=== PATIENT | male | born 1975 | race Caucasian/White ===

== ENCOUNTER 2024-07-25 15:02 | Outpatient (AMB) | payer MEDICARE, MEDICAID, SELFPAY ==
--- OUTSIDE RECORDS SUMMARY | 2024-07-25 15:04 | XMS_ITS ---
Author Organization Unknown ALLERGIES AND ADVERSE REACTIONS No information ASSESSMENT No information CHIEF COMPLAINT No information MEDICATIONS No information OBJECTIVE DATA No information PHYSICAL EXAMINATION No information TREATMENT PLAN Planned Care Start Date Provider Encounter for Check-up [id number] PROBLEMS No information RESULTS No information REVIEW OF SYSTEMS No information SUBJECTIVE DATA No information VITAL SIGNS No information
--- OUTSIDE RECORDS SUMMARY | 2024-07-25 15:04 | XMS_ITS | Data Portability ---
Author Organization [facility], Main Office Address [address] [facility] [address] [place] [address] Care Team Providers Care Planning Manager Name Role Phone CLARY MORALES Primary Care Provider [phone] [facility] Clinical Nursing Professor ZHANE HODGE Manual Arts Therapy Teacher Assessment Encounter Date Assessment Date Assessment LastModified by Organization Details LastModified Time 06/26/2023 06/26/2023 This service was provided using telemedicine. Patient consented to telephone visit Patient was located in the [facility]. Provider was located in the office. No other persons participated in the telemedicine visit except for the patient unless otherwise indicated here. {{}} Total time of visit was 22 minutes. pmadden Not available 06/26/2023 13:26:36 07/24/2023 07/24/2023 This service was provided using telemedicine. Patient consented to telephone visit Patient was located in the [facility]. Provider was located in the office. No other persons participated in the telemedicine visit except for the patient unless otherwise indicated here. {{}} Total time of visit was 22 minutes. pmadden Not available 07/24/2023 11:45:59 04/08/2024 04/08/2024 This service was provided using telemedicine. Patient consented to telephone visit Patient was located in the [facility]. Provider was located in the office. No other persons participated in the telemedicine visit except for the patient unless otherwise indicated here. {{}} Total time of visit was 23 minutes. pmadden Not available 04/08/2024 15:52:16 Plan of Treatment Reminders Order Date Submit Date Provider Last Modified By Organization Details Last Modified Time Details Appointments None record ed. Lab HbA1c (hemog lobin A1c), blood 2023 024 [email or web address] [facility], [address], [place], [address], 4 09:18:50 microa lbumin , urine 2023 024 [email or web address] [facility], [address], [address], [place], [address], 4 10:57:07 BMP, serum or plasma 2023 024 [email or web address] [facility], [address], [address], [place], [address], 4 11:47:21 lipid panel, serum 2023 024 SRUTHI [facility], [address] [place], [address], 4 06:08:23 BMP, serum or plasma 2023 024 SRUTHI [facility], [address] [place], [address], 4 06:08:22 HbA1c (hemog lobin A1c), blood 2023 024 SRUTHI [facility], [address] , [facility] [address], [place], [address], 4 18:05:55 CMP, serum or plasma 2023 024 SRUTHI [facility], [address], [address], [place], [address], 4 18:05:53 microa lbumin /creat inine, mass ratio, urine 2023 024 SRUTHI [facility], [address], [address], [place], [address], 4 18:05:54 Hepati tis C IgG Ab, qual, serum 2023 024 [facility], [address] , [facility] [address], [place], [address], 4 18:05:55 HBsAg (hepat itis B surfac e Ag), EIA, serum 2023 024 [facility], [address] [facility], [address] [address], [place], [address], 4 18:05:57 HIV 1 + 2, meanin gful use set 2023 024 [facility], [address] [facility], [address] [address], [place], [address], 4 18:05:56 trepon isaias pallid um IgG + IgM Ab, QL, IA, serum 2023 024 [facility], [address] [facility], [address] [address], [place], [address], 4 18:05:56 CT + NG RNA, PCR, unspec ified specim en 2023 024 [facility], [address] [facility], [address] [address], [place], [address], 4 18:05:54 hepati tis B core IgM Ab, qual, serum or plasma 2023 024 [facility], [address] [facility], [address] [address], [place], [address], 4 18:05:57 HbA1c (hemog lobin A1c), blood 2023 024 [facility], [address] [facility], [facility] [address], [place], [address], 4 03:04:26 BMP, serum or plasma 2023 024 [facility], [address] [facility], [address] [address], [place], [address], 4 03:04:26 vitami n D, 25-hyd lizz, total, serum 2023 024 [email or web address] [facility], [address], [place], [address], 4 09:23:13 celiac diseas e serolo gy panel, serum 2023 024 SRUTHI [facility], [address] [facility], [facility] [address], [place], [address], 4 03:04:26 Referral diabet ic ophtha lmolog y referr al 2023 024 [email or web address] [facility], [address], [place], [address], 4 09:53:23 nutrit ionist /dieti joby referr al 2023 024 [email or web address] Not available 4 11:05:50 nutrit ionist /dieti joby referr al 2023 024 [email or web address] Not available 4 09:14:57 psychi atrist referr al [address], [address], [place], [address], 4 16:13:59 Procedures None record ed. Surgeries None record ed. Imaging None record ed. Medication Orders buspir one 10 mg tablet 2022 023 [id number], [address] [place], [address], 4 14:19:14 buprop ion HCl SR 150 mg tablet ,12 hr sustai lesia-re lease 2023 024 [place] [id number], [address] [place], [address], 4 15:00:52 buspir one 10 mg tablet 2023 024 [id number], [address] [facility], [place], [address], 4 15:00:52 Patient Targets Encounter Date Encounter Id Patient Goals Patient Target Last Modified By Organization Details Last Modified Time 09/26/2023 [id number] Ongoing of Microalbumin/Cre atinine Ratio yearly Not available Not available Not available Ongoing of Blood Pressure 130 / 80 Not available Not available Not available Ongoing of Hemoglobin A1C 2 times per yr Not available Not available Not available Ongoing of Hemoglobin A1C <7 Not available Not available Not available Ongoing of LDL Direct <100 Not available Not available Not available Ongoing of Cholesterol, LDL <100 Not available Not available Not available Pt advised and agrees to do moderate exercise (such as walking) for approximately 150 minutes per week; to decrease carbohydrate intake (25 % of total carbohydrates or less); and to monitor blood glucose as directed Will bring meter and/or readings to appointments. Patient preferences and goals incorporated in plan and updated/modified as needed to reflect progress toward goal. pmadden Not available 09/26/2023 13:34:22 03/03/2024 [id number] Ongoing of Microalbumin/Cre atinine Ratio yearly Not available Not available Not available Ongoing of Blood Pressure 130 / 80 Not available Not available Not available Ongoing of Hemoglobin A1C 2 times per yr Not available Not available Not available Ongoing of Hemoglobin A1C <7 Not available Not available Not available Ongoing of LDL Direct <100 Not available Not available Not available Ongoing of Cholesterol, LDL <100 Not available Not available Not available Pt advised and agrees to do moderate exercise (such as walking) for approximately 150 minutes per week; to decrease carbohydrate intake (25 % of total carbohydrates or less); and to monitor blood glucose as directed Will bring meter and/or readings to appointments. Patient preferences and goals incorporated in plan and updated/modified as needed to reflect progress toward goal. pmadden Not available 03/03/2024 14:55:22 Patient Instructions Encounter Date Encounter Id Patient Instructions Last Modified By Sukhdev on Details Last Modified Time 06/26/2023 [id number] temporomandibula r disorder: care instructions pmadden Not available 06/26/2023 13:25:41 learning about stress pmadden Not available 06/26/2023 11:43:28 Mental Health Information pmadden Not available 06/26/2023 11:43:28 Medications (OTC , herbal therapies, supplements) reviewed and reconciled with patient and or caregiver, including potential side effects, drug interactions, instructions, and the consequences of not taking medication. Reviewed potential barriers to medication adherence, such as side effects from medication or cost of medication. pmadden Not available 06/26/2023 13:25:58 07/24/2023 [id number] Medications (OTC , herbal therapies, supplements) reviewed and reconciled with patient and or caregiver, including potential side effects, drug interactions, instructions, and the consequences of not taking medication. Reviewed potential barriers to medication adherence, such as side effects from medication or cost of medication. pmadden Not available 07/24/2023 13:04:14 09/26/2023 [id number] starting a weigh t loss plan: care instructions pmadden Not available 09/26/2023 13:36:11 Nutrition Referr al and Weight Management Follow-up Information pmadden Not available 09/26/2023 13:36:11 encouraged pt to check outstanding labs as directed pmadden Not available 09/26/2023 13:15:57 Medications (OTC , herbal therapies, supplements) reviewed and reconciled with patient and or caregiver, including potential side effects, drug interactions, instructions, and the consequences of not taking medication. Reviewed potential barriers to medication adherence, such as side effects from medication or cost of medication. [email or web address] Not available 09/26/2023 13:01:44 03/03/2024 [id number] starting a weigh t loss plan: care instructions pmadden Not available 03/03/2024 15:00:46 Nutrition Referr al and Weight Management Follow-up Information pmadden Not available 03/03/2024 15:00:45 learning about stress pmadden Not available 03/03/2024 15:00:45 Mental Health Information pmadden Not available 03/03/2024 15:00:45 Medications (OTC , herbal therapies, supplements) reviewed and reconciled with patient and or caregiver, including potential side effects, drug interactions, instructions, and the consequences of not taking medication. Reviewed potential barriers to medication adherence, such as side effects from medication or cost of medication. pmadden Not available 03/03/2024 14:55:40 04/08/2024 [id number] Medications (OTC , herbal therapies, supplements) reviewed and reconciled with patient and or caregiver, including potential side effects, drug interactions, instructions, and the consequences of not taking medication. Reviewed potential barriers to medication adherence, such as side effects from medication or cost of medication. pmadden Not available 04/08/2024 15:44:37 Reason for Referral Shoe Shiner/dietitian Refer ral for Body mass index 30+ - obesity Referring Physician: Clary Morales, Internal Medicine, Encounter Date: 09/26/2023 Diabetic Ophthalmology Refer ral for Renal disorder due to type 2 diabetes mellitus Referring Physician: Clary Morales, Internal Medicine, Encounter Date: 09/26/2023 Shoe Shiner/dietitian Refer ral for Body mass index 40+ - severely obese Referring Physician: Clary Morales, Internal Medicine, Encounter Date: 03/03/2024 Psychiatrist Referral for Ma avelino depressive disorder Referring Physician: Clary Morales, Internal Medicine, Encounter Date: 04/08/2024 Results Created Date Observation Date Name Description Value Unit Range Abnormal Flag Note LastModifiedBy Organization Detail LastModifiedTime 09/26/1909/27/2023 BASIC METAB OLIC PANEL (8) glucose 101 mg/dL 70-99 above high normal Not Available [facility] ([facility]) [address] [place], [address], 09/28/2023 06:08:22 09/26/1909/27/2023 BASIC METAB OLIC PANEL (8) BUN 12 mg/dL 6-24 Not Available [facility] ([facility]) [address] [place], [address], 09/28/2023 06:08:22 09/26/1909/27/2023 BASIC METAB OLIC PANEL (8) creatinine 0.86 mg/dL 0.76-1 .27 Not Available [facility] ([facility]) [address] [place], [address], 09/28/2023 06:08:22 09/26/19 24 09/27/2023 BASIC METAB OLIC PANEL (8) eGFR 108 mL/mi n/1.7 3 >59 Not Available [facility] ([facility]) [address], [place], [address], 09/28/2023 06:08:22 09/26/19 24 09/27/2023 BASIC METAB OLIC PANEL (8) BUN/creatini ne ratio 14 9-20 Not Available [facility] ([facility]) [address], [place], [address], 09/28/2023 06:08:22 09/26/19 24 09/27/2023 BASIC METAB OLIC PANEL (8) sodium 135 mmol/ L 134-14 4 Not Available [facility] ([facility]) [address], [place], [address], 09/28/2023 06:08:22 09/26/19 24 09/27/2023 BASIC METAB OLIC PANEL (8) potassium 4.1 mmol/ L 3.5-5. 2 Not Available [facility] ([facility]) [address], [place], [address], 09/28/2023 06:08:22 09/26/19 24 09/27/2023 BASIC METAB OLIC PANEL (8) chloride 95 mmol/ L 96-106 below low normal Not Available [facility] ([facility]) [address] [facility], [place], [address], 09/28/2023 06:08:22 09/26/19 24 09/27/2023 BASIC METAB OLIC PANEL (8) carbon dioxide, total 23 mmol/ L 20-29 Not Available [facility] ([facility]) [address] [facility], [place], [address], 09/28/2023 06:08:22 09/26/19 24 09/27/2023 BASIC METAB OLIC PANEL (8) calcium 10.0 mg/dL 8.7-10 .2 Not Available [facility] ([facility]) [address] [facility], [place], [address], 09/28/2023 06:08:22 09/26/19 24 09/27/2023 LIPID PANEL cholesterol, total 138 mg/dL 100-19 9 Not Available [facility] ([facility]) [address] [facility], [place], [address], 09/28/2023 06:08:23 09/26/19 24 09/27/2023 LIPID PANEL triglyceride s 208 mg/dL 0-149 above high normal Not Available [facility] ([facility]) [address] [facility], [place], [address], 09/28/2023 06:08:23 09/26/19 24 09/27/2023 LIPID PANEL HDL cholesterol 46 mg/dL >39 Not Available [facility] ([facility]) [address] [facility], [place], [address], 09/28/2023 06:08:23 09/26/19 24 09/27/2023 LIPID PANEL VLDL cholesterol gabino 34 mg/dL 5-40 Not Available [facility] ([facility]) [address] [place], [address], 09/28/2023 06:08:23 09/26/19 24 09/27/2023 LIPID PANEL LDL chol calc ([facility]) 58 mg/dL 0-99 Not Available [facility]) [address] [facility], [place], [address], 09/28/2023 06:08:23 09/26/19 24 09/27/2023 LIPID PANEL comment: ONCOLOGIST Not Available [facility] ([facility]) [address] [place], [address], 09/28/2023 06:08:23 03/03/20 24 03/04/2024 COMP. METAB OLIC PANEL (14) glucose 98 mg/dL 70-99 normal Not Available [facility] ([facility]) [address] [facility] [place], [address], 03/04/2024 18:05:53 03/03/20 24 03/04/2024 COMP. METAB OLIC PANEL (14) BUN 14 mg/dL 6-24 normal Not Available [facility] ([facility]) [address] [facility] [place], [address], 03/04/2024 18:05:53 03/03/20 24 03/04/2024 COMP. METAB OLIC PANEL (14) creatinine 0.64 mg/dL 0.76-1 .27 below low normal Not Available [facility] ([facility]) [address] [facility] [place], [address], 03/04/2024 18:05:53 03/03/20 24 03/04/2024 COMP. METAB OLIC PANEL (14) eGFR 118 mL/mi n/1.7 3 >59 normal Not Available [facility] ([facility]) [address] [facility] [place], [address], 03/04/2024 18:05:53 03/03/20 24 03/04/2024 COMP. METAB OLIC PANEL (14) BUN/creatini ne ratio 22 9-20 above high normal Not Available [facility] ([facility]) [address] [facility] [place], [address], 03/04/2024 18:05:53 03/03/20 24 03/04/2024 COMP. METAB OLIC PANEL (14) sodium 140 mmol/ L 134-14 4 normal Not Available [facility] ([facility]) [address] [facility] [place], [address], 03/04/2024 18:05:53 03/03/20 24 03/04/2024 COMP. METAB OLIC PANEL (14) potassium 4.5 mmol/ L 3.5-5. 2 normal Not Available [facility] ([facility]) [address] [place], [address], 03/04/2024 18:05:53 03/03/20 24 03/04/2024 COMP. METAB OLIC PANEL (14) chloride 101 mmol/ L 96-106 normal Not Available [facility] ([facility]) [address] [place], [address], 03/04/2024 18:05:53 03/03/20 24 03/04/2024 COMP. METAB OLIC PANEL (14) carbon dioxide, total 24 mmol/ L 20-29 normal Not Available [facility] ([facility]) [address] [place], [address], 03/04/2024 18:05:53 03/03/20 24 03/04/2024 COMP. METAB OLIC PANEL (14) calcium 10.3 mg/dL 8.7-10 .2 above high normal Not Available [facility] ([facility]) [address] [place], [address], 03/04/2024 18:05:53 03/03/20 24 03/04/2024 COMP. METAB OLIC PANEL (14) protein, total 7.4 g/dL 6.0-8. 5 normal Not Available [facility] ([facility]) [address] [place], [address], 03/04/2024 18:05:53 03/03/20 24 03/04/2024 COMP. METAB OLIC PANEL (14) albumin 5.0 g/dL 4.1-5. 1 normal Not Available [facility] ([facility]) [address] [place], [address], 03/04/2024 18:05:53 03/03/20 24 03/04/2024 COMP. METAB OLIC PANEL (14) globulin, total 2.4 g/dL 1.5-4. 5 Not Available [facility] ([facility]) [address] [facility] [place], [address], 03/04/2024 18:05:53 03/03/20 24 03/04/2024 COMP. METAB OLIC PANEL (14) bilirubin, total 0.4 mg/dL 0.0-1. 2 normal Not Available [facility] ([facility]) [address] [facility] [place], [address], 03/04/2024 18:05:53 03/03/20 24 03/04/2024 COMP. METAB OLIC PANEL (14) alkaline phosphatase 74 IU/L 44-121 normal Not Available [facility]) [address] [facility] [place], [address], 03/04/2024 18:05:53 03/03/20 24 03/04/2024 COMP. METAB OLIC PANEL (14) AST (SGOT) 22 IU/L 0-40 normal Not Available [facility] ([facility]) [address] [facility] [place], [address], 03/04/2024 18:05:53 03/03/20 24 03/04/2024 COMP. METAB OLIC PANEL (14) ALT (SGPT) 32 IU/L 0-44 normal Not Available [facility] ([facility]) [address] [place], [address], 03/04/2024 18:05:53 03/03/20 24 03/04/2024 ALBUM IN/CR EAT RATIO , RANDO M UR creatinine, urine 88.5 mg/dL not estab. normal Not Available [facility] ([facility]) [address] [place], [address], 03/04/2024 18:05:54 03/03/20 24 03/04/2024 ALBUM IN/CR EAT RATIO , RANDO M UR albumin, urine 4.8 ug/mL not estab. Not Available [facility] ([facility]) [address] [place], [address], 03/04/2024 18:05:54 03/03/20 24 03/04/2024 ALBUM IN/CR EAT RATIO , TERRY Arreola UR alb/creat ratio 5 mg/g_ creat 0-29 Dawna l: 0 - 29 Moder ately incre ased: 30 - 300 Sever eddie incre ased: >300 Not Available [facility] ([facility]) [address] [facility], [place], [address], 03/04/2024 18:05:54 03/03/20 24 03/04/2024 CHLAM YDIA/ GC AMPLI FICAT ION chlamydia trachomatis, TAVO NEGATI VE negati ve Not Available [facility] ([facility]) [address] [facility], [place], [address], 03/04/2024 18:05:54 03/03/20 24 03/04/2024 CHLAM YDIA/ GC AMPLI FICAT ION neisseria gonorrhoeae, TAVO NEGATI VE negati ve Not Available [facility] ([facility]) [address] [facility], [place], [address], 03/04/2024 18:05:54 03/03/20 24 03/04/2024 HCV ANTIB YING RFX TO QUANT PCR HCV Ab NON REACTI VE non reacti ve Not Available [facility] ([facility]) [address] [place], [address], 03/04/2024 18:05:55 03/03/20 24 03/04/2024 HCV ANTIB YING RFX TO QUANT PCR interpretati on: COMMEN T Not infec sierra with HCV unles s early or acute infec tion is suspe cted (whic h may be delay ed in an immun ocomp romis ed indiv idual ), or other evide nce exist s to indic ate HCV infec tion. Not Available [facility] ([facility]) [address] [facility], [place], [address], 03/04/2024 18:05:55 03/03/20 24 03/04/2024 HEMOG LOBIN A1C hemoglobin A1C 6.2 % 4.8-5. 6 above high normal Predi abete s: 5.7 - 6.4 Diabe lizzy: >6.4 Glyce prudencio contr ol for adult s with diabe lizzy: <7.0 Not Available [facility] ([facility]) [address] [place], [address], 03/04/2024 18:05:55 03/03/20 24 03/04/2024 T PALLI DUM SCREE REINA CASCA DE T pallidum antibodies NON REACTI VE non reacti ve Not Available [facility] ([facility]) [address] [place], [address], 03/04/2024 18:05:56 03/03/20 24 03/04/2024 HIV AB/P2 4 AG WITH REFLE X HIV Ab/P24 Ag screen NON REACTI VE non reacti ve HIV-1 /HIV- 2 antib odies and HIV-1 p24 antig en were NOT detec sierra. There is no labor atory evide nce of HIV infec tion. HIV Negat snehal Not Available [facility] ([facility]) [address] [facility], [place], [address], 03/04/2024 18:05:56 03/03/20 24 03/04/2024 HBSAG SCREE N HBsAg screen NEGATI VE negati ve Not Available [facility] ([facility]) [address] [place], [address], 03/04/2024 18:05:57 03/03/2003/04/2024 HEP B CORE AB, IGM hep B core Ab, IgM NEGATI VE negati ve Not Available [facility] ([facility]) [address] [place], [address], 03/04/2024 18:05:57 Result Notes None recorded. Problems Name Problem SNOMED Code Status Onset Date Resolution Date Notes Provider Name and Address Organization Details Recorded Time Depressi ve disorder 89406874 Completed 03/05/2022 Clary Morales PA-C [address], [place], [address] , [facility] 2 21:05:23 Anxiety disorder 922531081 Active 2011 Jael wei, [facility] 7 14:34:39 Cellulit is and abscess of buttock 502423605 Completed 201102/03/2014 RECORDED 01/26/20 12 9:03AM BY MAGNUS SIDDIQUI MA, ANNOTATI ON/ADDEN DUM Not Available [facility] 4 15:13:47 Chest pain [id number] Completed 201102/03/2014 RECORDED 01/26/20 12 9:03AM BY MAGNUS SIDDIQUI MA, ANNOTATI ON/ADDEN DUM Not Available [facility] 4 15:13:47 Recurren t major depressi ve episodes , in full remissio n Completed 201103/05/2022 Clary Morales PA-C [address], [place], [address] , [facility] 2 21:05:57 Exposure to organism Completed 201102/03/2014 RECORDED 01/26/20 12 9:03AM BY MAGNUS SIDDIQUI MA, ANNOTATI ON/ADDEN DUM Not Available [facility] 4 15:13:47 Malaise and fatigue [id number] Completed 201102/03/2014 IMPRESSI ON: LONG HX OF MIXED ANXIETY AND DEPRESSI ON, ON WELLBUTR IN ALONE WHICH HE HAS BEEN NON COMPLIAN T WITH. TRIED ON ZOLOFT IN THE PAST WHICH HE BELIEVES WAS INEFFECT SNEHAL. MORE RECENTLY TRIED ON CELEXA, HAD AGGITATI ON AND SUICIDAL THOUGHTS . D/C AFTER 12 DAYS. FOR NOW WILL RESTART WELLBUTR IN AND USE BENZO PRN SPARINGL Y. MOOD STABLE, DECLINES FURTHER PSYCH EVAL OR OR THERAPY. ; RECORDED 04/02/20 12 7:43AM BY SAMARA SCHULTZK I, ANNOTATI ON/ADDEN DUM Not Available [facility] 4 15:13:47 Influenz a vaccine needed [id number] 06 Completed 201102/03/2014 RECORDED 03/11/20 12 8:38AM BY SAMARA ACUÑA I, OFFICE VISIT Not Available [facility] 4 15:13:47 Noninfec tious gastroen teritis [id number] Completed 201102/03/2014 RECORDED 01/26/20 12 9:03AM BY MAGNUS SIDDIQUI MA, ANNOTATI ON/ADDEN DUM Not Available [facility] [facility] 4 15:13:47 Internal hordeolu m [id number] Completed 201102/03/2014 RECORDED 01/26/20 12 9:03AM BY MAGNUS SIDDIQUI MA, ANNOTATI ON/ADDEN DUM Not Available [facility] 4 15:13:47 Pure hypercho lesterol emia [id number] Completed 201102/03/2014 RECORDED 01/26/20 12 9:03AM BY MAGNUS SIDDIQUI MA, ANNOTATI ON/ADDEN DUM Not Available [facility] 4 15:13:47 Insomnia 494966971 Active 2011 Jael wei MA [facility] 7 14:34:35 Administ ration of bacteria l and viral vaccine Completed 200802/03/2014 RECORDED 12/31/19 09 2:17PM BY TONYA ADAMES, OFFICE VISIT Not Available [facility] 4 15:13:47 High risk sexual behavior 663559300 Completed 201102/03/2014 RECORDED 01/26/20 12 9:03AM BY MAGNUS SIDDIQUI MA, ANNOTATI ON/ADDEN DUM Not Available [facility] 4 15:13:47 Adult health examinat ion Completed 201102/03/2014 RECORDED 01/26/20 12 9:03AM BY MAGNUS SIDDIQUI MA, ANNOTATI ON/ADDEN DUM Not Available [facility] 4 15:13:47 Drug abuse 23484073 Active 2011 Jael wei CM [facility] 7 14:34:41 Tobacco dependen ce syndrome 11315697 Active 2011 Jael wei CM [facility] 7 14:34:51 Cellulit is and abscess of buttock 604924931 Completed 201102/23/2014 RECORDED 01/26/20 12 9:03AM BY MAGNUS SIDDIQUI MA, ANNOTATI ON/ADDEN DUM Not Available [facility] 4 06:00:27 Chest pain 82365622 Completed 201102/23/2014 RECORDED 01/26/20 12 9:03AM BY MAGNUS SIDDIQUI MA, ANNOTATI ON/ADDEN DUM Not Available [facility] 4 06:00:27 Exposure to organism Completed 201102/23/2014 RECORDED 01/26/20 12 9:03AM BY MAGNUS SIDDIQUI MA, GONZALOATI ON/ADDEN DUM Not Available [facility] 4 06:00:27 Malaise and fatigue 097632109 Completed 201102/23/2014 IMPRESSI ON: LONG HX OF MIXED ANXIETY AND DEPRESSI ON, ON WELLBUTR IN ALONE WHICH HE HAS BEEN NON COMPLIAN T WITH. TRIED ON ZOLOFT IN THE PAST WHICH HE BELIEVES WAS INEFFECT SNEHAL. MORE RECENTLY TRIED ON CELEXA, HAD AGGITATI ON AND SUICIDAL THOUGHTS . D/C AFTER 12 DAYS. FOR NOW WILL RESTART WELLBUTR IN AND USE BENZO PRN SPARINGL Y. MOOD STABLE, DECLINES FURTHER PSYCH EVAL OR OR THERAPY. ; RECORDED 04/02/20 12 7:43AM BY SAMARA ACUÑA I, ANNOTATI ON/ADDEN DUM Not Available [facility] 4 06:00:27 Influenz a vaccine needed [id number] 06 Completed 201102/23/2014 RECORDED 03/11/20 12 8:38AM BY SAMARA ACUÑA I, OFFICE VISIT Not Available [facility] 4 06:00:27 Noninfec tious gastroen teritis 29725569 Completed 201102/23/2014 RECORDED 01/26/20 12 9:03AM BY MAGNUS SIDDIQUI MA, ANNOTATI ON/ADDEN DUM Not Available [facility] 4 06:00:27 Internal aneesh arreola [id number] Completed 201102/23/2014 RECORDED 01/26/20 12 9:03AM BY MAGNUS SIDDIQUI MA, ANNOTATI ON/ADDEN DUM Not Available [facility] 4 06:00:27 Pure hypercho lesterol emia 063700476 Completed 201102/23/2014 RECORDED 01/26/20 12 9:03AM BY MAGNUS SIDDIQUI MA, ANNOTATI ON/ADDEN DUM Not Available [facility] 4 06:00:27 Administ ration of bacteria l and viral vaccine Completed 200802/23/2014 RECORDED 12/31/19 09 2:17PM BY TONYA ADAMES, OFFICE VISIT Not Available [facility] 4 06:00:27 High risk sexual behavior 270614721 Completed 201102/23/2014 RECORDED 01/26/20 12 9:03AM BY MAGNUS SIDDIQUI MA, ANNOTATI ON/ADDEN DUM Not Available [facility] 4 06:00:27 Adult health examinat ion Completed 201102/23/2014 RECORDED 01/26/20 12 9:03AM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 minimize gi upset - will get urgent ov c Didi re: insulin / diabetic teaching (45 min) later this week Mixed hyperlipidemia 267 279432 E78.2 encouraged use of statin Elevated blood-pressure reading without diagnosis of hypertension 521015928 R03.0 pt had nl bp last week at pe - lot of stress/anx iety about multiple issues, octavio labs results - will cont. to monitor. Blood pressure in the pre-hypert ensive range. Discussed management of cardiovasc ular risks and strategies to control BP. [id number] Lino beard Main Office [address] [facility] [address] [place] [address] 03/13/2017 13:56:48 03/13/2017 15:15:43 Essential hypertension 96551712 I10 had nl Cr a few months ago, will recheck next o.v. next month Anxiety disorder 0864134 06 F41.9 see below Needs infl uenza immunization 054901465 Z23 Mixed anxi ety and depressive disorder 763906442 F41.8 will begin ssri and arrange for pt to see Marina Uncontroll ed type 2 diabetes mellitus 805334056 E11.65 cont metformin & will get urgent ov c Didi re: possible insulin or jardiance / diabetic teaching (45 min) later this week [id number] Elio Ruiz MD Main Office [address] [facility] [address] [place] [address] 04/06/2017 12:47:52 04/06/2017 14:09:41 Uncontrolled type 2 diabetes mellitus 117379250 E11.65 Total time spent teaching and coordinati ng diabetic care 45 minutes. Basic physiology of Type II Diabetes Mellitus was reviewed. Glucose records were reviewed. Pt. was instructed on use of new glucose meter and advised to monitor glucose 3 times per day ; before each main meal. Goal for fasting glucose is 80-130 and 1-2 hrs after the meal under 180. Pt. was instructed on 18 00 gabino ADA diet and given 7 day sample menus to use at home. Pt. was advised to start exercise activity by walking 30 min at least 3 times weekly and increase weekly or by weekly to 4-6 day per week. If unable to walk , pt. should use other exercise modalities /equipment that is stationary at home or in the gym for that amount of time weekly or water exercises. D/c Metformin 500. Start Metformin ER 750 mg 2 po qd with supper. F/u 6 weeks. Body mass index 30+ - obesity 288077692 Z68.37 [id number] Barbie calvo Main Office [address] [facility] [address] [place] [address] 04/12/2017 13:26:34 04/12/2017 14:45:12 Essential hypertension 27814739 I10 HTN decreased from previous visit but remains elevated, continue Lisinopril 5mg daily and add HCTZ 12.5mg daily. Assess kidney function and trend liver function studies - see below Body mass index 30+ - obesity 648587701 E66.9 Z68.35 Pt has lost 30lb over prev 4 months, encouraged to incorporat e proper diet and strongly encouraged exercise Mixed anxi ety and depressive disorder 914042742 F41.8 Fluoxetine dosage increased from 20mg to 40mg as there was no improvemen t of depressive symptoms or and reports no side effects. cont f/u c BHN Liver func tion tests outside reference range 853575734 R94.5 pt states is drinking much less etoh - recheck lft's - see above [id number] Lino beard Main Office [address] [facility] [address] [facility] [place] [address] 05/14/2017 14:28:39 05/14/2017 15:38:03 Uncontrolled type 2 diabetes mellitus 930116105 E11.65 has f/u c Didi in 3 wks Essential hypertension 60372214 I10 will double up Lisinopril 5mg daily and HCTZ 12.5mg daily to 10mg and 25mg respective ly. Assess kidney function Mixed anxi ety and depressive disorder 481798097 F41.8 Fluoxetine dosage increased from 40mg to 80mg as there was no improvemen t of depressive symptoms and reports no side effects (pt had tolerated 80mg past few wks prior but decompensa sierra when went back to 40mg) - pt still has elevated rafa/phq scores - cont f/u c BHN, gave number of BHN crisis Body mass index 30+ - obesity 331391776 E66.9 Z68.35 Pt has lost add'l 12 lbs - diet and exercise Liver func tion tests outside reference range 692333521 R94.5 pt states is drinking much less etoh - lft's normalized last month! Gastroesop hageal reflux disease 214862091 K21.9 [id number] Elio Ruiz MD Main Office [address] [facility] [address] [facility] [place] [address] 09/07/2017 13:27:50 09/07/2017 14:31:13 Generalized anxiety disorder 18052146 F41.1 Major depr essive disorder 924503112 F32.0 Will start sertraline and see him back in 2 weeks. [id number] Esequiel Rodríguez MD Main Office [address] [facility] [address] [facility] [place] [address] 09/24/2017 08:38:57 09/24/2017 10:05:27 Mixed anxiety and depressive disorder 576357731 F41.8 pt states is feeling better / more focused but pt still has elevated rafa/phq scores - cont f/u c BHN, gave number of BHN crisis -- cont oow thru 3.26 - stressed importance of going outside for long walks while he is oow to clear his mind, help him lower his bp and to lose wt advised pt to stop fluox 80mg qd and take fluox 40mg qd x 3-4 days to taper dose, meanwhile cont sertraline 100mg qd, cont prn candi advised pt to call me on - consider increase sertraline to 150mg qd f/u c [facility] in near future - consider referral to psychiatri st or at least director of psychology for med titration/ review - sent athenatext message to [facility] Essential hypertension 76787634 I10 cont lis 10mg qd and hctz 25mg qd, and add low dose ccb Uncontroll ed type 2 diabetes mellitus 966639424 E11.65 has f/u c Didi in 3-4 wks [id number] Jose Alfredo Quinn MD Main Office [address] [facility] [address] [place] [address] 10/02/2017 09:06:33 10/02/2017 10:19:42 Mixed anxiety and depressive disorder 182303739 F41.8 pt has passing thoughts of suicidalit y and excessivel y high rafa/phq scores, having difficulti es on ssri alone Ximena from [facility] spoke c pt here in exam room - pt has contracted for safety that he will f/u c her colleague Betty @ 11 am later today and that she will assist in getting him in to PHP since he does not qualify for an inpt psychiatri c admission (no plan or intent to harm self) - pt to see psychiatri st ~ qd in PHP and can stabilize on newer meds gave oow note for another month and added addendums to his STD paperwork - will have med records fax over 25 minute office visit with greater than 50% of the visit face-to-fa ce with the patient and/or family providing counseling and/or coordinati on of care. [id number] Esequiel Rodríguez MD Main Office [address] [facility] [address] [place] [address] 11/26/2017 09:04:08 11/26/2017 10:09:23 Recurrent major depressive episodes, in full remission 515688061 F33.42 encouraged pt to call N to get another appointmen t Anxiety disorder 0951072 06 F41.9 see below Essential hypertension 10645278 I10 fairly stable, but in acute lbp now - so bp most likely is stable Administra tion of pneumococcal vaccine 73559997 Z23 pt declines at this time Uncontroll ed type 2 diabetes mellitus 202917367 E11.65 encouraged him to get his outstandin g labs done - depending on results see if needs to f/u c Didi Low back pain 583556793 M54.5 [id number] Francesca Maradiaga Main Office [address] [facility] [address] [place] [address] 10/24/2018 13:56:39 10/24/2018 15:10:10 Adult health examination 930625566 Z00.00 Uncontroll ed type 2 diabetes mellitus 173872151 E11.65 better control of sugars lately - A1c down to 5.9 despite ~ 40 lbs of wt gain - cont metformin as dir Administra tion of viral vaccine 21411016 Z23 Gastroesop hageal reflux disease 229493563 K21.9 Snoring 20998528 R06.83 father has patricia. will send to sleep specialist to r/o patricia Hematochezia 450527365 K 62.5 and occ hematemesi s - pt did not get egd/colon c [facility] as directed - will send to [facility] Essential hypertension 71409288 I10 bp elevated - will increase lis to 20mg qd used to take ccb last yr - will resume this hs Depressive disorder 8 9007 F32.9 rafa/phq scores high - pt on max dose of ssri - cont med as dir, will get bhn eval - needs to see med prescriber Mixed hyperlipidemia 267 491874 E78.2 Alcohol abuse 38609055 F 10.10 seen by diann jay back in 05.02 - no records to review - apparently pt has continued to drink etoh and refuses to go to AA Tobacco de pendence syndrome 87876503 F17.290 Body mass index 40+ - severely obese 008460531 Z68.41 Morbid obesity 053801755 E66.01 [id number] Clary Morales PA-C Main Office [address] [facility] [address] [facility] [place] [address] 12/05/2018 14:03:33 12/05/2018 15:39:50 Recurrent major depressive episodes, in full remission 280579639 F33.42 encouraged pt to call [facility] to get another appointmen t. Reports no current depression Anxiety disorder 1944998 06 F41.9 see above Morbid obesity 834271496 E66.01 discussed dietary modificati ons and exercise 3 x week for 30 mins. Uncontroll ed type 2 diabetes mellitus 361861677 E11.65 better control of sugars lately - A1c down to 5.9 despite ~ 40 lbs of wt gain - cont metformin as dir Essential hypertension 08469741 I10 bp elevated - will increase lis to 40mg qd no tolerate ccb - added to allergy list Snoring 31756161 R06.83 father has patricia. will send to sleep specialist to r/o patricia Pure hypercholesterolemia 758358905 E78.00 Inadequate immune status 854820150 Z23 Z28.3 pt requests for his employer [id number] Clary Morales PA-C [facility] [address] [facility] 207 [facility] [place] [address] 12/10/2019 06:09:31 12/10/2019 13:07:40 Spasm of muscle of lower back 5257280381 2695370 M62.830 rec moist heat, HEP, tylenol 500mg 1-2 tabs up to 3x/day prn, m. relaxer prn (octavio hs), lumbar support pillow advised pt to stop nsaids d/t h/o DM pt requested oown for today & tomorrow will order labs separately to have him do ~ 1-2 wks ac his upcoming PE [id number] Clary Morales PA-C Main Office [address] [facility] 207 [facility] [place] [address] 01/21/2020 08:32:43 01/21/2020 10:05:58 Adult health examination 453390581 Z00.00 Essential hypertension 40286615 I10 bp elevated - but has been off his meds x 2 wks, resume meds as dir - bp check in 2 wks Gastroesop hageal reflux disease 228292351 K21.9 Renal diso rder due to type 2 diabetes mellitus 398056276 E11.22 N18.1 Continue quarterly follow-up of serum creatinine , blood pressure, glycemic control. Referral to renal as indicated. has tried johnna from his brother - much more convenient - will attempt to see if covered by his ins. Depressive disorder 1171 9007 F32.0 rafa/phq better - but he felt more energetic on wellbutrin - will change back, and get him back to [facility] Anxiety disorder 06 F41.9 see above Mixed hyperlipidemia 267 287200 E78.2 Morbid obesity 873110878 E66.01 discussed dietary modificati ons and exercise 3 x week for 30 mins. Body mass index 40+ - severely obese 483994262 E66.01 Z68.41 Fatigue 69166010 R53.83 Chronic ki dney disease stage 1 697006391 N18.1 Counseling 406926280 Z71 .9 Referral for counseling with [facility] / ELAINE Edwards. Please provide patient with contact info to schedule their appointmen t. González# email: [email or web address] [id number] Clary Morales PA-C Main Office [address] [address] 02/11/2020 15:31:09 02/12/2020 09:31:02 Essential hypertension 30139149 I10 bp much better p resumed meds - cont as dir Recurrent major depressive episodes, in full remission 631744811 F33.42 stable on med, cont as dir, encouraged pt to call N if feels down again Fatigue 54418164 R53.83 rev recent labs c pt - no evidence of anemia & nl tsh - likely d/t patricia - see below Snoring 88398046 R06.83 father has patricia. will send to sleep specialist to r/o patricia Mixed hyperlipidemia 267 569908 E78.2 rec low carb diet to help lower your trigs -- also rec statin, recheck lipids in ~ 6 months Goiter 7524341 E04.9 pt states neck size has grown over past few months - will check thyroid u/s Anxiety disorder F41.9 sig better - cont med as dir Tuberculos is screening 618775132 Z11.1 pt requested ppd for work - return in 2 days to get read [id number] Elio Ruiz MD Main Office [address] [facility] [address] [place] [address] 02/13/2020 15:51:30 02/13/2020 15:55:54 [id number] Clary Morales PA-C [facility] [address] [facility] 207 [place] [address] 04/22/2020 08:41:27 04/22/2020 15:30:44 Snoring 28718145 R06.83 father has patricia - pt was sent to sleep medical educator in 03.04 - apparently had sleep study done, but nothing sent over to review in the chart - urged him to call them to find out results and see if he needs a repeat sleep study and/or cpap. he needs to have this addressed ac 05.03.20 as per his employer. we also discussed possibilit y of having fmla - encouraged him to call his HR in [place], [place] to fwd paperwork to us, and we'd be happy to fill out for him Renal diso rder due to type 2 diabetes mellitus 738602460 E11.22 N18.1 Continue quarterly follow-up of serum creatinine , blood pressure, glycemic control. Referral to renal as indicated. Chronic ki dney disease stage 1 592256926 N18.1 [id number] Clary Morales PA-C [facility] [address] [facility] 207 [place] [address] 04/29/2020 08:04:32 04/29/2020 13:23:11 Renal disorder due to type 2 diabetes mellitus 888552992 E11.22 N18.1 Continue quarterly follow-up of serum creatinine , blood pressure, glycemic control. Referral to renal as indicated. Chronic ki dney disease stage 1 941510664 N18.1 Mixed hyperlipidemia 267 435856 E78.2 rec low carb diet to help lower your trigs -- also rec statin, recheck lipids in ~ 6 months Snoring 21217432 R06.83 father has patricia - pt was sent to sleep medical educator in 03.04 - apparently had sleep study done, but nothing sent over to review in the chart - urged him to call them to find out results and see if he needs a repeat sleep study and/or cpap. he needs to have this addressed ac 10.19.20 as per his employer. we also discussed possibilit y of having fmla - encouraged him to call his HR in [place], [place] to fwd paperwork to us, and we'd be happy to fill out for him update 10.15 - ins. approval pending for in-office sleep study, and we did not get fmla/std paperwork yet - urged him to call HR again and have them cc: to him for verificati on, meanwhile - will give oown x 1 month to have this (and below) addressed Hematochezia 601706125 K 62.5 and occ hematemesi s - pt did not get egd/colon c [facility] d/t financial issues at the time - will re-try Gastroesop hageal reflux disease 251015002 K21.9 see above re: possible egd/colon [id number] Clary Morales PA-C [facility] [address] [facility] [address] [place] [address] 06/01/2020 07:20:14 06/01/2020 13:25:05 Renal disorder due to type 2 diabetes mellitus 985357709 E11.22 N18.1 encouraged pt to get outstandin g labs done, and get his DM eye exam too Snoring 09168589 R06.83 father has patricia - pt was sent to sleep medical educator in . - apparently had sleep study done, but nothing sent over to review in the chart - urged him to call them to find out results and see if he needs a repeat sleep study and/or cpap. he needs to have this addressed ac 10.19.20 as per his employer. we also discussed possibilit y of having fmla - encouraged him to call his HR in [place], [place] to fwd paperwork to us, and we'd be happy to fill out for him update 10.15 - ins. approval pending for in-office sleep study, and we did not get fmla/std paperwork yet - urged him to call HR again and have them cc: to him for verificati on, meanwhile - will give oown x 1 month to have this (and below) addressed update 11.17 - seen by sleep specialist 11.5 - no note to review - pending sleep study tomorrow night. fmla paperwork was sent to his employer a few wks ago. pt states he has been in touch c [facility] nt office as well (but ? if he rec'd pink slip from his employer) Hematochezia 699247770 K 62.5 and occ hematemesi s - pt did not get egd/colon c [facility] d/t financial issues at the time - will re-try update .17 - pt states he contacted gi - postponed his 11.4 eval - he will get in touch with them in the near future p his snoring/sl eeping issues addressed Mixed hyperlipidemia 267 831811 E78.2 rec low carb diet to help lower your trigs -- just began statin, recheck lipids in ~ 4 months [id number] Clary SCHULER-C [facility] [address] [facility] [address] [place] [address] 10/19/2020 08:30:44 10/19/2020 16:20:04 Major depressive disorder 866883646 F32.3 just recently sent updated rx for wellbutrin - hasn't started yet - urged him to do so (qd initially then increase to bid as gordon) pt states he made an apptmt c [facility] for next wk Anxiety disorder 06 F41.9 see above - ? agoraphobi a too - hasn't left his home in a while to get rx's, urged him to have friend take him sounds like he has been experienci ng panic attacks lately - explained pros/cons of prn benzo - pt wishes to have small rx for prn use, low risk for addiction Apnea 5976904 R06.81 rev recent note - combinatio n of obstructiv e and central - cont cpap, f/u c sleep med Onychomyco sis of toenails 318576947 B35.1 pt requests pod eval [id number] Francesca Maradiaga Main Office [address] [facility] [address] [place] [address] 01/26/2021 08:48:25 01/26/2021 09:48:27 Adult health examination 584954345 Z00.00 Anxiety disorder F41.9 severe on rafa - ? agoraphobi a too - see below sounds like he has been experienci ng panic attacks lately - explained pros/cons of prn benzo - pt wishes to have small rx for prn use, low risk for addiction - but lately admits to using the lorazepam to help him to sleep - requests refills - see below Depressive disorder 3548 9007 F32.2 rafa/phq severe- but he is feeling more energetic on wellbutrin - urged him to call [facility] to make apptmt = hasn't done so yet, they're just down the street from him - he has a referral already Essential hypertension 32611314 I10 bp stable - cont as dir - will change to combo pill - less $ Mixed hyperlipidemia 267 848692 E78.2 rec low carb diet to help lower your trigs -- recheck lipids Renal diso rder due to type 2 diabetes mellitus 561351709 E11.22 N18.1 encouraged pt to get get his DM eye exam and to see geophysical laboratory chief (has referral for this) cont meds as dir check labs Tobacco de pendence syndrome [id number] F17.290 Administra tion of pneumococcal vaccine 11340720 Z23 pt declines at this time Apnea 7749338 R06.81 rev recent note - combinatio n of obstructiv e and central - cont cpap, f/u c sleep med Chronic ki dney disease stage 1 291400524 N18.1 Insomnia 224007037 G47.0 0 trial c trazodone to help c sleep and mood - hopefully will not need benzo to help sleep in the future Body mass index 40+ - severely obese 631517373 E66.01 Z68.41 [id number] Clary Morales PA-C Tele[facility]alt [facility] [address] [facility] [address] [facility] [place] [address] 02/22/2021 08:22:52 02/22/2021 12:55:09 Anxiety disorder F41.9 severe on rafa - ? agoraphobi a too - see below sounds like he has been experienci ng panic attacks lately - explained pros/cons of prn benzo - pt wishes to have small rx for prn use, low risk for addiction - but lately admits to using the lorazepam to help him to sleep8.10 update -- pending upcoming court date for 04.07 for his prior job - cindy marx takes 1/4 - 1/2 tab most days - encourage to take less frequently - octavio when has panic attack Depressive disorder 1234 9003 F32.2 rafa/phq severe- but he is feeling more energetic on wellbutrin - urged him to call [facility] to make apptmt = hasn't done so yet, they're just down the street from him - he has a referral already 8.10 -- has reached out to [facility], but still hasn't connected c them for a date yet - if still unsuccessf ul, then call [facility] below Insomnia [id number] G47.0 0 trial c trazodone to help c sleep and mood - hopefully will not need benzo to help sleep in the future rec increase traz to 75mg qhs Hematochezia 898756906 K 62.5 pending see gi on 03.08 Mixed hyperlipidemia 267 483224 E78.2 rec low carb diet to help lower your trigs, cont statin as dir Exposure t o sexually transmissible disorder 039904782 Z20.2 pt requested sti testing Counseling [id number] Z71 .9 Referral for counseling with [facility] / ELAINE Edwards. Please provide patient with contact info to schedule their appointmen tShantal Claudio# email: [email or web address] Chronic ki dney disease stage 1 118241791 N18.1 Renal diso rder due to type 2 diabetes mellitus 873980599 E11.22 N18.1 better control of sugars lately - A1c stable at 6.2 despite ~ 40 lbs of wt gain - cont metformin as dir will get podiatry eval and eye md stokes [id number] Francesca Maradiaga Tele[facility] [address] [facility] [address] [facility] [place] [address] 08/16/2021 11:00:31 08/18/2021 11:28:57 Male pattern alopecia 13456989 L64.9 x ~ 6 months, getting progressiv eddie worse - has tried home remedies, aloe - no sig help - rec trial of rogaine while awaiting derm eval Renal diso rder due to type 2 diabetes mellitus 403198322 E11.22 N18.1 better control of sugars lately - A1c stable at 6.2 despite ~ 40 lbs of wt gain - cont metformin as dir will get podiatry divya and eye md stokes 2.22 - no labs/ov in several months - will check labs, and discuss further at next ov Gastroesop hageal reflux disease 321689302 K21.9 cont ppi as dir by gi - apparently had egd/colon - no records to review - will attempt to get Hematochezia 347801914 K 62.5 see above - likely has occ hem bleed - no help c otc agents - will send in steroid cream - if no better then consider colorectal eval Apnea 0622277 R06.81 rev recent note - combinatio n of obstructiv e and central - feeling much better as per pt - cont cpap, f/u c sleep med Exposure t o sexually transmissible disorder 917628722 Z20.2 pt requested sti testing Chronic ki dney disease stage 1 482844707 N18.1 Hypertensi ve renal disease 01782987 I12.9 bp stable as per pt- cont as dir [id number] Clary Morales PA-C Main Office [address] [facility] 207 [place] [address] 03/01/2022 12:51:59 03/01/2022 14:09:28 Adult health examination 237930296 Z00.00 Body mass index 30+ - obesity 822525069 E66.01 Z68.39 Pt has lost add'l wt - diet > exercise, cont hawthorn extract Anxiety disorder 5593035 06 F41.9 severe on rafa - ? agoraphobi a too - see below sounds like he has been experienci ng panic attacks lately - explained pros/cons of prn benzo - pt wishes to have small rx for prn use, low risk for addiction - but lately admits to using the lorazepam to help him to sleep8.22 - ? has agoraphobi a - encouraged pt to call [facility] Apnea 9051881 R06.81 combinatio n of obstructiv e and central - feeling much better as per pt - cont cpap, f/u c sleep med Chronic ki dney disease stage 1 320868390 N18.1 Renal diso rder due to type 2 diabetes mellitus 245163913 E11.22 N18.1 better control of sugars lately - A1c stable at 6.2 despite ~ 40 lbs of wt gain - cont metformin as dir will get podiatry eval and eye md stokes 2.22 - no labs/ov in several months - will check labs, and discuss further at next ov 8.22 - A1c down to 6.0, pending eye md in 2 months Mixed hyperlipidemia 267 588795 E78.2 rec low carb diet to help lower your trigs, cont statin as dir Major depr essive disorder 754738239 F32.0 just recently sent updated rx for wellbutrin - hasn't started yet - urged him to do so (qd initially then increase to bid as gordon) encouraged pt to call [facility] for next wk Gastroesop hageal reflux disease 203990495 K21.9 cont ppi as dir by gi Hypertensi ve renal disease 73854825 I12.9 bp elevated - rec double up combo pill Onychomyco sis of toenails 712525052 B35.1 pt requests pod eval External hemorrhoids 239 32895 K64.4 ext hem bleed most days - no sig help c hem cream - will try supp & get colorectal sx eval 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 has agoraphobi a - encouraged pt to call [facility] [id number] Clary Morales PA-C Main Office [address] [facility] [address] 07/03/2022 12:56:44 07/03/2022 13:47:22 Renal disorder due to type 2 diabetes mellitus 713577999 E11.22 N18.1 better control of sugars lately - A1c stable at 6.2 despite ~ 40 lbs of wt gain - cont metformin as dir will get podiatry eval and eye md stokes 2.22 - no labs/ov in several months - will check labs, and discuss further at next ov 8.22 - A1c down to 6.0, pending eye in 2 months 12.22 - a1c down to 5.8 - rec decrease metformin to qd, cont otc agents to help c wt loss/sugar as directed Anxiety disorder 3832296 06 F41.9 severe on rafa - ? agoraphobi a too - see below sounds like he has been experienci ng panic attacks lately - explained pros/cons of prn benzo - pt wishes to have small rx for prn use, low risk for addiction - but lately admits to using the lorazepam to help him to sleep8.22 - ? has agoraphobi a - encouraged pt to call [facility] 12.22 - stable, pt requests refill of prn benzo, to begin therapy next month Palpitations 88723287 R0 0.2 ? d/t SE of truvy for wt loss - check labs, if worse in future then consider BB Chronic ki dney disease stage 1 860639929 N18.1 Hypertensi ve renal disease 56510836 I12.9 bp stable, cont meds as dir [id number] Clary Morales PA-C Main Office [address] [facility] [address] [place] [address] 12/28/2022 14:17:14 12/28/2022 15:43:19 Anxiety disorder F41.9 severe on rafa - ? agoraphobi a too - see below sounds like he has been experienci ng panic attacks lately - explained pros/cons of prn benzo - pt wishes to have small rx for prn use, low risk for addiction - but lately admits to using the lorazepam to help him to sleep8.22 - ? has agoraphobi a - encouraged pt to call [facility] 12. - stable, pt requests refill of prn benzo, to begin therapy next month 6.23- Pt did not go to therapy due to insurance. RAFA score 21. see below, will add buspar & encouraged pt to see therapist Major depr essive disorder 158998607 F32.0 just recently sent updated rx for wellbutrin - hasn't started yet - urged him to do so (qd initially then increase to bid as gordon) 6.23- Taking Wellbutrin with no improvemen t. PHQ 9 score 22. will add buspar Renal diso rder due to type 2 diabetes mellitus 865916886 E11.22 N18.1 better control of sugars lately - A1c stable at 6.2 despite ~ 40 lbs of wt gain - cont metformin as dir will get podiatry divya and eye md stokes 2.22 - no labs/ov in several months - will check labs, and discuss further at next ov 8.22 - A1c down to 6.0, pending eye md in 2 months 12.22 - a1c down to 5.8 - rec decrease metformin to qd, cont otc agents to help c wt loss/sugar as directed 6.23 - will recehck labs (pending). continue meds as directed. pt concerned about recent wt gain - see below - will attempt to rx c ozempic - will see if covered by his ins, may need PA Hemorrhoids 65682472 K64 .9 see below Hematochezia 023617476 K 62.5 see above - likely has occ hem bleed - no help c otc agents - will send in steroid cream - if no better then consider colorectal eval 6.23 - seen by colorectal sx - no surgery offered ==== last colon 10.21 Body mass index 40+ - severely obese 304343590 E66.01 Z68.41 see dm above Chronic ki dney disease stage 1 736529707 N18.1 [id number] Clary Morales PA-C Tele[facility] [address] [facility] [address] [place] [address] 02/13/2023 08:31:01 02/13/2023 10:24:44 Major depressive disorder 358775958 F32.2 just recently sent updated rx for wellbutrin - hasn't started yet - urged him to do so (qd initially then increase to bid as gordon) 6.23- Taking Wellbutrin with no improvemen t. PHQ 9 score 22. will add buspar 8.1.23 - see above Panic diso rder with agoraphobia 78304882 F40.01 see above - - ? has agoraphobi a - encouraged pt to call [facility] 8.1.23 - see above Renal diso rder due to type 2 diabetes mellitus 002838938 E11.22 N18.1 better control of sugars lately - A1c stable at 6.2 despite ~ 40 lbs of wt gain - cont metformin as dir will get podiatry divya and eye md stokes 2.22 - no labs/ov in several months - will check labs, and discuss further at next ov 8.22 - A1c down to 6.0, pending eye md in 2 months 12.22 - a1c down to 5.8 - rec decrease metformin to qd, cont otc agents to help c wt loss/sugar as directed 6.23 - will recehck labs (pending). continue meds as directed. pt concerned about recent wt gain - see below - will attempt to rx c ozempic - will see if covered by his ins, may need PA 8..23 - no like SE tayler so stated he will stop Anxiety disorder F41.9 severe on rafa - ? agoraphobi a too - see below sounds like he has been experienci ng panic attacks lately - explained pros/cons of prn benzo - pt wishes to have small rx for prn use, low risk for addiction - but lately admits to using the lorazepam to help him to sleep8.22 - ? has agoraphobi a - encouraged pt to call [facility] 12. - stable, pt requests refill of prn benzo, to begin therapy next month 6.23- Pt did not go to therapy due to insurance. RAFA score 21. see below, will add buspar & encouraged pt to see therapist 8.1.23 - has been able to go outside more often lately, so appears buspar has helped a little - rec slowly uptitrate dose. 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 agoraphobi a too - see below sounds like he has been experienci ng panic attacks lately - explained pros/cons of prn benzo - pt wishes to have small rx for prn use, low risk for addiction - but lately admits to using the lorazepam to help him to sleep8.22 - ? has agoraphobi a - encouraged pt to call [facility] 12.22 - stable, pt requests refill of prn benzo, to begin therapy next month 6.23- Pt did not go to therapy due to insurance. RAFA score 21. see below, will add buspar & encouraged pt to see therapist 8.1.23 - has been able to go outside more often lately, so appears buspar has helped a little - rec slowly uptitrate dose. 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 (the primary source of his stress lately), and advised pt to see therapist 11.23 - increased stress from lip lesions lately, worried about itable to go out in the community more freq latelymice problem at his aptmt resolvedwi ll be looking into getting [place] [employer] & nitric oxide - helping to decrease smoking/dr ceceing, more energy = so he defers increasing his bupropion and buspar at this timept requests refill of prn benzoencou raged pt to call [address] [place] [address].o rg Influenza vaccination declined 095052718 Z28.21 Herpes labialis 5052120 B00.1 Better now c herpecin L (symptomat ic relief) - but not fully resolved - trial c abreva topically, will give valtrex for future PRN 11.23 - better p used valtrexapp arently ID eval was turned awayencour aged pt to go for outstandin g labsconsid er ID eval if + Major depr essive disorder 123850126 F32.2 just recently sent updated rx for wellbutrin - hasn't started yet - urged him to do so (qd initially then increase to bid as gordon)6.23- Taking Wellbutrin with no improvemen t. PHQ 9 score 22. will add buspar 11.23 - see above Renal diso rder due to type 2 diabetes mellitus 837293377 E11.22 better control of sugars lately - A1c stable at 6.2 despite ~ 40 lbs of wt gain - cont metformin as dir will get podiatry eval and eye md evmarina 2.22 - no labs/ov in several months - will check labs, and discuss further at next ov 8.22 - A1c down to 6.0, pending eye md in 2 months 12.22 - a1c down to 5.8 - rec decrease metformin to qd, cont otc agents to help c wt loss/sugar as directed 6.23 - will recehck labs (pending). continue meds as directed. pt concerned about recent wt gain - see below - will attempt to rx c ozempic - will see if covered by his ins, may need PA 8..23 - no like SE trulicearle so stated he will stop Chronic ki dney disease stage 1 371727918 N18.1 Hypertensi ve renal disease 53742843 I12.9 bp stable, cont meds as dir Mixed hyperlipidemia 267 636734 E78.2 rec low carb diet to help lower your trigs, cont statin as dir Body mass index 30+ - obesity 834317118 E66.01 Z68.39 Pt has lost add'l wt - diet > exercise, cont hawthorn extract 11. - rec increase sleep, exercise, better diet (low carb) [id number] Clary Morales PAAnalisa Telehealt h [address] [facility] [address] [place] [address] 06/26/2023 10:12:56 06/26/2023 13:30:39 Anxiety disorder 660449124 F41.9 severe on rafa - ? agoraphobi a too - see below sounds like he has been experienci ng panic attacks lately - explained pros/cons of prn benzo - pt wishes to have small rx for prn use, low risk for addiction - but lately admits to using the lorazepam to help him to sleep8.22 - ? has agoraphobi a - encouraged pt to call [facility] 12.22 - stable, pt requests refill of prn benzo, to begin therapy next month 6.23- Pt did not go to therapy due to insurance. RAFA score 21. see below, will add buspar & encouraged pt to see therapist 8.1.23 - has been able to go outside more often lately, so appears buspar has helped a little - rec slowly uptitrate dose. 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 of aptar building for mice (the primary source of his stress lately), and advised pt to see therapist 11.23 - increased stress from lip lesions lately, worried about itable to go out in the community more freq latelymice problem at his aptmt resolvedwi ll be looking into getting into a new job [place] [employer] & nitric oxide - helping to decrease smoking/dr ha, more energy = so he defers increasing his bupropion and lj at this timept requests refill of prn benzoencou raged pt to call [address] [place] [address].o rg 12.23 - see above - pt states has had difficulty getting a therapist from [address] [place] [address].o rg ---- gave add'l resources on portal to help him find a therapist (as well as read these phone #s to him from our mental health handout)me anwhile, rec increase buspar 10mg to tidpt frederick ridley 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 PHQ 9 score 22. will add buspar 11.23 - see above Temporoman dibular joint disorder 10948191 M26.609 advised pt to f/u c his dentist - may need mouthguard or referral to oral surgeonzander hewitt trial of prn ice/heat [id number] Clary Morales PA-C Telehealt h [address] [facility] [address] [facility] [place] [address] 07/24/2023 10:31:25 07/24/2023 13:17:49 Anxiety disorder 233822749 F41.9 severe on rafa - ? agoraphobi a too - see below sounds like he has been experienci ng panic attacks lately - explained pros/cons of prn benzo - pt wishes to have small rx for prn use, low risk for addiction - but lately admits to using the lorazepam to help him to sleep8.22 - ? has agoraphobi a - encouraged pt to call [facility] 12.22 - stable, pt requests refill of prn benzo, to begin therapy next month 6.23- Pt did not go to therapy due to insurance. RAFA score 21. see below, will add buspar & encouraged pt to see therapist 8.1.23 - has been able to go outside more often lately, so appears buspar has helped a little - rec slowly uptitrate dose. 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 of [employer] [facility] [employer] (the primary source of his stress lately), and advised pt to see therapist 11.23 - increased stress from lip lesions lately, worried about itable to go out in the community more freq latelymice problem at his aptmt resolvedwi ll be looking into getting into a new job in [place] [employer] & nitric oxide - helping to decrease smoking/dr inking, more energy = so he defers increasing his bupropion and buspar at this timept requests refill of prn benzoencou raged pt to call [address] [place] [address].o rg 12.23 - see above - pt states has had difficulty getting a therapist from [address] [place] [address].o rg ---- gave add'l resources on portal to help him find a therapist (as well as read these phone #s to him from our mental health handout)me anwhile, rec increase buspar 10mg to tidpt frederick ridley 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 - awaiting call backon a waiting list for new housing - problems c jennifer creased buspar seems to have helped him to remain calm in a stressful situation c his landlord - cont meds as dir Major depr essive disorder 837973824 F32.2 just recently sent updated rx for wellbutrin - hasn't started yet - urged him to do so (qd initially then increase to bid as gordon)6.23- Taking Wellbutrin with no improvemen t. PHQ 9 score 22. will add buspar 1.24 - see above Viral uppe r respiratory tract infection 535116944 J06.9 x 4-5 days, better past 1-2 days as per pt - cont prn supportive care Renal diso rder due to type 2 diabetes mellitus 651088502 E11.22 better control of sugars lately - A1c stable at 6.2 despite ~ 40 lbs of wt gain - cont metformin as dir will get podiatry divya and eye md stokes 2.22 - no labs/ov in several months - will check labs, and discuss further at next ov 8.22 - A1c down to 6.0, pending eye md in 2 months 12.22 - a1c down to 5.8 - rec decrease metformin to qd, cont otc agents to help c wt loss/sugar as directed 6.23 - will recehck labs (pending). continue meds as directed. pt concerned about recent wt gain - see below - will attempt to rx c ozempic - will see if covered by his ins, may need PA 8.1.23 - no like SE trulicity so stated he will stop 1.24 - check labs ac next ov [id number] Francesca Maradiaga Main Office [address] [facility] [address] [place] [address] 09/26/2023 12:51:31 09/26/2023 13:39:19 Renal disorder due to type 2 diabetes mellitus 303196610 E11.22 better control of sugars lately - A1c stable at 6.2 despite ~ 40 lbs of wt gain - cont metformin as dir will get podiatry evmarina and eye md stokes 2.22 - no labs/ov in several months - will check labs, and discuss further at next ov 8.22 - A1c down to 6.0, pending eye md in 2 months 12.22 - a1c down to 5.8 - rec decrease metformin to qd, cont otc agents to help c wt loss/sugar as directed 6.23 - will recehck labs (pending). continue meds as directed. pt concerned about recent wt gain - see below - will attempt to rx c ozempic - will see if covered by his ins, may need PA 8..23 - no like SE toñoearle so stated he will stop 1.24 - check labs ac next ov 3.24 - check labs, f/u c eye mdconsider baby asa 81mg EC Body mass index 30+ - obesity 416233142 E66.01 Z68.37 Pt has lost add'l wt - diet > exercise, cont hawthorn extract 11.23 - rec increase sleep, exercise, better diet (low carb) 3.24 - has lost > 15 lbs recently - cont diet/suppl ements, encouraged increased exercise Fatigue 50303755 R53.83 Z00.00 Hyperlipidemia 12398247 E78.5 Z00.00 FASTING if trigs remain elevated then consider krill oil in addition to statin Chronic ki dney disease stage 1 725077531 N18.1 [id number] Clary Morales PA-C Main Office [address] [facility] [address] [place] [address] 03/03/2024 14:03:45 03/03/2024 15:06:43 Anxiety disorder 517247564 F41.9 severe on rafa - ? agoraphobi a too - see below sounds like he has been experienci ng panic attacks lately - explained pros/cons of prn benzo - pt wishes to have small rx for prn use, low risk for addiction - but lately admits to using the lorazepam to help him to sleep8.22 - ? has agoraphobi a - encouraged pt to call [facility] 12.22 - stable, pt requests refill of prn benzo, to begin therapy next month 6.23- Pt did not go to therapy due to insurance. RAFA score 21. see below, will add buspar & encouraged pt to see therapist 8.1.23 - has been able to go outside more often lately, so appears buspar has helped a little - rec slowly uptitrate dose. 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 (the primary source of his stress lately), and advised pt to see therapist 11.23 - increased stress from lip lesions lately, worried about itable to go out in the community more freq latelymice problem at his aptmt resolvedwi ll be looking into getting into a new job [place] [employer] & nitric oxide - helping to decrease smoking/dr ha, more energy = so he defers increasing his bupropion and buspar at this timept requests refill of prn benzoencou raged pt to call [address] [place] [address].o rg 12.23 - see above - pt states has had difficulty getting a therapist from [address] [place] [address].o rg ---- gave add'l resources on portal to help him find a therapist (as well as read these phone #s to him from our mental health handout)me anwhile, rec increase buspar 10mg to tidpt frederick ridley 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 - congratula sierra him on setting this up and encouraged him to go do the best he can on it - wished him well 1.24 - he didn't take medical administrative technician test last month, has pending apptmt c ma rehab worker tomorrow to help c job training/c melecio called a few therapy places, including [facility] - awaiting call backon a waiting list for new housing - problems c neighborin creased buspar seems to have helped him to remain calm in a stressful situation c his landlord - cont meds as dir 8.24 - pt states ran out of buspar so will refill for himless stress lately - looking into working c his sister - cooking/ch efno see therapist Major depr essive disorder [id number] F32.2 just recently sent updated rx for wellbutrin - hasn't started yet - urged him to do so (qd initially then increase to bid as gordon)6.23- Taking Wellbutrin with no improvemen t. PHQ 9 score 22. will add buspar 1.24 - see above 8.24 - will refill Chronic ki dney disease stage 1 [id number] N18.1 Hypertensi ve renal disease [id number] I12.9 bp stable, cont meds as dir Renal diso rder due to type 2 diabetes mellitus [id number] E11.22 better control of sugars lately - A1c stable at 6.2 despite ~ 40 lbs of wt gain - cont metformin as dir will get podiatry evmarina and eye md stokes 2.22 - no labs/ov in several months - will check labs, and discuss further at next ov 8.22 - A1c down to 6.0, pending eye md in 2 months 12.22 - a1c down to 5.8 - rec decrease metformin to qd, cont otc agents to help c wt loss/sugar as directed 6.23 - will recehck labs (pending). continue meds as directed. pt concerned about recent wt gain - see below - will attempt to rx c ozempic - will see if covered by his ins, may need PA 8.1.23 - no like SE toñoity so stated he will stop 1.24 - check labs ac next ov 3.24 - check labs, f/u c eye mdconsider baby asa 81mg EC 8.24 - check labs Body mass index 40+ - severely obese [id number] E66.01 Z68.41 see dm abovegaine d wt recently, but motivated to ex more since is feeling better as of late Venereal d isease screening [id number] Z11.3 pt requested testing [id number] Clary Morales PA-C [facility] [address] [facility] [address] [place] [address] 04/08/2024 14:23:04 04/08/2024 16:13:59 Anxiety disorder [id number] F41.9 severe on rafa - ? agoraphobi a too - see below sounds like he has been experienci ng panic attacks lately - explained pros/cons of prn benzo - pt wishes to have small rx for prn use, low risk for addiction - but lately admits to using the lorazepam to help him to sleep8.22 - ? has agoraphobi a - encouraged pt to call [facility] 12.22 - stable, pt requests refill of prn benzo, to begin therapy next month 6.23- Pt did not go to therapy due to insurance. RAFA score 21. see below, will add buspar & encouraged pt to see therapist 8.1.23 - has been able to go outside more often lately, so appears buspar has helped a little - rec slowly uptitrate dose. 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 (the primary source of his stress lately), and advised pt to see therapist 11.23 - increased stress from lip lesions lately, worried about itable to go out in the community more freq latelymice problem at his aptmt resolvedwi ll be looking into getting into a new job in near [employer]star sierra seam[employer] capsules & nitric oxide - helping to decrease smoking/dr ha, more energy = so he defers increasing his bupropion and buspar at this timept requests refill of prn benzoencou raged pt to call [address] [place] [address].o rg 12.23 - see above - pt states has had difficulty getting a therapist from [address] [place] [address].o rg ---- gave add'l resources on portal to help him find a therapist (as well as read these phone #s to him from our mental health handout)me anwhile, rec increase buspar 10mg to tidpt frederick ridley 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 - awaiting call backon a waiting list for new housing - problems c neighborin creased buspar seems to have helped him to remain calm in a stressful situation c his landlord - cont meds as dir 8.24 - pt states ran out of buspar so will refill for himless stress lately - looking into working c his sister - cooking/ch efno see therapist 9.24 - pt states he is looking for a therapist ([facility], gave him a few options for a therapist) , see below Major depr essive disorder [id number] F32.2 just recently sent updated rx for wellbutrin - hasn't started yet - urged him to do so (qd initially then increase to bid as gordon)6.23- Taking Wellbutrin with no improvemen t. PHQ 9 score 22. will add buspar 1.24 - see above 8.24 - will refill 9.24 - rafa/phq persists severe - will get psych consult Renal diso rder due to type 2 diabetes mellitus [id number] E11.22 better control of sugars lately - A1c stable at 6.2 despite ~ 40 lbs of wt gain - cont metformin as dir will get podiatry divya and eye md stokes 2.22 - no labs/ov in several months - will check labs, and discuss further at next ov 8.22 - A1c down to 6.0, pending eye md in 2 months 12.22 - a1c down to 5.8 - rec decrease metformin to qd, cont otc agents to help c wt loss/sugar as directed 6.23 - will recehck labs (pending). continue meds as directed. pt concerned about recent wt gain - see below - will attempt to rx c ozempic - will see if covered by his ins, may need PA 8.1.23 - no like SE trulicity so stated he will stop 1.24 - check labs ac next ov 3.24 - check labs, f/u c eye mdconsider baby asa 81mg EC 8.24 - check labs 9.24 - a1c ~ stable at 6.2 - cont meds as dir Abnormal feces [id number] R19.5 Vitamin D deficiency [id number] E55.9 Health Concerns Section Related Observation LastModified by Organization Detai ls LastModified Time None Recorded Concern Status LastModified by Organization Details LastModified Time None Recorded Advance Directives Directive N: Payers Encounter Date Sequence Insurance Name Policy Number Policy Jeffries Covered Member ID Jeffries Member ID Guarantor Name 06/26/2023 2 [place] [facility] Ho Telles [id number] Ho Telles 06/26/2023 1 [facility] (MEDICARE REPLACEMENT/A DVANTAGE - HMO) [facility] Ho Telles [id number] Ho Telles 07/24/2023 2 [place] [facility] Ho Telles [id number] Ho Telles 07/24/2023 1 [facility] (MEDICARE REPLACEMENT/A DVANTAGE - HMO) [facility] Ho Telles [id number] Ho Telles 09/26/2023 2 [place] [facility] Ho Telels [id number] Ho Telles 09/26/2023 1 [facility] (MEDICARE REPLACEMENT/A DVANTAGE - HMO) [facility] Ho Telles [id number] Ho Telles 03/03/2024 2 [place] [facility] Ho Telles [id number] Ho Telles 03/03/2024 1 [facility] (MEDICARE REPLACEMENT/A DVANTAGE - HMO) [facility] Ho Arreola Telles [id number] Ho Arreola Elfego 04/08/2024 2 [place] [facility] Ho Jeanno [id number] Ho Arreola Elfgeo 04/08/2024 1 [facility] (MEDICARE REPLACEMENT/A DVANTAGE - HMO) [facility] Ho Jeanno [id number] Ho Arreola Telles Notes Date Note Type Note Provider Name and Address Organization Details Recorded Time 3 text/html Anxiety/DepressionReport ed bypatient.Quality:mood worse;increased anxiety Severity:denies suicidal ideations Context:major life stressors Associated Symptoms:denies homicidal ideations TH visit for 1 month f/u p awvreviewed labs c pt - normalunfortunately he has not connected c a therapist - states he tried a few times from [employer] website, then gave up on thishis anxiety persists, but admits he is trying to get out of his apartment on occasionis considering taking an entry test for medical administrative technician tomorrowrarely uses 1/2 benzo prnno SI Clary Morales PA-C [address] [address], [place], [address], [facility] 06/26/2023 13:27:11 4 text/html TH for 1 month f/u anx/dep increased buspar c some help - appeared to be more calm when landlord was giving him a hard time c/o 4-5 days of feeling ill - cough, fatigue - nephew had flu, was exposed to him - nephew was hospitalized/better now taking coricidin hbp, feeling better past 2 days - no f/c, didn't use tyl or ibu Clary Morales PA-C [address] [address], [place], [address], [facility] 07/24/2023 13:14:37 4 text/html Diabetes F/UReported bypatient.Context:checki ng feet regularly;not seeing eye doctor yearly;not taking aspirin daily Associated Symptoms:no dizziness; no increased thirst; no increased urination; no blurred vision; no numbness of feet;weight loss ( lbs) Francesca wei, [facility] 10/02/2023 14:03:13 4 text/html Anxiety/DepressionReport ed bypatient.Quality:sympto ms improved Severity:denies suicidal ideations Context:major life stressors Associated Symptoms:denies homicidal ideations here for f/u visitfeeling better in general but still scored mod severe on rafa/phqno see therapisthas been looking for a job Clary Morales PA-C [address] [facility] [address], [place], [address], [facility] 03/06/2024 13:07:04 4 text/html Anxiety/DepressionReport ed bypatient.Quality:sympto ms improved Severity:denies suicidal ideations Context:major life stressors Associated Symptoms:denies homicidal ideations here for f/u visitfeeling better in general but still scored mod severe on rafa/phqno see therapisthas been looking for a job 9.24 - [facility] to [facility] home for an eval - offered a few choices for therapists to see, pending choose one Clary Morales PA-C [address], [place], [address], [facility] 04/08/2024 15:54:28"
[2024-07-25 15:12] VITALS: BP 136/84; PULSE 88; O2SAT 95; BMI 42.2
--- NOTE | 2024-07-25 15:12 | MHC.OFFVIS ---
Vital Signs 07/25/24 15:12 Height 5 ft 8 in Weight 277 lb 6 oz BMI 42.2 BP 136/84 Blood Pressure Location Lt brachial Position Sitting Pulse 88 Pulse Source Pulse Oximeter Pulse Oximetry (%) 95 Oxygen Delivery Method Room Air Intake Visit Reasons: ENP-LIZETH Intake Note: [facility] Allergies amlodipine Allergy (Mild, Verified 07/25/24 15:07) Chest Pain citalopram Allergy (Mild, Verified 07/25/24 15:07) unk dulaglutide [From Trulicity] Allergy (Mild, Verified 07/25/24 15:07) Constipation Medication List - Last Reconciled 07/25/24 by Maria Acevedo PA-C atorvastatin 40 mg PO BEDTIME bupropion HCl SR 150 mg PO BID buspirone 10 mg PO BID lisinopril-hydrochlorothiazide 20-12.5 mg 2 tabs PO DAILY loratadine (Allergy Relief (loratadine)) 10 mg PO DAILY lorazepam 1 mg PO DAILY PRN metformin ER 750 mg PO DAILY omeprazole 20 mg PO DAILY valacyclovir 2,000 mg (2 x 1 gram) PO Q12H HPI Comments Details: 49 year old here for a sleep evaluation per PCP, Dr. Warren You [facility] 2019 diagnosed with LIZETH. Apr 26 2024- Jul 25, 2024 Compliance data on phone juan ramon: my air >4 hours daily total 7 hours 9min Leaks 9.02/hr pressures are not set, machine is not working well Total days used 85/90 = 97.0% AHI 1.4 Is having trouble with the pressures on his machine and would like new equipment, and to be evaluated for apnea as it has been over 4 years since his last study. He has trouble falling asleep and staying asleep, gets up several times a night gasping, choking for air. He denies restless legs, numbness, numbness or tingling in his feet. He does have cramps when sleeping, and waking up hills. He denies morning headaches, balance or vertigo. He is trying to lose weight, changing his eating habits, as he is pre-diabetic. He is depressed, has alot of anxiety does not leave his home. He lost his job recently and his mother , and that lead to his life events tragically escalating. Mood is bad. He lost his job recently and history of child malik trauma. Memory is okay. [facility] Medical History Apnea Chronic kidney disease, stage 1 Hematochezia GERD (gastroesophageal reflux disease) Temporomandibular joint (TMJ) pain Hemorrhoid Hypertensive renal disease Insomnia Drug abuse Tobacco dependence Panic disorder with agoraphobia Anxiety disorder Major depressive disorder Morbid obesity Mixed hyperlipidemia Renal disorder Onychomycosis of toenail Surgical History H/O esophagogastroduodenoscopy H/O colonoscopy Review of Systems Const All systems reviewed & are unremarkable except as noted in HPI and below Physical Exam Vital Signs: Last Vital Signs Pulse 88 07/25/24 15:12 BP 136/84 07/25/24 15:12 Pulse Ox 95 07/25/24 15:12 Oxygen Delivery Method Room Air 07/25/24 15:12 BMI result Body Mass Index 42.2 Const General: cooperative, comfortable and no acute distress Nutritional Appearance: obese (BMI 42) and overweight Orientation/consciousness: patient oriented x3 Eyes Pupils: Equal, round and reactive pupils present Neck Neck: Yes full ROM and Yes supple Resp Effort & Inspection: normal respiratory effort and able to speak in complete sentences Neuro General: patient oriented x3 Cranial nerves: Yes CN's II-XII intact bilaterally, Yes Facial sensation intact/muscles of mastication intact, Yes Equal, round and reactive pupils present, Yes Normal accommodation reflex present, Yes Bilaterally intact EOM present, Yes Nystagmus not present, Yes Normal facial strength present, Yes Midline tongue present, Yes Ability to bilaterally rotate head present and Yes Ability to bilaterally elevate shoulders present Cognition (Neuro): normal cognition Gait exam (Neuro): Normal gait present Motor exam (neuro): 5/5 motor strength present throughout and Normal motor muscle tone present throughout Deep tendon reflexes (DTR's): Right triceps reflex intensity grade: 2+, Left triceps reflex intensity grade: 2+, Rt Biceps (C5, C6): 2+, Left biceps reflex intensity grade: 2+, Right brachioradialis reflex intensity grade: 2+, Left brachioradialis reflex intensity grade: 2+, Right patellar reflex intensity grade: 2+, Left patellar reflex intensity grade: 2+, Right ankle reflex intensity grade: 2+ and Left ankle reflex intensity grade: 2+ Coordination: [id number] test normal Psych Appearance: well kempt Affect: Labile affect present and Anxious affect present Attitude: cooperative Insight: Fair insight present (Psych) Judgement: Fair judgement present (Psych) Results Reviewed Results Reviewed: LIZETH compliance on my air JUAN RAMON : Apr 26 2024- Jul 25, 2024 Compliance data on phone juan ramon: my air >4 hours daily total 7 hours 9min Leaks 9.02/hr pressures are not set, machine is not working well Total days used 85/90 = 97.0% AHI 1.4 Assessment & Plan Assessment & Plan (1) Fatigue due to sleep pattern disturbance: Code(s): R53.83 - Other fatigue; G47.9 - Sleep disorder, unspecified Category: Medical (2) Anxiety and depression: Code(s): F41.9 - Anxiety disorder, unspecified; F32.A - Depression, unspecified Category: Medical Plan Home Sleep Study, evaluation of apnea, gasping, choking. Labs: Fatigue Muscle cramps. Referral for Behavioral Health: Depression and Anxiety d/t Trauma Orders: Orders RT home sleep study Today G47.9 - Sleep disorder, unspecified, R53.83 - Other fatigue Vitamin B12 and Folate Today F32.A - Depression, unspecified, F41.9 - Anxiety disorder, unspecified, G47.9 - Sleep disorder, unspecified, R53.83 - Other fatigue TSH reflex Free T4 Today F09 - Unspecified mental disorder due to known physiological condition Complete Blood Count no Diff Today R25.2 - Cramp and spasm, T80.89XA - Other complications following infusion, transfusion and therapeutic injection, initial encounter Comprehensive Met. Panel Today F32.A - Depression, unspecified, F41.9 - Anxiety disorder, unspecified, G47.9 - Sleep disorder, unspecified, R53.83 - Other fatigue Methylmalonic Acid Today G47.9 - Sleep disorder, unspecified, R53.83 - Other fatigue Homocysteine Today G47.9 - Sleep disorder, unspecified, R53.83 - Other fatigue Vitamin D 25-OH Total Today G47.9 - Sleep disorder, unspecified, R53.83 - Other fatigue Referrals Behavioral Health Referral F32.A - Depression, unspecified, F41.9 - Anxiety disorder, unspecified, G47.9 - Sleep disorder, unspecified, R53.83 - Other fatigue Medications: New bupropion HCl SR 150 mg PO BID 60 tabs 0RF loratadine (Allergy Relief (loratadine)) 10 mg PO DAILY 30 tabs 0RF omeprazole 20 mg PO DAILY 30 caps 0RF buspirone 10 mg PO BID 60 tabs 0RF lisinopril-hydrochlorothiazide 20-12.5 mg 2 tabs PO DAILY 60 tabs 0RF lorazepam 1 mg PO DAILY PRN 30 tabs 0RF anxiety metformin ER 750 mg PO DAILY 30 tabs 0RF valacyclovir 2,000 mg (2 x 1 gram) PO Q12H 30 tabs 0RF Coding Level of Care Code New Pt Level 4 (47022) Diagnoses Fatigue due to sleep pattern disturbance R53.83; G47.9 Anxiety and depression F41.9; F32.A Sleep Questionnaire Difficulty falling asleep: Yes Difficulty staying asleep?: Yes Number of arousals: 2x Snoring: Yes Witnessed apneas: Yes Gasping arousals: Yes Nocturia: No GERD: Yes Vivid dreams: Yes Acting out dreams: Yes Abnormal behavior in sleep: No Abnormal movements in sleep: Yes Morning headaches: No Excessive daytime sleepiness: Yes Daytime naps: Yes Restless legs: Yes Hallucinations: No Sleep paralysis: Yes Drop attacks: No Sleep Study: Yes (2019) CPAP: Yes
== END 2024-07-25 16:08 | disposition home or self-care (01) ==
PROVIDERS: Visit Provider Physician Assistant Medical
DX: R53.83 Other fatigue (principal); G47.9 Sleep disorder, unspecified; F41.9 Anxiety disorder, unspecified; F32.A Depression, unspecified
CPT/HCPCS: 99204

== ENCOUNTER → 2024-07-25 15:02 | Outpatient (BNVA) | payer MEDICARE, MEDICAID, SELFPAY | PROVIDERS: Visit Provider Physician Assistant Medical | DX: R53.83 Other fatigue (principal); G47.9 Sleep disorder, unspecified; F41.9 Anxiety disorder, unspecified; F32.A Depression, unspecified | CPT/HCPCS: 99202 ==

== ENCOUNTER → 2024-09-09 14:15 | Outpatient (REF) | payer MEDICARE, MEDICAID, SELFPAY ==
--- OUTSIDE RECORDS SUMMARY | 2024-09-09 17:55 | XMS_ITS ---
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 Name Role Phone PRAVEENA GALLAGHER Unavailable [phone] Reason for Referral Not Available Allergies, adverse reactions, alerts No known allergies Problem List Problem Status Onset Date Resolved Date Morbid obesity Active 2024-06-15 N/A Screening for colorectal cancer Active 1 N/A Type 2 diabetes mellitus wit h diabetic nephropathy, without long-term current use of insulin Active 2024-06-15 N/A HTN (hypertension) Active 2024-06-15 N/A Depression Active 2024-06-15 N/A Social History Sex Male Functional Status No Information Mental Status No Information Assessments Not Available Plan of Care Not Available
--- OUTSIDE RECORDS SUMMARY | 2024-09-09 17:55 | XMS_ITS | Data Portability ---
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 Patient consented to telephone visit Patient was located in the [facility]. Provider was located in the office. No other persons participated in the telemedicine visit except for the patient unless otherwise indicated here. {{}} Total time of visit was 22 minutes. pmadden Not available 06/26/2023 13:26:36 07/24/2023 07/24/2023 This service was provided using telemedicine. Patient consented to telephone visit Patient was located in the [facility]. Provider was located in the office. No other persons participated in the telemedicine visit except for the patient unless otherwise indicated here. {{}} Total time of visit was 22 minutes. pmadden Not available 07/24/2023 11:45:59 04/08/2024 04/08/2024 This service was provided using telemedicine. Patient consented to telephone visit Patient was located in the [facility]. Provider was located in the office. [...] Lab HbA1c (hemog lobin A1c), blood 2023 Spock[facility] (Centralized Electronic Ordering - All Locations), Patient Can Go To The Location Of Their Choice, 09:33:46 BMP, serum or plasma 2023 [employer] [facility] (Centralized [facility] Ordering - All Locations), Patient Can Go To The Location Of Their Choice, 5 09:33:47 vitami n D, 25-hyd lizz, total, serum 2023 [email or web address], [address], [place], [address], 09:23:13 celiac diseas e serolo gy panel, serum 2023 [facility] [employer] [facility] ([facility] Ordering - All Locations), Patient Can Go To The Location Of Their Choice, 09:33:47 HbA1c (hemog lobin A1c), blood 2023 [email or web address] [facility] (Centralized Electronic Ordering - All Locations), Patient Can Go To The Location Of Their Choice, 18:05:55 CMP, serum or plasma 2023 SRUTHI [facility] (Centralized Electronic Ordering - All Locations), Patient Can Go To The Location Of Their Choice, 18:05:53 microa lbumin /creat inine, mass ratio, urine 2023 [email or web address] [facility] (Centralized Electronic Ordering - All Locations), Patient Can Go To The Location Of Their Choice, 18:05:54 Hepati tis C IgG Ab, qual, serum [facility]), Patient Can Go To The Location Of Their Choice, 18:05:55 HBsAg (hepat itis B surfac e Ag), EIA, serum 2023 [email or web address] [facility] (Centralized Electronic Ordering - All Locations), Patient Can Go To The Location Of Their Choice, [id number] 4 18:05:57 HIV 1 + 2, meanin gful use set 2023 024 SRUTHI [facility] (Centralized Electronic Ordering - All Locations), Patient Can Go To The Location Of Their Choice, [address] 18:05:56 trepon isaias pallid um IgG + IgM Ab, QL, IA, serum 2023 024 SRTUHI [facility] (Centralized Electronic Ordering - All Locations), Patient Can Go To The Location Of Their Choice, [address] 18:05:56 CT + NG RNA, PCR, unspec ified specim en 2023 024 SRUTHI [facility] (Centralized Electronic Ordering - All Locations), Patient Can Go To The Location Of Their Choice, 18:05:54 hepati tis B core IgM Ab, qual, serum or plasma 2023 024 SRUTHI [facility] (Centralized Electronic Ordering - All Locations), Patient Can Go To The Location Of Their Choice, [address] 18:05:57 lipid panel, serum 2023 024 SRUTHI [facility], [address] [place], [address], 06:08:23 BMP, serum or plasma 2023 024 SRUTHI [facility], [address] [place], [address], 4 06:08:22 HbA1c (hemog lobin A1c), blood 2023 024 [email or web address] [facility], [address], [facility], [place], [address], 09:18:50 microa lbumin , urine 2023 024 [email or web address] [facility], [address], [place], [address], 4 10:57:07 BMP, serum or plasma 2023 024 [email or web address] [facility], [address], [address], [place], [address], 4 11:47:21 Referral psychi atrist referr al 2023 024 [email or web address] [facility], [address], [place], [address], 4 16:13:59 nutrit ionist /dieti joby referr al 2023 024 [email or web address] Not available 4 09:14:57 diabet ic ophtha lmolog y referr al 2023 024 [email or web address] [facility], [address], [place], [address], 4 09:53:23 nutrit ionist /dieti joby referr al 2023 024 Not available 4 11:05:50 Procedures None record ed. Surgeries None record ed. Imaging None record ed. Medication Orders buprop ion HCl SR 150 mg tablet ,12 hr sustai lesia-re lease 2023 024 [facility][id number], [address] [place], [address], 4 15:00:52 buspir one 10 mg tablet 2023 024 [id number], [address] [place], [address], 4 15:00:52 buspir one 10 mg tablet 2022 023 ramírez [facility]armacy #[id number], [address] [place], [address], 14:19:14 Patient Targets Encounter Date Encounter Id Patient Goals Patient Target Last Modified By Organization Details Last Modified Time 09/26/2023 [id number] Ongoing of Microalbumin/Cre atinine Ratio yearly Not [...] goal. pmadden Not available 09/26/2023 13:34:22 03/03/2024 [id number] Ongoing of Microalbumin/Cre atinine Ratio yearly Not [...] Sukhdev on Details Last Modified Time 06/26/2023 [id number] temporomandibula r disorder: care instructions pmadden Not [...] medication. pmadden Not available 06/26/2023 13:25:58 07/24/2023 [id number] Medications (OTC , herbal therapies, supplements) reviewed and reconciled with patient and or caregiver, including potential side effects, drug interactions, instructions, and the consequences of not taking medication. Reviewed potential barriers to medication adherence, such as side effects from medication or cost of medication. pmadden Not available 07/24/2023 13:04:14 09/26/2023 [id number] starting a weigh t loss plan: care [...] effects from medication or cost of medication. ramírez Not available 09/26/2023 13:01:44 03/03/2024 [id number] starting a weigh t loss plan: care [...] medication. pmadden Not available 03/03/2024 14:55:40 04/08/2024 [id number] Medications (OTC , herbal therapies, supplements) reviewed and reconciled with patient and or caregiver, including potential side effects, drug interactions, instructions, and the consequences of not taking medication. Reviewed potential barriers to medication adherence, such as side effects from medication or cost of medication. pmadden Not available 04/08/2024 15:44:37 Reason for Referral [facility]/dietitian Refer ral for Body mass index 30+ - obesity Referring Physician: Clary Morales, Internal Medicine, Encounter Date: 09/26/2023 Diabetic Ophthalmology Refer ral for Renal disorder due to type 2 diabetes mellitus Referring Physician: Clary Morales, Internal Medicine, Encounter Date: 09/26/2023 Director [facility]/dietitian Refer ral for Body mass index 40+ [...] [facility]) [address] [place], [address], 09/28/2023 06:08:22 09/26/19 24 09/27/2023 BASIC METAB OLIC PANEL (8) BUN 12 mg/dL 6-24 Not Available [facility] ([facility]) [address] [place], [address], 09/28/2023 06:08:22 09/26/1909/27/2023 BASIC METAB OLIC PANEL (8) creatinine 0.86 mg/dL 0.76-1 .27 Not Available [facility] ([facility]) [address] [place], [address], 09/28/2023 06:08:22 09/26/19 24 09/27/2023 BASIC METAB OLIC PANEL (8) eGFR 108 mL/mi n/1.7 3 >59 Not Available [facility] ([facility]) [address] [facility] [place], [address], 09/28/2023 06:08:22 09/26/19 24 09/27/2023 BASIC METAB OLIC PANEL (8) BUN/creatini ne ratio 14 9-20 Not Available [facility] ([facility]) [address] [facility] [place], [address], 09/28/2023 06:08:22 09/26/19 24 09/27/2023 BASIC METAB OLIC PANEL (8) sodium 135 mmol/ L 134-14 4 Not Available [facility] ([facility]) [address] [facility] [place], [address], 09/28/2023 06:08:22 09/26/19 24 09/27/2023 BASIC METAB OLIC PANEL (8) potassium 4.1 mmol/ L 3.5-5. 2 Not Available [facility] ([facility]) [address] [place], [address], 09/28/2023 06:08:22 09/26/19 24 09/27/2023 BASIC METAB OLIC PANEL (8) chloride 95 mmol/ L 96-106 below low normal Not Available [facility] ([facility]) [address] [facility] [place], [address], 09/28/2023 06:08:22 09/26/19 24 09/27/2023 BASIC METAB OLIC PANEL (8) carbon dioxide, total 23 mmol/ L 20-29 Not Available [facility] ([facility]) [address] [facility] [place], [address], 09/28/2023 06:08:22 09/26/19 24 09/27/2023 BASIC METAB OLIC PANEL (8) calcium 10.0 mg/dL 8.7-10 .2 Not Available [facility] ([facility]) [address] [facility] [place], [address], 09/28/2023 06:08:22 09/26/19 24 09/27/2023 LIPID PANEL cholesterol, total 138 mg/dL 100-19 9 Not Available [facility] ([facility]) [address] [facility] [place], [address], 09/28/2023 06:08:23 09/26/19 24 09/27/2023 LIPID PANEL triglyceride s 208 mg/dL 0-149 above high normal Not Available [facility] ([facility]) [address] [facility] [place], [address], 09/28/2023 06:08:23 09/26/19 24 09/27/2023 LIPID PANEL HDL cholesterol 46 mg/dL >39 Not Available [facility]) [address] [facility] [place], [address], 09/28/2023 06:08:23 09/26/19 24 09/27/2023 LIPID PANEL VLDL cholesterol gabino 34 mg/dL 5-40 Not Available [facility]) [address] [facility] [place], [address], 09/28/2023 06:08:23 09/26/19 24 09/27/2023 LIPID PANEL LDL chol calc ([facility]) 58 mg/dL 0-99 Not Available [facility]) [address] [place], [address], 09/28/2023 06:08:23 09/26/19 24 09/27/2023 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 METAB OLIC PANEL (14) glucose 98 mg/dL 70-99 normal Not Available [facility] ([facility]) [address] [place], [address], 03/04/2024 18:05:53 03/03/20 24 03/04/2024 COMP. METAB OLIC PANEL (14) BUN 14 mg/dL 6-24 normal Not Available [facility] ([facility]) [address] [facility] [place], [address], 03/04/2024 18:05:53 03/03/20 24 03/04/2024 COMP. METAB OLIC PANEL (14) creatinine 0.64 mg/dL 0.76-1 .27 below low normal Not Available [facility] ([facility]) [address] [facility] [place], [address], 03/04/2024 18:05:53 03/03/20 24 03/04/2024 COMP. METAB OLIC PANEL (14) eGFR 118 mL/mi n/1.7 3 >59 normal Not Available [facility] ([facility]) [address] [place], [address], 03/04/2024 18:05:53 03/03/20 24 03/04/2024 COMP. METAB OLIC PANEL (14) BUN/creatini ne ratio 22 9-20 above high normal Not Available [facility] ([facility]) [address] [place], [address], 03/04/2024 18:05:53 03/03/20 24 03/04/2024 COMP. METAB OLIC PANEL (14) sodium 140 mmol/ L 134-14 4 normal Not Available [facility] ([facility]) [address] [place], [address], 03/04/2024 18:05:53 03/03/20 24 03/04/2024 COMP. METAB OLIC PANEL (14) potassium 4.5 mmol/ L 3.5-5. 2 normal Not Available [facility] ([facility]) [address] [place], [address], 03/04/2024 18:05:53 03/03/20 24 03/04/2024 COMP. METAB OLIC PANEL (14) chloride 101 mmol/ L 96-106 normal Not Available [facility] ([facility]) [address] [facility] [place], [address], 03/04/2024 18:05:53 03/03/20 24 03/04/2024 COMP. METAB OLIC PANEL (14) carbon dioxide, total 24 mmol/ L 20-29 normal Not Available [facility] ([facility]) [address] [facility] [place], [address], 03/04/2024 18:05:53 03/03/20 24 03/04/2024 COMP. METAB OLIC PANEL (14) calcium 10.3 mg/dL 8.7-10 .2 above high normal Not Available [facility] ([facility]) [address] [facility] [place], [address], 03/04/2024 18:05:53 03/03/20 24 03/04/2024 COMP. METAB OLIC PANEL (14) protein, total 7.4 g/dL 6.0-8. 5 normal Not Available [facility] ([facility]) [address] [place], [address], 03/04/2024 18:05:53 03/03/20 24 03/04/2024 COMP. METAB OLIC PANEL (14) albumin 5.0 g/dL 4.1-5. 1 normal Not Available [facility] ([facility]) [address] [place], [address], 03/04/2024 18:05:53 03/03/20 24 03/04/2024 COMP. METAB OLIC PANEL (14) globulin, total 2.4 g/dL 1.5-4. 5 Not Available [facility] ([facility]) [address] [facility] [place], [address], 03/04/2024 18:05:53 03/03/20 24 03/04/2024 COMP. METAB OLIC PANEL (14) bilirubin, total 0.4 mg/dL 0.0-1. 2 normal Not Available [facility] ([facility]) [address] [place], [address], 03/04/2024 18:05:53 03/03/20 24 03/04/2024 COMP. METAB OLIC PANEL (14) alkaline phosphatase 74 IU/L 44-121 normal Not Available [facility]) [address] [place], [address], 03/04/2024 18:05:53 03/03/20 24 03/04/2024 COMP. METAB OLIC PANEL (14) AST (SGOT) 22 IU/L 0-40 normal Not Available [facility] ([facility]) [address] [facility] [place], [address], 03/04/2024 18:05:53 03/03/20 24 03/04/2024 COMP. METAB OLIC PANEL (14) ALT (SGPT) 32 IU/L 0-44 normal Not Available [facility] ([facility]) [address] [place], [address], 03/04/2024 18:05:53 03/03/20 24 03/04/2024 ALBUM IN/CR EAT RATIO , RANDO M UR creatinine, urine 88.5 mg/dL not estab. normal Not Available [facility] ([facility]) [address] [place], [address], 03/04/2024 18:05:54 03/03/20 24 03/04/2024 ALBUM IN/CR EAT RATIO , RANDO M UR albumin, urine 4.8 ug/mL not estab. Not Available [facility] ([facility]) [address] [place], [address], 03/04/2024 18:05:54 03/03/20 24 03/04/2024 ALBUM IN/CR EAT RATIO , RANDO M UR alb/creat ratio 5 mg/g_ creat 0-29 Dawna l: 0 - 29 Moder ately incre ased: 30 - 300 Sever eddie incre ased: >300 Not Available [facility] ([facility]) [address] [facility], [place], [address], 03/04/2024 18:05:54 03/03/20 24 03/04/2024 CHLAM YDIA/ GC AMPLI FICAT ION chlamydia trachomatis, TAVO NEGATI VE negati ve Not Available [facility] ([facility]) [address] [place], [address], 03/04/2024 18:05:54 03/03/20 24 03/04/2024 CHLAM YDIA/ GC AMPLI FICAT ION neisseria gonorrhoeae, TAVO NEGATI VE negati ve Not Available [facility] ([facility]) [address] [place], [address], 03/04/2024 18:05:54 03/03/20 24 03/04/2024 HCV ANTIB YING RFX TO QUANT PCR HCV Ab NON REACTI VE non reacti ve Not Available [facility] ([facility]) [address] [place], [address], 03/04/2024 18:05:55 03/03/20 24 03/04/2024 HCV ANTIB [...] [facility] [address] [place], [address], 03/04/2024 18:05:55 03/03/20 24 03/04/2024 HEMOG LOBIN A1C hemoglobin A1C 6.2 % 4.8-5. 6 above high normal Predi abete s: 5.7 - 6.4 Diabe lizzy: >6.4 Glyce prudencio contr ol for adult s with diabe lizzy: <7.0 Not Available [facility] ([facility]) [address] [place], [address], 03/04/2024 18:05:55 03/03/20 24 03/04/2024 T PALLI DUM SCREE REINA CASCA DE T pallidum antibodies NON REACTI VE non reacti ve Not Available [facility] ([facility]) [address] [facility], [place], [address], 03/04/2024 18:05:56 03/03/2003/04/2024 HIV AB/P2 4 AG WITH REFLE X HIV Ab/P24 Ag screen NON REACTI VE non reacti ve HIV-1 /HIV- 2 antib odies and HIV-1 p24 antig en were NOT detec sierra. There is no labor atory evide nce of HIV infec tion. HIV Negat snehal Not Available [facility] ([facility]) [address] [facility], [place], [address], 03/04/2024 18:05:56 03/03/2003/04/2024 HBSAG SCREE N HBsAg screen NEGATI VE negati ve Not Available [facility] ([facility]) [address] [place], [address], 03/04/2024 18:05:57 03/03/2003/04/2024 HEP B CORE AB, IGM hep B core Ab, IgM NEGATI VE negati ve Not Available [facility] ([facility]) [address] [place], [address], 03/04/2024 18:05:57 Result Notes None recorded. Problems Name Problem SNOMED Code Status Onset Date Resolution Date Notes Provider Name and Address Organization Details Recorded Time Depressi ve disorder 94422200 Completed 03/05/2022 Clary Morales PA-C [address] [facility] [address], [place], [address] , [facility] 21:05:23 Anxiety disorder 171875748 Active 2011 Jael wei, [facility] 7 14:34:39 Cellulit is and abscess of buttock 532872180 Completed 201102/03/2014 RECORDED 01/26/20 12 9:03AM BY MAGNUS SIDDIQUI MA, ANNOTATI ON/ADDEN DUM Not Available [facility] 4 15:13:47 Chest pain 38765652 Completed 201102/03/2014 RECORDED 01/26/20 12 9:03AM BY MAGNUS SIDDIQUI MA, ANNOTATI ON/ADDEN DUM Not Available [facility] 4 15:13:47 Recurren t major depressi ve episodes , in full remissio n Completed 201103/05/2022 Clary Morales PA-C [address] [facility], [place], [address] , [facility] 2 21:05:57 Exposure to organism Completed 201102/03/2014 RECORDED 01/26/20 12 9:03AM BY MAGNUS SIDDIQUI MA, ANNOTATI ON/ADDEN DUM Not Available [facility] 4 15:13:47 Malaise and fatigue 503082441 Completed 201102/03/2014 IMPRESSI ON: LONG HX OF [...] ACUÑA I, ANNOTATI ON/ADDEN DUM Not Available [facility] 4 15:13:47 Influenz a vaccine needed [id number] 06 Completed 201102/03/2014 RECORDED 03/11/20 12 8:38AM BY SAMARA ACUÑA I, OFFICE VISIT Not Available [facility] 4 15:13:47 Noninfec tious gastroen teritis 63246861 Completed 201102/03/2014 RECORDED 01/26/20 12 9:03AM BY MAGNUS SIDDIQUI MA, ANNOTATI ON/ADDEN DUM Not Available [facility] 4 15:13:47 Internal hordeolu m 845678788 Completed 201102/03/2014 RECORDED 01/26/20 12 9:03AM BY MAGNUS SIDDIQUI MA, ANNOTATI ON/ADDEN DUM Not Available [facility] 4 15:13:47 Pure hypercho lesterol emia 995131097 Completed 201102/03/2014 RECORDED 01/26/20 12 9:03AM BY MAGNUS SIDDIQUI MA, ANNOTATI ON/ADDEN DUM Not Available [facility] 4 15:13:47 Insomnia 488416256 Active 2011 Jael wei [facility] 7 14:34:35 Administ ration of bacteria l and viral vaccine Completed 200802/03/2014 RECORDED 12/31/19 09 2:17PM BY TONYA ADAMES, OFFICE VISIT Not Available [facility] 4 15:13:47 High risk sexual behavior 386207395 Completed 201102/03/2014 RECORDED 01/26/20 12 9:03AM BY MAGNUS SIDDIQUI MA, ANNOTATI ON/ADDEN DUM Not Available [facility] 4 15:13:47 Adult health examinat ion Completed 201102/03/2014 RECORDED 01/26/20 12 9:03AM BY MAGNUS SIDDIQUI MA, ANNOTATI ON/ADDEN DUM Not Available [facility] 4 15:13:47 Drug abuse 52190816 Active 2011 Jael wei [facility] 7 14:34:41 Tobacco dependen ce syndrome 03569587 Active [address] [facility] 7 14:34:51 Cellulit is and abscess of buttock 757307286 Completed 201102/23/2014 RECORDED 01/26/20 12 9:03AM BY MAGNUS SIDDIQUI MA, ANNOTATI ON/ADDEN DUM Not Available [facility] 4 06:00:27 Chest pain 31141227 Completed 201102/23/2014 RECORDED 01/26/20 12 9:03AM BY MAGNUS SIDDIQUI MA, ANNOTATI ON/ADDEN DUM Not Available [facility] 4 06:00:27 Exposure to organism Completed 201102/23/2014 RECORDED 01/26/20 12 9:03AM BY MAGNUS SIDDIQUI MA, GONZALOATI ON/ADDEN DUM Not Available [facility] 4 06:00:27 Malaise and fatigue 288270856 Completed 201102/23/2014 IMPRESSI ON: LONG HX OF [...] THERAPY. ; RECORDED 04/02/20 12 7:43AM BY STEPHY THOMASON ON/ADDEN DUM Not Available [facility] 4 06:00:27 Influenz a vaccine needed 70348950154 06 Completed 201102/23/2014 RECORDED 03/11/20 12 8:38AM BY SAMARA ACUÑA I, OFFICE VISIT Not Available [facility] 4 06:00:27 Noninfec tious gastroen teritis 88184326 Completed 201102/23/2014 RECORDED 01/26/20 12 9:03AM BY MAGNUS SIDDIQUI MA, ANNOTATI ON/ADDEN DUM Not Available [facility] 4 06:00:27 Internal hordeolu m 095936315 Completed 201102/23/2014 RECORDED 01/26/20 12 9:03AM BY MAGNUS SIDDIQUI MA, ANNOTATI ON/ADDEN DUM Not Available [facility] 4 06:00:27 Pure hypercho lesterol emia 058718154 Completed 201102/23/2014 RECORDED 01/26/20 12 9:03AM BY MAGNUS SIDDIQUI MA, ANNOTATI ON/ADDEN DUM Not Available [facility] 4 06:00:27 Administ ration of bacteria l and viral vaccine Completed 200802/23/2014 RECORDED 12/31/19 09 2:17PM BY TONYA ADAMES, OFFICE VISIT Not Available [facility] 4 06:00:27 High risk sexual behavior 124454680 Completed 201102/23/2014 RECORDED 01/26/20 12 9:03AM BY MAGNUS SIDDIQUI MA, ANNOTATI ON/ADDEN DUM Not Available [facility] 4 06:00:27 Adult health examinat ion Completed 201102/23/2014 RECORDED 01/26/20 12 9:03AM BY MAGNUS SIDDIQUI MA, ANNOTATI ON/ADDEN DUM Not Available [facility] 4 06:00:27 Uncontro lled type 2 diabetes mellitus 577605239 Completed 201602/22/2021 Clary Morales PA-C [address] [facility], [place], [address] , [facility] 1 09:53:48 Morbid obesity 079670919 Active 2018 Francesca wei, [facility] 9 12:00:00 Mixed hyperlip idemia 980928779 Active 2019 Clary Morales PA-C [address] [facility], [place], [address] , [facility] 0 09:34:08 Chronic kidney disease stage 1 474600519 Active 2019 Clary Morales PA-C [address] [facility], [place], [address] , [facility] 0 09:31:45 Snoring 30715665 Completed 201901/26/2021 Clary Morales PA-C [address] [facility], [place], [address] , [facility] 1 09:10:30 Apnea 2294778 Active 2020 Clary Morales PA-C [address] [facility], [place], [address] , [facility] 1 09:50:11 Hyperten sive renal disease 69668095 [facility] 13:20:47 Chronic kidney disease due to type 2 diabetes mellitus 06394934291 8 Completed 202003/01/2022 Clary Morales PA-C [address] [facility], [place], [address] , [facility] 2 13:17:09 Renal disorder due to type 2 diabetes mellitus 782723387 Active 2020 Clary Morales PA-C [address] [facility], [place], [address] , [facility] 1 09:56:16 Hematoch ezia 760703020 Active 2020 Clary Morales PA-C [address] [address], [place], [address] , [facility] 1 09:58:18 Gastroes ophageal reflux disease 548586390 Active 2021 Clary Morales PA-C [address] [address], [place], [address] , [facility] 2 15:09:48 Onychomy cosis of toenails 913982257 Active 2021 Clary Morales PA-C [address] [address], [place], [address] , [facility] 2 13:41:30 Major depressi ve disorder 964381362 Active 2021 Clary Morales PA-C [address] [facility][1] [address], [place], [address] , [facility] 21:02:30 Panic disorder with agorapho margot 64971347 Active 2021 Clary Morales PA-C [address] [facility][1] [address], [place], [address] , [facility] 21:03:24 Hemorrho ids 69277156 Active 2022 Clary Morales PA-C [address] [facility][[address]] [address], [place], [address] , [facility] 15:33:28 Itching of lesion of skin 267649890 Active 2022 Clary Morales PA-C [address] [address], [place], [address] , [facility] 10:35:49 Temporom andibula r joint disorder 17033402 Active 2022 Clary Morales PA-C [address] [address], [place], [address] , [facility] 13:25:07 Obstruct snehal sleep apnea syndrome 70772482 Active 2023 Clary Morales PA-C [address] [address], [place], [address] , [facility] 12:45:14 Problem Notes None recorded. Procedures Surgical History Date Name Laterality Status Provider Name and Address Organization Details Recorded Time 09/25 Diabetic Foot Exam (Monofilament) completed Clary Morales PA-C [address] [address], [place], [address] , [facility] 13:31:37 10/12 /2021 esophagogastroduodenoscopy completed Bryce Todd [facility] 2 14:06:17 04/26 Colonoscopy completed Clary Morales PA-C [address], [place], [address] , [facility] 13:21:09 01/26 Diabetic Foot Exam (Monofilament) completed Malorie Mojica MA [facility] 1 08:57:24 05/27 Diabetic Foot Exam (Monofilament) cancelled Guillermina Howard MA [facility] 0 09:46:25 12/05 Diabetic Foot Exam (Monofilament) completed Deepthi Minaya [facility] 9 15:04:01 Imaging Results None recorded. Procedure Notes None recorded. Medical Equipment None Reported. Allergies Allergen ID Allergen Name Allergen Category Reaction Reaction Severity Criticality Documentation Date Start Date Code Code System Note Provider Name and Address Organization Details Recorded Time 14449 Celexa medicatio n Not available Not available Not available 01/27/20142011 67322 8 RxNorm Jael wei [facility] 7 14:42:34 65156 amlodipin e medicatio n chest pain other Not available Not available Not available 12/05/2018 92410 RxNorm diffi culty sleep ing CM Bansal [facility] 2 13:05:55 35064 citalopra m medicatio n Not available Not available Not available 04/22/2020 2556 RxNorm Johnny Evelio-CM Engle [facility] 0 09:40:54 76991 Trulicity medicatio n other moderate low 02/13/2023 80497 96 RxNorm bloat ing/c onsti patio n Clary Morales PA-C [address], [place], [address], [facility] 10:03:50 Medications Name Sig Start Date [...] SR 150 mg tablet,12 hr sustained -release TAKE 1 TABLET BY MOUTH TWICE A DAY 2024 active Not Available Not Available Not Avai [...] 12 11:36AM BY ELIO HUNTER MD, ANNOTATI ON/MARQUES DUM; Not Available Not Available Not Available [...] 12 11:34AM BY ELIO HUNTER MD, ANNOTATI ON/MARQUES MEDEL; Not Available Not Available Not Available lorazepam 0.5 mg tablet 2 TIMES PER DAY PRN 02/08 completed RECORDED 02/12/20 12 4:20PM BY AUBRIE PEPPER, MEDICATI ON AUTO-JENNIFER CTIVATIO N; Not Available [...] TAKE 1 TABLET BY MOUTH EVERY DAY 2024 active Not Available Not Available Not Avai lable Prilosec OTC 20 mg tablet,de layed release [...] Not Avai lable FreeStyle Johnna 14 Day [place] Take by miscell.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 .9 Referral for counseling with [facility] / ELAINE Edwards. Please provide patient with contact info to schedule their appointmen clare Claudio# email: [email or web address] Chronic ki dney disease stage 1 223906648 N18.1 Renal diso rder due to type 2 diabetes mellitus 009121115 E11.22 N18.1 better control of sugars lately - A1c stable at 6.2 despite ~ 40 lbs of wt gain - cont metformin as dir will get podiatry evmarina and [facility] [id number] Francesca Maradiaga Telehealt h [address] 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 x ~ 6 months, getting progressiv eddie worse - has tried home remedies, aloe - no sig help - rec trial of rogaine while awaiting derm divya Renal diso rder due to type 2 diabetes mellitus 800806770 E11.22 N18.1 better control of sugars lately - A1c stable at 6.2 despite ~ 40 lbs of wt gain - cont metformin as dir will get podiatry divya and eye md [facility] 2.22 - no labs/ov in several months - will check labs, and discuss further at next ov Gastroesop hageal reflux disease 661463433 K21.9 cont ppi as dir by gi - apparently had egd/colon - no records to review - will attempt to get Hematochezia 757071560 K 62.5 see above - likely has occ hem bleed - no help c otc agents - will send in steroid cream - if no better then consider colorectal eval Apnea 4552356 R06.81 rev recent note - combinatio n of obstructiv e and central - feeling much better as per pt - cont cpap, f/u c sleep med Exposure t o sexually transmissible disorder 386570428 Z20.2 pt requested sti testing Chronic ki dney disease stage 1 169749133 N18.1 Hypertensi ve renal disease 29230318 I12.9 bp stable as per pt- cont as dir [id number] Clary Morales PA-C Main Office [address] [facility] [address] [place] [address] 03/01/2022 12:51:59 03/01/2022 14:09:28 Adult health examination 763366283 Z00.00 Body mass index 30+ - obesity 846552786 E66.01 Z68.39 Pt has lost add'l wt - diet > exercise, cont hawthorn extract Anxiety disorder 9174263 06 F41.9 severe on rafa - ? [...] agoraphobi a - encouraged pt to call [facility] Apnea 5006347 R06.81 combinatio n of obstructiv e and central - feeling much better as per pt - cont cpap, f/u c sleep med Chronic ki dney disease stage 1 785655731 N18.1 Renal diso rder due to type 2 diabetes mellitus 548126815 E11.22 N18.1 better control of sugars lately - A1c stable at 6.2 despite ~ 40 lbs of wt gain - cont metformin as dir will get podiatry eval and eye md [facility] 2.22 - no labs/ov in several months - will check labs, and discuss further at next ov 8.22 - A1c down to 6.0, pending eye in 2 months Mixed hyperlipidemia 267 603897 E78.2 rec low carb diet to help lower your trigs, cont statin as dir Major depr essive disorder 759428081 F32.0 just recently sent updated rx for wellbutrin - hasn't started yet - urged him to do so (qd initially then increase to bid as gordon) encouraged pt to call [facility] for next wk Gastroesop hageal reflux disease 575516633 K21.9 cont ppi as dir by gi Hypertensi ve renal disease 11093170 I12.9 bp elevated - rec double up combo pill Onychomyco sis of toenails 510014622 B35.1 pt requests pod eval External hemorrhoids 239 06172 K64.4 ext hem bleed most days - no sig help c hem cream - will try supp & get colorectal sx eval 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 has agoraphobi a - encouraged pt to call [facility] [id number] Clary Morales PA-C Main Office [address] [facility] 207 [place] [address] 07/03/2022 12:56:44 07/03/2022 13:47:22 Renal disorder due to type 2 diabetes mellitus 027923882 E11.22 N18.1 better control of sugars lately [...] c wt loss/sugar as directed Anxiety disorder 0304989 06 F41.9 severe on rafa - ? [...] agoraphobi a - encouraged pt to call [facility] 12.22 - stable, pt requests refill of prn benzo, to begin therapy next month Palpitations 49407360 R0 0.2 ? d/t SE of truvy for wt loss - check labs, if worse in future then consider BB Chronic ki dney disease stage 1 745865046 N18.1 Hypertensi ve renal disease 79358418 I12.9 bp stable, cont meds as dir [id number] Clary Morales PA-C Main Office [address] [facility] [address] [place] [address] 12/28/2022 14:17:14 12/28/2022 15:43:19 Anxiety disorder 289694618 F41.9 severe on rafa - ? agoraphobi [...] agoraphobi a - encouraged pt to call [facility] 12.22 - stable, pt requests refill of prn benzo, to begin therapy next month 6.23- Pt did not go to therapy due to insurance. RAFA score 21. see below, will add buspar & encouraged pt to see therapist Major depr essive disorder 385626764 F32.0 just recently sent updated rx for wellbutrin - hasn't started yet - urged him to do so (qd initially then increase to bid as gordon) 6.23- Taking Wellbutrin with no improvemen t. PHQ 9 score 22. will add buspar Renal diso rder due to type 2 diabetes mellitus 431100203 E11.22 N18.1 better control of sugars lately [...] by his ins, may need PA Hemorrhoids 15153472 K64 .9 see below Hematochezia 297060655 K 62.5 see above - likely has occ hem bleed - no help c otc agents - will send in steroid cream - if no better then consider colorectal eval 6.23 - seen by colorectal sx - no surgery offered ==== last colon 10.21 Body mass index 40+ - severely obese 981914978 E66.01 Z68.41 see dm above Chronic ki dney disease stage 1 620915503 N18.1 [id number] Clary SCHULER-C Telehealt h [address] [facility][1] 207 [place] [address] 02/13/2023 08:31:01 02/13/2023 10:24:44 Major depressive disorder 284039415 F32.2 just recently sent updated rx for wellbutrin - hasn't started yet - urged him to do so (qd initially then increase to bid as gordon) 6.23- Taking Wellbutrin with no improvemen t. PHQ 9 score 22. will add buspar 8.1.23 - see above Panic diso rder with agoraphobia 45838627 F40.01 see above - - ? has agoraphobi a - encouraged pt to call [facility] 8.1.23 - see above Renal diso rder due to type 2 diabetes mellitus 283595987 E11.22 N18.1 better control of sugars lately [...] need PA 8.1.23 - no like SE lester so stated he will stop Anxiety disorder [...] agoraphobi a - encouraged pt to call [facility] 12.22 - stable, pt requests refill of [...] uptitrate dose. also, encouraged pt to call [facility] to check on rest of aptmt building for mice (the primary source of his stress lately), and advised pt to see therapist Mixed hyperlipidemia 267 711950 E78.2 rec low carb diet to help lower your trigs, cont statin as dir Exposure t o sexually transmissible disorder 127506544 Z20.2 pt requested sti testing [id number] Clary Morales PA-C Main Office [address] [facility] [address] [facility] [place] [address] 04/30/2023 10:38:47 04/30/2023 13:52:37 Herpes labialis 3557305 B00.1 Better now c herpecin L (symptomat ic relief) - but not fully resolved - trial c abreva topically, will give valtrex for future PRN [id number] Francesca Maradiaga Main Office [address] [facility] 207 [facility] [place] [address] 05/23/2023 13:59:28 05/23/2023 15:09:08 Adult health examination 100881415 Z00.00 Anxiety disorder F41.9 severe on rafa [...] agoraphobi a - encouraged pt to call [facility] 12.22 - stable, pt requests refill of [...] uptitrate dose. also, encouraged pt to call [facility] to check on rest of aptmt building [...] of prn benzoencou raged pt to call [address] [place] [address].o rg Influenza vaccination declined 340196343 Z28.21 Herpes labialis 6287543 B00.1 Better now c herpecin L (symptomat ic relief) - but not fully resolved - trial c abreva topically, will give valtrex for future PRN 11.23 - better p used valtrexapp arently ID eval was turned awayencour aged pt to go for outstandin g labsconsid er ID eval if + Major depr essive disorder 121748706 F32.2 just recently sent updated rx for wellbutrin - hasn't started yet - urged him to do so (qd initially then increase to bid as gordon)6.23- Taking Wellbutrin with no improvemen t. PHQ 9 score 22. will add buspar 11.23 - see above Renal diso rder due to type 2 diabetes mellitus 419397963 E11.22 better control of sugars lately - [...] covered by his ins, may need PA 8.. - no like SE trulicity so stated he will stop Chronic ki dney disease stage 1 229605069 N18.1 Hypertensi ve renal disease 94531690 I12.9 bp stable, cont meds as dir Mixed hyperlipidemia 267 379619 E78.2 rec low carb diet to help lower your trigs, cont statin as dir Body mass index 30+ - obesity 391688176 E66.01 Z68.39 Pt has lost add'l wt - diet > exercise, cont hawthorn extract 11.23 - rec increase sleep, exercise, better diet (low carb) [id number] Clary Morales PA-C Telehealt h [address] [facility][1] 207 [place] [address] 06/26/2023 10:12:56 06/26/2023 13:30:39 Anxiety disorder 221635694 F41.9 severe on rafa - ? agoraphobi [...] agoraphobi a - encouraged pt to call [facility] 12.22 - stable, pt requests refill of prn benzo, to begin therapy next month 6.23- Pt did not go to therapy due to insurance. RAFA score 21. see below, will add buspar & encouraged pt to see therapist 8.. - has been able to go outside more often lately, so appears buspar has helped a little - rec slowly uptitrate dose. also, encouraged pt to call [facility] to check on rest of aptde building for mice (the primary source of [...] nitric oxide - helping to decrease smoking/dr zhaoing, more energy = so he defers increasing his bupropion and buspar at this timept requests refill of prn benzoencou raged pt to call [address] [place] [address].o rg 12.23 - see above - pt states has had difficulty getting a therapist from [address] [place] [address].o rg ---- gave add'l resources on portal to help him find a therapist (as well as read these phone #s to him from our mental health handout)me anwhile, rec increase buspar 10mg to tidpt frederick ridley 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 PHQ 9 score 22. will add buspar 11.23 - see above Temporoman dibular joint disorder 26618547 M26.609 advised pt to f/u c his dentist - may need mouthguard or [facility] of prn ice/heat [id number] Clary Morales PA-C Telehealt h [address] [facility] [address] [place] [address] 07/24/2023 10:31:25 07/24/2023 13:17:49 Anxiety disorder 127740899 F41.9 severe on rafa - ? agoraphobi [...] agoraphobi a - encouraged pt to call [facility] 12.22 - stable, pt requests refill of [...] uptitrate dose. 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 PHQ 9 score 22. will add buspar 1.24 - see above Viral uppe r respiratory tract infection 456403159 J06.9 x 4-5 days, better past 1-2 days as per pt - cont prn supportive care Renal diso rder due to type 2 diabetes mellitus 601913987 E11.22 better control of sugars lately - [...] need PA 8.1.23 - no like SE tayler so stated he will stop 1.24 - check labs ac next ov [id number] Francesca Maradiaga Main Office [address] [facility] [address] [facility] [place] [address] 09/26/2023 12:51:31 09/26/2023 13:39:19 Renal disorder due to type 2 diabetes mellitus 247773843 E11.22 better control of sugars lately - [...] EC Body mass index 30+ - obesity 722486156 E66.01 Z68.37 Pt has lost add'l wt - diet > exercise, cont hawthorn extract 11.23 - rec increase sleep, exercise, better diet (low carb) 3.24 - has lost > 15 lbs recently - cont diet/suppl ements, encouraged increased exercise Fatigue 31899275 R53.83 Z00.00 Hyperlipidemia 95467915 E78.5 Z00.00 FASTING if trigs remain elevated then consider krill oil in addition to statin Chronic ki dney disease stage 1 446792753 N18.1 [id number] Clary Morales PA-C Main Office [address] [facility] [address] [place] [address] 03/03/2024 14:03:45 03/03/2024 15:06:43 Anxiety disorder 045855480 F41.9 severe on rafa - ? agoraphobi [...] agoraphobi a - encouraged pt to call [place] [facility] 12.22 - stable, pt requests refill of [...] uptitrate dose. 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 - congratula sierra him on setting this up and encouraged him to go do the best he can on it - wished him well 1.24 - he didn't take pharmacy laboratory technician test last month, has pending apptmt c [place] rehab worker tomorrow to help c job training/c melecio called a few therapy places, including [facility] [place] awaiting call backon a waiting list [...] efno see therapist Major depr essive disorder 260503378 F32.2 just recently sent updated rx for wellbutrin - hasn't started yet - urged him to do so (qd initially then increase to bid as gordon)6.23- Taking Wellbutrin with no improvemen t. PHQ 9 score 22. will add buspar 1.24 - see above 8.24 - will refill Chronic ki dney disease stage 1 048748166 N18.1 Hypertensi ve renal disease 98094143 I12.9 bp stable, cont meds as dir Renal diso rder due to type 2 diabetes mellitus 996848692 E11.22 better control of sugars lately - [...] Body mass index 40+ - severely obese 082201180 E66.01 Z68.41 see dm abovegaine d wt recently, but motivated to ex more since is feeling better as of late Venereal d isease screening 912728189 Z11.3 pt requested testing [id number] Clary Morales PA-C Telehealt h [address] [facility][1] [address] [place] [address] 04/08/2024 14:23:04 04/08/2024 16:13:59 Anxiety disorder 537851146 F41.9 severe on rafa - ? agoraphobi [...] agoraphobi a - encouraged pt to call [facility] 12.22 - stable, pt requests refill of [...] uptitrate dose. 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 - congratula sierra him on setting this up and encouraged him to go do the best he can on it - wished him well 1.24 - he didn't take pharmacy laboratory technician test last month, has pending apptmt c [place] rehab worker tomorrow to help c job training/c melecio called a few therapy places, including [facility] [place] - awaiting call backon a waiting list [...] states he is looking for a therapist ([facility] evaluated him, gave him a few options for a therapist) , see below Major depr essive disorder 441073006 F32.2 just recently sent updated rx for [...] rder due to type 2 diabetes mellitus 291729022 E11.22 better control of sugars lately - [...] - cont meds as dir Abnormal feces 384986319 R19.5 Vitamin D deficiency 347 53692 E55.9 Health Concerns Section Related Observation LastModified by Organization Detai ls LastModified Time None Recorded Concern Status LastModified by Organization Details LastModified Time None Recorded Advance Directives Directive N: Payers Encounter Date Sequence Insurance Name Policy Number Policy Jeffries Covered Member ID Jeffries Member ID Guarantor Name 06/26/2023 2 [place] [facility] [place] [id number] [place] 06/26/2023 1 [employer] (MEDICARE REPLACEMENT/A DVANTAGE - HMO) [facility] Ho Telles [id number] Ho Telles 07/24/2023 2 [place] [facility] Ho Telles [id number] Ho [place]elles 07/24/2023 1 [facility] (MEDICARE REPLACEMENT/A DVANTAGE - HMO) [facility] Ho Telles [id number] Ho [place]elles 09/26/2023 2 [place] [facility] Ho Telles [id number] Ho Telles 09/26/2023 1 [employer] (MEDICARE REPLACEMENT/A DVANTAGE - HMO) [facility] Ho Telles [id number] Ho [place] 03/03/2024 2 [place] [facility] Ho Telles [id number] Ho [place]elles 03/03/2024 1 [facility] (MEDICARE REPLACEMENT/A DVANTAGE - HMO) [facility] Ho Telles [id number] Ho [place] 04/08/2024 2 [place] [facility] Ho Telles [id number] Ho [place] 04/08/2024 1 [facility] (MEDICARE REPLACEMENT/A DVANTAGE - HMO) [facility] Ho Telles [id number] Ho [place] Notes Date Note Type Note Provider Name and Address Organization Details Recorded Time 3 text/html Anxiety/DepressionReport ed bypatient.Quality:mood worse;increased anxiety Severity:denies suicidal ideations Context:major life stressors Associated Symptoms:denies homicidal ideations TH visit for 1 month f/u p awvreviewed labs c pt - normalunfortunately he has not connected c a therapist - states he tried a few times from [employer] [facility], then gave up on thishis anxiety persists, but admits he is trying to get out of his apartment on occasionis considering taking an entry test for pharmacy laboratory technician tomorrowrarely uses 1/2 benzo prnno SI Clary Morales PA-C [address], [address], [facility] 06/26/2023 13:27:11 4 text/html TH for 1 [...] use tyl or ibu Clary Morales PA-C [address] [address], [place], [address], [facility] 07/24/2023 13:14:37 4 text/html Diabetes F/UReported bypatient.Context:checki ng feet regularly;not seeing eye doctor yearly;not taking aspirin daily Associated Symptoms:no dizziness; no increased thirst; no increased urination; no blurred vision; no numbness of feet;weight loss ( lbs) Francesca wei, [facility] 10/02/2023 14:03:13 4 text/html Anxiety/DepressionReport ed bypatient.Quality:sympto ms improved Severity:denies suicidal ideations Context:major life stressors Associated Symptoms:denies homicidal ideations here for f/u visitfeeling better in general but still scored mod severe on rafa/phqno see therapisthas been looking for a job Clary Morales PA-C [address] [facility], [place], [address], [facility] [place] 03/06/2024 13:07:04 4 text/html Anxiety/DepressionReport ed bypatient.Quality:sympto ms improved Severity:denies suicidal ideations Context:major life stressors Associated Symptoms:denies homicidal ideations here for f/u visitfeeling better in general but still scored mod severe on rafa/phqno see therapisthas been looking for a job 9.24 - [facility] sent someone to his home for an eval - offered a few choices for therapists to see, pending choose one Clary Morales PA-C [address] [facility], [place], [address], [facility] [place] 04/08/2024 15:54:28
--- OUTSIDE RECORDS SUMMARY | 2024-09-09 17:55 | XMS_ITS | Clinical Summary ---
Author Organization [facility] it Address [address] [place] [address] Care Team Providers Care Cook Starch Name Role Phone Warren Lacy Primary Care Provider Allergies Active Allergy Reactions Criticality Noted Date Comments Amlodipine Other 05/11/2022 Citalopram 05/11/2022 Medications atorvastatin (LIPITOR) 40 mg tablet Take 1 tablet (40 mg total) by mouth 1 (one) time each day. Active buPROPion SR (WELLBUTRIN SR) 150 mg 12 hr tablet Take 1 tablet (150 mg total) by mouth 2 (two) times a day. Active cyclobenzaprine (FLEXERIL) 5 mg tablet Take 1 tablet (5 mg total) by mouth 3 (three) times a day if needed. Active HAWTHORN EXTRACT ORAL Take by mouth. Activ e hydrocortisone (ANUSOL-HC) 25 mg suppository Insert 1 suppository (25 mg total) into the rectum 2 (two) times a day. Active ketoconazole (NIZORAL) 2 % cream Apply topically 2 (two) times a day. to the affected areas of the bottom and top of feet Active lisinopriL (PRINIVIL,ZESTRI L) 20 mg tablet Take 1 tablet (20 mg total) by mouth 1 (one) time each day. Active LORazepam (ATIVAN) 1 mg tablet Take 1 tablet (1 mg total) by mouth every 6 (six) hours if needed. Max Daily Amount: 4 mg Active metFORMIN XR (GLUCOPHAGE-XR) 750 mg 24 hr tablet Take 1 tablet (750 mg total) by mouth 1 (one) time each day with breakfast. Active omeprazole (PRILOSEC) 20 mg tablet,delayed release (DR/EC) Take by mouth. Active Active Problems Problem Noted Date Diagnosed Date Anxiety 05/11/2022 Major depressive disorder 05/11/2022 Mixed hyperlipidemia 05/11/2022 Obesity 05/11/2022 Onychomycosis 05/11/2022 Overview (08/08/2024): toe Renal disorder 05/11/2022 Medical History Medical History Date Comments Renal disorder 05/11/2022 DX:Renal disorde r Mixed hyperlipidemia 05/11/2022 DX:Mixed hy perlipidemia Obesity 05/11/2022 DX:Obesity Major depressive disorder 05/11/2022 DX:Jesse or depressive disorder Anxiety 05/11/2022 DX:Anxiety Social History Tobacco Use Types Packs/Day Years Used Date Smoking Tobacco: Never Assessed Sex and Gender Information Value Date Recorded Sex Assigned at Not on file Legal Sex Male 1:02 AM EST Gender Identity Not on file Sexual Orientation Not on file Obstetrics History Last Filed Vital Signs Vital Sign Reading Time Taken Comments Blood Pressure - - Pulse - - Temperature - - Respiratory Rate - - Oxygen Saturation - - Inhaled Oxygen Concentration - - Weight 113 kg (250 lb) 01/18/2023 10:25 AM EDT Height 172.7 cm (5' 8 ) 01/18/2023 10:25 AM EDT Body Mass Index 38.01 01/18/2023 10:25 AM EDT Plan of Treatment Upcoming Encounters Date Type Department Care Team (Late st Contact Info) Description 09/30/2024 2:30 PM EDT Office Visit Orthopedic Surgery - [place] [address] [phone] Juan Martinez, DPM [address] [address] Health Maintenance Due Date Last Done Comments DTaP,Tdap,and Td Vaccines (1 - Tdap) 1996 Hepatitis B Vaccines (1 of 3 - 19+ 3-dose series) 1996 Cholesterol Screening (Lipid Panel) 08/11/2022 Colorectal Cancer Screening: Colonoscopy 08/11/2022 Depression Screening 08/11/2022 HIV Screening 08/11/2022 Hepatitis C Screening 08/11/2022 Social Influencers of Health Screening 08/11/2022 COVID-19 Vaccine (1 - 2023-2 5 season) 2024 Influenza Vaccine (#1) 2024 HIB Vaccines Aged Out No longer eligi ble based on patient's age to complete this topic HPV Vaccines Aged Out No longer eligi ble based on patient's age to complete this topic Hepatitis A Vaccines Aged Out No long er eligible based on patient's age to complete this topic IPV Vaccines Aged Out No longer eligi ble based on patient's age to complete this topic MMR Vaccines Aged Out No longer eligi ble based on patient's age to complete this topic Meningococcal ACWY Vaccine Aged Out N o longer eligible based on patient's age to complete this topic Meningococcal B Vacine Aged Out No lo nger eligible based on patient's age to complete this topic Pneumococcal Vaccine: Pediat rics (0 to 5 Years) and At-Risk Patients (6 to 64 Years) Aged Out No longer eligible b ased on patient's age to complete this topic RSV Immunization Patients Un hardeep 20 months Aged Out No longer eligible b ased on patient's age to complete this topic Varicella Vaccines Aged Out No longer eligible based on patient's age to complete this topic Care Teams Cook Starch Relationship Specialty [place] [address] [place] [phone] PCP - General Internal Medicine 04/19/22
== END ==
LOC: HO.SL 14:15
PROVIDERS: PCP Physician Assistant Medical; Visit Provider Physician Assistant Medical
DX: G47.30 Sleep apnea, unspecified (principal); R53.83 Other fatigue; G47.9 Sleep disorder, unspecified
CPT/HCPCS: 95806

== ENCOUNTER → 2024-09-15 14:49 | Outpatient (BNV) | payer MEDICARE, MEDICAID, SELFPAY | PROVIDERS: PCP Physician Assistant Medical; Visit Provider Psychiatry & Neurology Neurology | DX: G47.33 Obstructive sleep apnea (adult) (pediatric) (principal) | CPT/HCPCS: 95806 ==

== ENCOUNTER → 2024-11-27 20:30 | Outpatient (REF) | payer MEDICARE, SELFPAY ==
--- OUTSIDE RECORDS SUMMARY | 2024-11-27 22:10 | XMS_ITS | Clinical Summary ---
Author Organization [address] [facility] Address [address] [place] [address] Phone Care Team Providers Care Director Visual Name Role Phone Warren Lacy Primary Care Provider [phone] Allergies Active Allergy Reactions Criticality Noted Date [...] mouth every 6 (six) hours if needed. Active metFORMIN XR (GLUCOPHAGE-XR) 750 mg 24 hr tablet Take 1 tablet (750 mg total) by mouth 1 (one) time each day with breakfast. Active omeprazole (PRILOSEC) 20 mg tablet,delayed release (DR/EC) Take by mouth. Active Active Problems Problem Noted Date Diagnosed Date Anxiety 05/11/2022 Major depressive disorder 05/11/2022 Mixed hyperlipidemia 05/11/2022 Obesity 05/11/2022 Onychomycosis 05/11/2022 Overview (08/08/2024): toe Renal disorder 05/11/2022 Encounters Date Type Department Care Team Description 09/30/2024 2:30 PM EDT Office Visit Orthopedic Surgery [facility] [address] [phone] Juan Martinez DPM Diabetic mononeuropathy simplex ([facility] V24, [facility] V28) (Primary Dx); Dermatophytosis of nail from Last 3 Months Medical History Medical History Date Comments Renal [...] - - Weight 113 kg (250 lb) 09/30/2024 2:18 PM EDT Height 172.7 cm (5' 7.99 ) 09/30/2024 2:18 PM ED T Body Mass Index 38.02 09/30/2024 2:18 PM EDT Plan of Treatment Upcoming Encounters Date Type Department Care Team (Late st Contact Info) Description 01/05/2025 1:00 PM EDT Office Visit Orthopedic Surgery [facility] [address] [phone] Juan Martinez DPM [address] [address] Health Maintenance Due Date Last Done Comments Diabetes: Annual Foot Exam 1987 Diabetes: Annual Retina Eye Exam 1987 Hepatitis B Vaccines (1 of 3 - 19+ 3-dose series) 1996 Pneumococcal Vaccine: Pediatrics (0 to 5 Years) and At-Risk Patients (6 to 64 Years) (1 of 2 - PCV) 1996 Cholesterol Screening (Lipid Panel) 08/11/2022 Colorectal Cancer Screening: Colonoscopy 08/11/2022 Depression Screening 08/11/2022 HIV Screening 08/11/2022 Hepatitis C Screening 08/11/2022 Social Influencers of Health Screening 08/11/2022 Diabetes: Annual GFR (Glomerular Filtration Rate) 05/18/2023 05/18/2022 COVID-19 Vaccine ( - 2023-2 5 season) 2024 Diabetes: Annual Urine Albumin-Creatinine Ratio (uACR) 10/01/2024 Diabetes: Blood Sugar Contro l Test (HGBA1C) 10/01/2024 Influenza Vaccine (Season Ended) 2025 03/13/2017, 03/11/2012 DTaP,Tdap,and Td Vaccines (3 - Td or Tdap) 10/24/2028 10/24/2018, 12/30/2008 HIB Vaccines Aged Out No longer eligi [...] age to complete this topic Meningococcal B Vaccine Aged Out No l onger eligible based on patient's age to complete this topic RSV Immunization Patients Under 20 months Aged Out No longer eligible b ased on patient's age to complete this topic Varicella Vaccines Aged Out No longer eligible based on patient's age to complete this topic Procedures Procedure Name Priority Date/Time Associated Diagnosis Comments ANNUAL BMP BLOOD TEST Routine 05/18/2022 from Last 3 Months or Most Recently Relevant to Health Maintenance Results * Annual BMP Blood Test (05/18/2022) Annual BMP Blood Test abstracted us Historical Provider HEALTH MAINTENANCE Final Result from Last 3 Months or Most Recently Relevant to Health Maintenance Insurance [place] [facility] [place] [id number] Care Teams Director Visual Relationship Specialty Start Date End Date Warren Lacy PA [address] [phone] PCP - General Internal Medicine 04/19/22
--- OUTSIDE RECORDS SUMMARY | 2024-11-27 22:10 | XMS_ITS ---
Author Name Pricilla MOROCHO, RN, RD, Corin Address [address] [place] [address] Phone [phone] Organization [facility] [employer] [facility] Care Team Providers Care Milling General Superintendent Name Role Phone Corin Pleitez Unavailable [phone] Reason for Referral Not Available Allergies, adverse [...]
--- OUTSIDE RECORDS SUMMARY | 2024-11-27 22:10 | XMS_ITS | Data Portability ---
Author Organization [facility], Main Office Address [address] [facility] [address] [place] [id number] Care Team Providers Care Client Insights Consultant Name Role Phone CARMEN CLARY Primary Care Provider 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 Patient consented to telephone visit Patient was located in the [facility]. Provider was located in the office. No other persons participated in the telemedicine visit except for the patient unless otherwise indicated here. {{}} Total time of visit was 22 minutes. pmadden Not available 07/24/2023 11:45:59 04/08/2024 04/08/2024 This service was provided using telemedicine. Patient consented to telephone visit Patient was located in the [facility]. Provider was located in the office. No other persons participated in the telemedicine visit except for the patient unless otherwise indicated here. {{}} Total time of visit was 23 minutes. pmadden Not available 04/08/2024 15:52:16 Plan of Treatment Reminders Order Date Submit Date Provider Last Modified By Organization Details Last Modified Time Details Appointments None record ed. Lab Hepati tis C IgG Ab, qual, serum 2024 025 SRUTHI [facility], [address], [place], [address], 16:33:06 HBsAg (hepat itis B surfac e Ag), EIA, serum 2024 025 SRUTHI [facility], [address], [place], [address], 16:33:11 HIV 1 + 2, meanin gful use set 2024 025 SRUTHI [facility], [address], [place], [address], 16:33:03 trepon isaias pallid um IgG + IgM Ab, QL, IA, serum 2024 025 [email or web address] [facility] (Centralized Electronic Ordering - All Locations), Patient Can Go To The Location Of Their Choice, 14:16:42 CT + NG RNA, PCR, unspec ified specim en 2024 025 [email or web address] [facility] ([facility] Ordering - All Locations), Patient Can Go To The Location Of Their Choice, 14:16:42 hepati tis B core IgM Ab, qual, serum or plasma 2024 025 [email or web address] [facility] ([facility]ized [facility] Ordering - All Locations), Patient Can Go To The Location Of Their Choice, 14:16:42 TSH, ultra- sensit snehal, serum 2024 025 SRUTHI [facility] (Centralized Electronic Ordering - All Locations), Patient Can Go To The Location Of Their Choice, 16:33:08 celiac diseas e serolo gy panel, serum 2024 025 SRUTHI [facility] (Centralized [facility] Ordering - All Locations), Patient Can Go To The Location Of Their Choice, 16:33:04 lipid panel, serum 2024 025 SRUTHI [facility] (Centralized [facility] Ordering - All Locations), Patient Can Go To The Location Of Their Choice, 16:33:07 CK (creat ine kinase ), total, serum 2024 025 SRUTHI [facility] ([facility] Ordering - All Locations), Patient Can Go To The Location Of Their Choice, 16:33:09 CBC w/ auto diff 2024 025 SRUTHI [facility] (Centralized [facility] Ordering - All Locations), Patient Can Go To The Location Of Their Choice, 16:33:07 HbA1c (hemog lobin A1c), blood 2024 025 SRUTHI [facility] ([facility] Ordering - All Locations), Patient Can Go To The Location Of Their Choice, 16:33:09 microa lbumin /creat inine, mass ratio, urine 2024 025 SRUTHI [facility] (Centralized [facility] Ordering - All Locations), Patient Can Go To The Location Of Their Choice, 16:33:06 CMP, serum or plasma 2024 025 SRUTHI [facility] ([facility] Ordering - All Locations), Patient Can Go To The Location Of Their Choice, 16:33:12 vitami n D, 25-hyd lizz, total, serum 2024 025 SRUTHI [facility], [address], [place], [address], 16:33:05 HbA1c (hemog lobin A1c), blood 2023 024 [employer] [facility] (Centralized Electronic Ordering - All Locations), Patient Can Go To The Location Of Their Choice, 09:33:46 BMP, serum or plasma 2023 024 [email or web address] [facility] ([facility]ized [facility] Ordering - All Locations), Patient Can Go To The Location Of Their Choice, 09:33:47 vitami n D, 25-hyd lizz, total, serum 2023 024 lmulerovalle [facility], [address], [place], [address], 4 09:23:13 celiac diseas e serolo gy panel, serum 2023 ramírez [facility]), Patient Can Go To The Location Of Their Choice, 5 09:33:47 HbA1c (hemog lobin A1c), blood 2023 [facility] Locations), Patient Can Go To The Location Of Their Choice, 18:05:55 CMP, serum or plasma 2023 HEDLEY [facility] (Central[facility] Order[facility] - All Locations), Patient Can Go To The Location Of Their Choice, 18:05:53 microa lbumin /creat inine, mass ratio, urine 2023 [facility] ([facility] - [facility] Locations), Patient Can Go To The Location Of Their Choice, 18:05:54 Hepati tis C IgG Ab, qual, serum 2023 [facility] ([facility] - All Locations), Patient Can Go To The Location Of Their Choice, 18:05:55 HBsAg (hepat itis B surfac e Ag), EIA, serum 2023 [facility] ([facility] - All Locations), Patient Can Go To The Location Of Their Choice, 18:05:57 HIV 1 + 2, meanin gful use set 2023 H[facility]LEY [facility] ([facility] - All Locations), Patient Can Go To The Location Of Their Choice, 18:05:56 trepon isaias pallid um IgG + IgM Ab, QL, IA, serum 2023 024 HEDLEY [facility] ([facility] Order[facility] - All Locations), Patient Can Go To The Location Of Their Choice, 18:05:56 CT + NG RNA, PCR, unspec ified specim en 2023 024 SRUTHI [facility] (Centralized [facility] Ordering - All Locations), Patient Can Go To The Location Of Their Choice, [id number] 4 18:05:54 hepati tis B core IgM Ab, qual, serum or plasma 2023 024 SRUTHI [facility] ([facility] Ordering - All Locations), Patient Can Go To The Location Of Their Choice, [id number] 4 18:05:57 lipid panel, serum 2023 024 SRUTHI [facility], [address], [place], [address], 4 06:08:23 BMP, serum or plasma 2023 024 SRUTHI [facility], [address], [place], [address], 4 06:08:22 HbA1c (hemog lobin A1c), blood 2023 024 lmulerovalle [facility], [address], [place], [address], 4 09:18:50 microa lbumin , urine 2023 024 lmulerovalle [facility], [address], [address], [place], [address], 4 10:57:07 BMP, serum or plasma 2023 024 lmulerovalle [facility], [address], [address], [place], [address], 4 11:47:21 Referral nutrit ionist /dieti joby referr al 2024 025 Not available 5 16:37:25 psychi atrist referr al - Medica tion consul tation with Robert Rosas MD 2024 025 [facility] [address] [place], [address], 5 08:47:07 psychi atrist referr al 2023 024 [facility], [address], [place], [address], 5 11:50:06 nutrit ionist /dieti joby referr al 2023 024 [email or web address] Not available 4 09:14:57 diabet ic ophtha lmolog y referr al 2023 024 [facility] Rjainder Rendon Alfredito, [address], [place], [address], 4 09:53:23 nutrit ionist /dieti joby referr al 2023 024 [email or web address] Not available 4 11:05:50 Procedures None record ed. Surgeries None record ed. Imaging None record ed. Medication Orders clotri mazole 1 % topica yasemin brauni on 2024 025 [facility] #[id number], [address] [place], [address], 5 16:32:49 buspir one 10 mg tablet 2024 025 [id number], [address] [place], [address], 5 16:32:49 buprop ion HCl SR 150 mg tablet ,12 hr sustai lesia-re lease 2023 024 [facility] #[id number], [address] [place], [address], 4 15:00:52 buspir one 10 mg tablet 2023 024 [facility] #[id number], [address] [facility], [place], [address], 15:00:52 Patient Targets Encounter Date Encounter Id Patient Goals Patient Target Last Modified By Organization Details Last Modified Time 09/26/2023 [id number] Ongoing of Microalbumin/Cre atinine Ratio yearly Not [...] goal. pmadden Not available 09/26/2023 13:34:22 03/03/2024 [id number] Ongoing of Microalbumin/Cre atinine Ratio yearly Not [...] toward goal. 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 pmadden Not available 11/20/2024 17:14:42 Patient Instructions Encounter Date Encounter Id Patient Instructions Last Modified By Organization Details Last Modified Time 07/24/2023 [id number] Medications (OTC, herbal therapies, supplements) reviewed and reconciled with patient and or caregiver, including potential side effects, drug interactions, instructions, and the consequences of not taking medication. Reviewed potential barriers to medication adherence, such as side effects from medication or cost of medication. pmadden Not available 07/24/2023 13:04:14 09/26/2023 [id number] starting a weight loss plan: care instructions pmadden Not available 09/26/2023 13:36:11 Nutrition Referral and Weight Management Follow-up Information pmadden Not available 09/26/2023 13:36:11 encouraged pt to check outstanding labs as directed pmadden Not available 09/26/2023 13:15:57 Medications (OTC, herbal therapies, supplements) reviewed and reconciled with patient and or caregiver, including potential side effects, drug interactions, instructions, and the consequences of not taking medication. Reviewed potential barriers to medication adherence, such as side effects from medication or cost of medication. [email or web address] Not available 09/26/2023 13:01:44 03/03/2024 [id number] starting a weight loss plan: care instructions pmadden Not available 03/03/2024 15:00:46 Nutrition Referral and Weight Management Follow-up Information pmadden Not available 03/03/2024 15:00:45 learning about stress pmadden Not available 03/03/2024 15:00:45 Mental Health Information pmadden Not available 03/03/2024 15:00:45 Medications (OTC, herbal therapies, supplements) reviewed and reconciled with patient and or caregiver, including potential side effects, drug interactions, instructions, and the consequences of not taking medication. Reviewed potential barriers to medication adherence, such as side effects from medication or cost of medication. pmadden Not available 03/03/2024 14:55:40 04/08/2024 [id number] Medications (OTC, herbal therapies, supplements) reviewed and reconciled with patient and or caregiver, including potential side effects, drug interactions, instructions, and the consequences of not taking medication. Reviewed potential barriers to medication adherence, such as side effects from medication or cost of medication. pmadden Not available 04/08/2024 15:44:37 11/20/2024 [id number] otomycosis: care instructions pmadden Not available 11/20/2024 16:32:47 starting a weight loss plan: care instructions pmadden Not available 11/20/2024 16:32:46 Nutrition Referral and Weight Management Follow-up Information pmadden Not available 11/20/2024 16:32:47 Well Visit, Ages 18 to 65: Care Instructions pmadden Not available 11/20/2024 16:32:47 Medications (OTC, herbal therapies, supplements) reviewed and reconciled with patient and or caregiver, including potential side effects, drug interactions, instructions, and the consequences of not taking medication. Reviewed potential barriers to medication adherence, such as side effects from medication or cost of medication. pmadden Not available 11/20/2024 16:32:41 Reason for Referral Trap Setter/dietitian Refer ral for Body mass index 30+ - obesity Referring Physician: Clary Lacy, Internal Medicine, Encounter Date: 09/26/2023 Diabetic Ophthalmology Refer ral for Renal disorder due to type 2 diabetes mellitus Referring Physician: Clary Lacy, Internal Medicine, Encounter Date: 09/26/2023 Trap Setter/dietitian Refer ral for Body mass index 40+ - severely obese Referring Physician: Clary Lacy, Internal Medicine, Encounter Date: 03/03/2024 Psychiatrist Referral for Ma avelino depressive disorder Referring Physician: Clary Lacy, Internal Medicine, Encounter Date: 04/08/2024 Psychiatrist Referral for Ma avelino depressive disorder Medication Consultation Medication consultation with Robert Rosas MD Referring Physician: Clary Lacy, Internal Medicine, Encounter Date: 11/20/2024 Trap Setter/dietitian Refer ral for Body mass index 40+ - severely obese Referring Physician: Clary Lacy, Internal Medicine, Encounter Date: 11/20/2024 Results Created Date Observation Date Name Description Value Unit Range Abnormal Flag Note LastModifiedBy Organization Detail LastModifiedTime 09/26/19 24 09/27/2023 BASIC METAB OLIC PANEL (8) glucose 101 mg/dL 70-99 above high normal Not Available [facility] ([facility]) [address] [place], [address], 09/28/2023 06:08:22 09/26/19 24 09/27/2023 BASIC METAB OLIC PANEL (8) BUN 12 mg/dL 6-24 Not Available [facility] ([facility]) [address] [place], [address], 09/28/2023 06:08:22 09/26/19 24 09/27/2023 BASIC METAB OLIC PANEL (8) creatinine 0.86 mg/dL 0.76-1 .27 Not Available [facility] ([facility]) [address] [place], [address], 09/28/2023 06:08:22 09/26/19 24 09/27/2023 BASIC METAB OLIC PANEL (8) eGFR 108 mL/mi n/1.7 3 >59 Not Available [facility] ([facility]) [address] [place], [address], 09/28/2023 06:08:22 09/26/19 24 09/27/2023 BASIC METAB OLIC PANEL (8) BUN/creatini ne ratio 14 9-20 Not Available [facility] ([facility]) [address] [place], [address], 09/28/2023 06:08:22 09/26/19 24 09/27/2023 BASIC METAB OLIC PANEL (8) sodium 135 mmol/ L 134-14 4 Not Available [facility] ([facility]) [address] [place], [address], 09/28/2023 06:08:22 09/26/19 24 09/27/2023 BASIC METAB OLIC PANEL (8) potassium 4.1 mmol/ L 3.5-5. 2 Not Available [facility] ([facility]) [address] [place], [address], 09/28/2023 06:08:22 09/26/19 24 09/27/2023 BASIC METAB OLIC PANEL (8) chloride 95 mmol/ L 96-106 below low normal Not Available [facility] ([facility]) [address] [place], [address], 09/28/2023 06:08:22 09/26/19 24 09/27/2023 BASIC METAB OLIC PANEL (8) carbon dioxide, total 23 mmol/ L 20-29 Not Available [facility] ([facility]) [address] [place], [address], 09/28/2023 06:08:22 09/26/19 24 09/27/2023 BASIC METAB OLIC PANEL (8) calcium 10.0 mg/dL 8.7-10 .2 Not Available [facility] ([facility]) [address] [place], [address], 09/28/2023 06:08:22 09/26/19 24 09/27/2023 LIPID PANEL cholesterol, total 138 mg/dL 100-19 9 Not Available [facility] ([facility]) [address] [place], [address], 09/28/2023 06:08:23 09/26/19 24 09/27/2023 LIPID PANEL triglyceride s 208 mg/dL 0-149 above high normal Not Available [facility] ([facility]) [address] [place], [address], 09/28/2023 06:08:23 09/26/19 24 09/27/2023 LIPID PANEL HDL cholesterol 46 mg/dL >39 Not Available [facility] ([facility]) [address] [place], [address], 09/28/2023 06:08:23 09/26/19 24 09/27/2023 LIPID PANEL VLDL cholesterol gabino 34 mg/dL 5-40 Not Available [facility] ([facility]) [address] [place], [address], 09/28/2023 06:08:23 09/26/19 24 09/27/2023 LIPID PANEL LDL chol calc ([facility]) 58 mg/dL 0-99 Not Available [facility]) [address] [place], [address], 09/28/2023 06:08:23 09/26/19 24 09/27/2023 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 METAB OLIC PANEL (14) glucose 98 mg/dL 70-99 normal Not Available [facility] ([facility]) [address] [place], [address], 03/04/2024 18:05:53 03/03/20 24 03/04/2024 COMP. METAB OLIC PANEL (14) BUN 14 mg/dL 6-24 normal Not Available [facility] ([facility]) [address] [place], [address], 03/04/2024 18:05:53 03/03/20 24 03/04/2024 COMP. METAB OLIC PANEL (14) creatinine 0.64 mg/dL 0.76-1 .27 below low normal Not Available [facility] ([facility]) [address] [place], [address], 03/04/2024 18:05:53 03/03/20 24 03/04/2024 COMP. METAB OLIC PANEL (14) eGFR 118 mL/mi n/1.7 3 >59 normal Not Available [facility] ([facility]) [address] [place], [address], 03/04/2024 18:05:53 03/03/20 24 03/04/2024 COMP. METAB OLIC PANEL (14) BUN/creatini ne ratio 22 9-20 above high normal Not Available [facility] ([facility]) [address] [place], [address], 03/04/2024 18:05:53 03/03/20 24 03/04/2024 COMP. METAB OLIC PANEL (14) sodium 140 mmol/ L 134-14 4 normal Not Available [facility] ([facility]) [address] [place], [address], 03/04/2024 18:05:53 03/03/20 24 03/04/2024 COMP. METAB OLIC PANEL (14) potassium 4.5 mmol/ L 3.5-5. 2 normal Not Available [facility] ([facility]) [address] [place], [address], 03/04/2024 18:05:53 03/03/20 24 03/04/2024 COMP. METAB OLIC PANEL (14) chloride 101 mmol/ L 96-106 normal Not Available [facility] ([facility]) [address] [place], [address], 03/04/2024 18:05:53 03/03/20 24 03/04/2024 COMP. METAB OLIC PANEL (14) carbon dioxide, total 24 mmol/ L 20-29 normal Not Available [facility] ([facility]) [address] [place], [address], 03/04/2024 18:05:53 03/03/20 24 03/04/2024 COMP. METAB OLIC PANEL (14) calcium 10.3 mg/dL 8.7-10 .2 above high normal Not Available [facility] ([facility]) [address], [place], [address], 03/04/2024 18:05:53 03/03/20 24 03/04/2024 COMP. METAB OLIC PANEL (14) protein, total 7.4 g/dL 6.0-8. 5 normal Not Available [facility] ([facility]) [address] [place], [address], 03/04/2024 18:05:53 03/03/20 24 03/04/2024 COMP. METAB OLIC PANEL (14) albumin 5.0 g/dL 4.1-5. 1 normal Not Available [facility] ([facility]) [address] [place], [address], 03/04/2024 18:05:53 03/03/20 24 03/04/2024 COMP. METAB OLIC PANEL (14) globulin, total 2.4 g/dL 1.5-4. 5 Not Available [facility] ([facility]) [address] [place], [address], 03/04/2024 18:05:53 03/03/20 24 03/04/2024 COMP. METAB OLIC PANEL (14) bilirubin, total 0.4 mg/dL 0.0-1. 2 normal Not Available [facility] ([facility]) [address] [place], [address], 03/04/2024 18:05:53 03/03/20 24 03/04/2024 COMP. METAB OLIC PANEL (14) alkaline phosphatase 74 IU/L 44-121 normal Not Available [facility] [address], [place], [address], 03/04/2024 18:05:53 03/03/20 24 03/04/2024 COMP. METAB OLIC PANEL (14) AST (SGOT) 22 IU/L 0-40 normal Not Available [facility] ([facility]) [address], [place], [address], 03/04/2024 18:05:53 03/03/20 24 03/04/2024 COMP. METAB OLIC PANEL (14) ALT (SGPT) 32 IU/L 0-44 normal Not Available [facility] ([facility]) [address], [place], [address], 03/04/2024 18:05:53 03/03/20 24 03/04/2024 ALBUM IN/CR EAT RATIO , RANDO M UR creatinine, urine 88.5 mg/dL not estab. normal Not Available [facility] ([facility]) [address], [place], [address], 03/04/2024 18:05:54 03/03/20 24 03/04/2024 ALBUM IN/CR EAT RATIO , RANDO M UR albumin, urine 4.8 ug/mL not estab. Not Available [facility] ([facility]) [address], [place], [address], 03/04/2024 18:05:54 03/03/20 24 03/04/2024 ALBUM IN/CR EAT RATIO , RANDO M UR alb/creat ratio 5 mg/g_ creat 0-29 Dawna l: 0 - 29 Moder ately incre ased: 30 - 300 Sever eddie incre ased: >300 Not Available [facility] ([facility]) [address], [place], [address], 03/04/2024 18:05:54 03/03/20 24 03/04/2024 CHLAM YDIA/ GC AMPLI FICAT ION chlamydia trachomatis, TAVO NEGATI VE negati ve Not Available [facility] ([facility]) [address], [place], [address], 03/04/2024 18:05:54 03/03/20 24 03/04/2024 CHLAM YDIA/ GC AMPLI FICAT ION neisseria gonorrhoeae, TAVO NEGATI VE negati ve Not Available [facility] ([facility]) [address], [place], [address], 03/04/2024 18:05:54 03/03/20 24 03/04/2024 HCV ANTIB YING RFX TO QUANT PCR HCV Ab NON REACTI VE non reacti ve Not Available [facility] ([facility]) [address], [place], [address], 03/04/2024 18:05:55 03/03/20 24 03/04/2024 HCV ANTIB YING RFX TO QUANT PCR interpretati on: COMMEN T Not infec sierra with HCV unles s early or acute infec tion is suspe cted (whic h may be delay ed in an immun ocomp romis ed indiv idual ), or other evide nce exist s to indic ate HCV infec tion. Not Available [facility] ([facility]) [address], [place], [address], 03/04/2024 18:05:55 03/03/20 24 03/04/2024 HEMOG LOBIN A1C hemoglobin A1C 6.2 % 4.8-5. 6 above high normal Predi abete s: 5.7 - 6.4 Diabe lizzy: >6.4 Glyce prudencio contr ol for adult s with diabe lizzy: <7.0 Not Available [facility] ([facility]) [address], [place], [address], 03/04/2024 18:05:55 03/03/20 24 03/04/2024 T PALLI DUM SCREE REINA CASCA DE T pallidum antibodies NON REACTI VE non reacti ve Not Available [facility] ([facility]) [address], [place], [address], 03/04/2024 18:05:56 03/03/20 24 03/04/2024 HIV AB/P2 4 AG WITH REFLE X HIV Ab/P24 Ag screen NON REACTI VE non reacti ve HIV-1 /HIV- 2 antib odies and HIV-1 p24 antig en were NOT detec sierra. There is no labor atory evide nce of HIV infec tion. HIV Negat snehal Not Available [facility] ([facility]) [address], [place], [address], 03/04/2024 18:05:56 03/03/20 24 03/04/2024 HBSAG SCREE N HBsAg screen NEGATI VE negati ve Not Available [facility] ([facility]) [address] [place], [address], 03/04/2024 18:05:57 03/03/20 24 03/04/2024 HEP B CORE AB, IGM hep B core Ab, IgM NEGATI VE negati ve Not Available [facility] ([facility]) [address] [place], [address], 03/04/2024 18:05:57 Result Notes None recorded. Problems Name Problem SNOMED Code Status Onset Date Resolution Date Notes Provider Name and Address Organization Details Recorded Time Depressi ve disorder 29626966 Completed 03/05/2022 Clary Lacy PA-C [address], [place], [address] , [facility] [place] 2 21:05:23 Anxiety disorder 937073128 Active 2011 Jael wei, [facility] [place] 7 14:34:39 Cellulit is and abscess of buttock [id number] Completed 201102/03/2014 RECORDED 01/26/20 12 9:03AM BY MAGNUS SIDDIQUI MA, ANNOTATI ON/ADDEN DUM Not Available [facility] 4 15:13:47 Chest pain [id number] Completed 201102/03/2014 RECORDED 01/26/20 12 9:03AM BY MAGNUS SIDDIQUI MA, ANNOTATI ON/ADDEN DUM Not Available [facility] 4 15:13:47 Recurren t major depressi ve episodes , in full remissio n Completed 201103/05/2022 Clary Lacy PA-C [address], [place], [address] , [facility] 2 21:05:57 Exposure to organism Completed 201102/03/2014 RECORDED 01/26/20 12 9:03AM BY MAGNUS SIDDIQUI MA, ANNOTATI ON/ADDEN DUM Not Available [facility] 4 15:13:47 Malaise and fatigue [id number] Completed 201102/03/2014 IMPRESSI ON: LONG HX OF [...] BY STEPHY THOMASON ON/ADDEN DUM Not Available [facility] 4 15:13:47 Influenz a vaccine needed [id number] Completed 201102/03/2014 RECORDED 03/11/20 12 8:38AM BY SAMARA ACUÑA I, OFFICE VISIT Not Available [facility] 4 15:13:47 Noninfec tious gastroen teritis [id number] Completed 201102/03/2014 RECORDED 01/26/20 12 9:03AM BY MAGNUS SIDDIQUI MA, ANNOTATI ON/ADDEN DUM Not Available [facility] 4 15:13:47 Internal hordeolu m [id number] Completed 201102/03/2014 RECORDED 01/26/20 12 9:03AM BY MAGNUS SIDDIQUI MA, ANNOTATI ON/ADDEN DUM Not Available [facility] 4 15:13:47 Pure hypercho lesterol emia 476386338 Completed 201102/03/2014 RECORDED 01/26/20 12 9:03AM BY MAGNUS SIDDIQUI MA, ANNOTATI ON/ADDEN DUM Not Available [facility] 4 15:13:47 Insomnia 044548841 Active 2011 Jael wei [facility] 7 14:34:35 Administ ration of bacteria l and viral vaccine Completed 200802/03/2014 RECORDED 12/31/19 09 2:17PM BY TONYA ADAMES, OFFICE VISIT Not Available [facility] 4 15:13:47 High risk sexual behavior 214513537 Completed 201102/03/2014 RECORDED 01/26/20 12 9:03AM BY MAGNUS SIDDIQUI MA, ANNOTATI ON/ADDEN DUM Not Available [facility] 4 15:13:47 Adult health examinat ion Completed 201102/03/2014 RECORDED 01/26/20 12 9:03AM BY MAGNUS SIDDIQUI MA, ANNOTATI ON/ADDEN DUM Not Available [facility] 4 15:13:47 Drug abuse 53819490 Active 2011 Jael wei [facility] 7 14:34:41 Tobacco dependen ce syndrome 09708807 Active 2011 Jael wei [facility] 7 14:34:51 Cellulit is and abscess of buttock 577680632 Completed 201102/23/2014 RECORDED 01/26/20 12 9:03AM BY MAGNUS SIDDIQUI MA, ANNOTATI ON/ADDEN DUM Not Available [facility] 4 06:00:27 Chest pain 52085219 Completed 201102/23/2014 RECORDED 01/26/20 12 9:03AM BY MAGNUS SIDDIQUI MA, ANNOTATI ON/ADDEN DUM Not Available [facility] 4 06:00:27 Exposure to organism Completed 201102/23/2014 RECORDED 01/26/20 12 9:03AM BY MAGNUS SIDDIQUI MA,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 [place] [address] 01/21/2020 08:32:43 01/21/2020 10:05:58 Adult health examination 865077932 Z00.00 Essential hypertension 08565965 I10 bp elevated - but has been off his meds x 2 wks, resume meds as dir - bp check in 2 wks Gastroesop hageal reflux disease 750997394 K21.9 Renal diso rder due to type 2 diabetes mellitus 496805422 E11.22 N18.1 Continue quarterly follow-up of serum creatinine , blood pressure, glycemic control. Referral to renal as indicated. has tried johnna from his brother - much more convenient - will attempt to see if covered by his ins. Depressive disorder 3548 9007 F32.0 rafa/phq better - but he felt more energetic on wellbutrin - will change back, and get him back to [facility] Anxiety disorder 1608273 06 F41.9 see above Mixed hyperlipidemia 267 006807 E78.2 Morbid obesity 625976835 E66.01 discussed dietary modificati ons and exercise 3 x week for 30 mins. Body mass index 40+ - severely obese 877485153 E66.01 Z68.41 Fatigue 84742114 R53.83 Chronic ki dney disease stage 1 060065471 N18.1 Counseling 266785134 Z71 .9 Referral for counseling with Hannah / ELAINE Edwards. Please provide patient with contact info to schedule their appointmen t. González# email: [email or web address] [id number] Jose Alfredo Quinn MD Main Office [address] [facility] [address] [facility] [place] [address] 02/11/2020 15:31:09 02/12/2020 09:31:02 Essential hypertension 33738108 I10 bp much better p resumed meds - cont as dir Recurrent major depressive episodes, in full remission 872829508 F33.42 stable on med, cont as dir, encouraged pt to call [facility] if feels down again Fatigue 66035418 R53.83 rev recent labs c pt - no evidence of anemia & nl tsh - likely d/t patricia - see below Snoring 26422698 R06.83 father has patricia. will send to sleep specialist to r/o patricia Mixed hyperlipidemia 267 117678 E78.2 rec low carb diet to help lower your trigs -- also rec statin, recheck lipids in ~ 6 months Goiter 4445213 E04.9 pt states neck size has grown over past few months - will check thyroid u/s Anxiety disorder 0592587 06 F41.9 sig better - cont med as dir Tuberculos is screening 816502231 Z11.1 pt requested ppd for work - return in 2 days to get read [id number] Elio Ruiz MD Main Office [address] [facility] [address] [place] [address] 02/13/2020 15:51:30 02/13/2020 15:55:54 [id number] Jose Alfredo Quinn MD Telehealt h [address] [facility] [address] [place] [address] 04/22/2020 08:41:27 04/22/2020 15:30:44 Snoring 38738159 R06.83 father has patricia - pt was sent to sleep general internal medicine physician in 03.04 - apparently had sleep study [...] encouraged him to call his HR in [place], [place] to fwd paperwork to us, and we'd be happy to fill out for him Renal diso rder due to type 2 diabetes mellitus 610957575 E11.22 N18.1 Continue quarterly follow-up of serum creatinine , blood pressure, glycemic control. Referral to renal as indicated. Chronic ki dney disease stage 1 022176022 N18.1 [id number] Jose Alfredo Quinn MD Telehealt h [address] [facility] [address] [facility] [place] [address] 04/29/2020 08:04:32 04/29/2020 13:23:11 Renal disorder due to type 2 diabetes mellitus 247347351 E11.22 N18.1 Continue quarterly follow-up of serum creatinine , blood pressure, glycemic control. Referral to renal as indicated. Chronic ki dney disease stage 1 334745015 N18.1 Mixed hyperlipidemia 267 393670 E78.2 rec low carb diet to help lower your trigs -- also rec statin, recheck lipids in ~ 6 months Snoring 20756696 R06.83 father has patricia - pt was sent to sleep general internal medicine physician in 03.04 - apparently had sleep study [...] encouraged him to call his HR in [place], [place] to fwd paperwork to us, and we'd be happy to fill out for him update 1015 - ins. approval pending for in-office sleep study, and we did not get fmla/std paperwork yet - urged him to call HR again and have them cc: to him for verificati on, meanwhile - will give oown x 1 month to have this (and below) addressed Hematochezia 912536819 K 62.5 and occ hematemesi s - pt did not get egd/colon c [facility] d/t financial issues at the time - will re-try Gastroesop hageal reflux disease 148227910 K21.9 see above re: possible egd/colon [id number] Jose Alfredo Quinn MD Telehealt h [address] [facility] [address] [facility] [place] [address] 06/01/2020 07:20:14 06/01/2020 13:25:05 Renal disorder due to type 2 diabetes mellitus 134155923 E11.22 N18.1 encouraged pt to get outstandin g labs done, and get his DM eye exam too Snoring 60540481 R06.83 father has patricia - pt was sent to sleep general internal medicine physician in . - apparently had sleep study [...] encouraged him to call his HR in [place], [place] to fwd paperwork to us, and [...] states he has been in touch c [facility] nt office as well (but ? if he rec'd pink slip from his employer) Hematochezia 021567335 K 62.5 and occ hematemesi s - pt did not get egd/colon c [facility] d/t financial issues at the time - will re-try update 11.17 - pt states he contacted gi - postponed his 11.4 eval - he will get in touch with them in the near future p his snoring/sl eeping issues addressed Mixed hyperlipidemia 267 749319 E78.2 rec low carb diet to help lower your trigs -- just began statin, recheck lipids in ~ 4 months [id number] Jose Alfredo Quinn MD Telehealt h [address] [facility] [address] [facility] [place] [address] 10/19/2020 08:30:44 10/19/2020 16:20:04 Major depressive disorder 627957238 F32.3 just recently sent updated rx for wellbutrin - hasn't started yet - urged him to do so (qd initially then increase to bid as gordon) pt states he made an apptmt c [facility] for next wk Anxiety disorder 06 F41.9 see above - ? agoraphobi a too - hasn't left his home in a while to get rx's, urged him to have friend take him sounds like he has been experienci ng panic attacks lately - explained pros/cons of prn benzo - pt wishes to have small rx for prn use, low risk for addiction Apnea 2192872 R06.81 rev recent note - combinatio n of obstructiv e and central - cont cpap, f/u c sleep med Onychomyco sis of toenails 833598801 B35.1 pt requests pod eval [id number] Clary Lacy PA-C Main Office [address] [facility] [address] [facility] [place] [address] 01/26/2021 08:48:25 01/26/2021 09:48:27 Adult health examination 182792280 Z00.00 Anxiety disorder F41.9 severe on rafa [...] on wellbutrin - urged him to call [facility] to make apptmt = hasn't done so yet, they're just down the street from him - he has a referral already Essential hypertension 44165754 I10 bp stable - cont as dir - will change to combo pill - less $ Mixed hyperlipidemia 267 518617 E78.2 rec low carb diet to help lower your trigs -- recheck lipids Renal diso rder due to type 2 diabetes mellitus 358409678 E11.22 N18.1 encouraged pt to get get his DM eye exam and to see photographic reproduction technician (has referral for this) cont meds as dir check labs Tobacco de pendence syndrome 03549821 F17.290 Administra tion of pneumococcal vaccine 88934893 Z23 pt declines at this time Apnea 4662067 R06.81 rev recent note - combinatio n of obstructiv e and central - cont cpap, f/u c sleep med Chronic ki dney disease stage 1 845819744 N18.1 Insomnia 178117133 G47.0 0 trial c trazodone to help c sleep and mood - hopefully will not need benzo to help sleep in the future Body mass index 40+ - severely obese 648553947 E66.01 Z68.41 [id number] Clary Lacy PA-C Telehealt h [address] [facility] [address] [place] [address] 02/22/2021 08:22:52 02/22/2021 12:55:09 Anxiety disorder 313107764 F41.9 severe on rafa - ? agoraphobi [...] octavio when has panic attack Depressive disorder 3548 9007 F32.2 rafa/phq severe- but he is feeling more energetic on wellbutrin - urged him to call [facility] to make apptmt = hasn't done so yet, they're just down the street from him - he has a referral already 8.10 -- has reached out to [facility], but still hasn't connected c them for a date yet - if still unsuccessf , then call [facility] below Insomnia 529325093 G47.0 0 trial c trazodone to help c sleep and mood - hopefully will not need benzo to help sleep in the future rec increase traz to 75mg qhs Hematochezia 551910239 K 62.5 pending see gi on 03.08 Mixed hyperlipidemia 267 707756 E78.2 rec low carb diet to help lower your trigs, cont statin as dir Exposure t o sexually transmissible disorder 197726042 Z20.2 pt requested sti testing Counseling 401273734 Z71 .9 Referral for counseling with Hannah / ELAINE Edwards. Please provide patient with contact info to schedule their appointmen t. 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 x ~ 6 months, getting progressiv eddie worse - has tried home remedies, aloe - no sig help - rec trial of rogaine while awaiting derm eval Renal diso rder due to type 2 diabetes mellitus 859011086 E11.22 N18.1 better control of sugars lately - A1c stable at 6.2 despite ~ 40 lbs of wt gain - cont metformin as dir will get podiatry eval and eye md [facility] 2.22 - no labs/ov in several months - will check labs, and discuss further at next ov Gastroesop hageal reflux disease 683885760 K21.9 cont ppi as dir by gi - apparently had egd/colon - no records to review - will attempt to get Hematochezia 793939984 K 62.5 see above - likely has occ hem bleed - no help c otc agents - will send in steroid cream - if no better then consider colorectal eval Apnea 3835619 R06.81 rev recent note - combinatio n of obstructiv e and central - feeling much better as per pt - cont cpap, f/u c sleep med Exposure t o sexually transmissible disorder 755182654 Z20.2 pt requested sti testing Chronic ki dney disease stage 1 773199966 N18.1 Hypertensi ve renal disease 32573846 I12.9 bp stable as per pt- cont as dir [id number] Jose Alfredo Quinn MD Main Office [address] [facility] [address] [facility] [place] [address] 03/01/2022 12:51:59 03/01/2022 14:09:28 Adult health examination 580729572 Z00.00 Body mass index 30+ - obesity 296642433 E66.01 Z68.39 Pt has lost add'l wt - diet > exercise, cont hawthorn extract Anxiety disorder 1557524 06 F41.9 severe on rafa - ? [...] agoraphobi a - encouraged pt to call [facility] Apnea 4695851 R06.81 combinatio n of obstructiv e and central - feeling much better as per pt - cont cpap, f/u c sleep med Chronic ki dney disease stage 1 928470547 N18.1 Renal diso rder due to type 2 diabetes mellitus 348497660 E11.22 N18.1 better control of sugars lately [...] md in 2 months Mixed hyperlipidemia 267 830710 E78.2 rec low carb diet to help lower your trigs, cont statin as dir Major depr essive disorder 071799314 F32.0 just recently sent updated rx for wellbutrin - hasn't started yet - urged him to do so (qd initially then increase to bid as gordon) encouraged pt to call [facility] for next wk Gastroesop hageal reflux disease 161013166 K21.9 cont ppi as dir by gi Hypertensi ve renal disease 69730829 I12.9 bp elevated - rec double up combo pill Onychomyco sis of toenails 142347617 B35.1 pt requests pod eval External hemorrhoids 239 91072 K64.4 ext hem bleed most days - no sig help c hem cream - will try supp & get colorectal sx eval 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 has agoraphobi a - encouraged pt to call [facility] [id number] Jose Alfredo Quinn MD Main Office [address] [facility] [address] [facility] [place] [address] 07/03/2022 12:56:44 07/03/2022 13:47:22 Renal disorder due to type 2 diabetes mellitus 398678176 E11.22 N18.1 better control of sugars lately [...] c wt loss/sugar as directed Anxiety disorder F41.9 severe on rafa - [...] agoraphobi a - encouraged pt to call [facility] 12 - stable, pt requests refill of prn benzo, to begin therapy next month Palpitations 87880303 R0 0.2 ? d/t SE of truvy for wt loss - check labs, if worse in future then consider BB Chronic ki dney disease stage 1 896526017 N18.1 Hypertensi ve renal disease 84878800 I12.9 bp stable, cont meds as dir [id number] Jose Alfredo Quinn MD Main Office [address] [facility] [address] [place] [address] 12/28/2022 14:17:14 12/28/2022 15:43:19 Anxiety disorder 440597743 F41.9 severe on rafa - ? agoraphobi [...] agoraphobi a - encouraged pt to call [facility] 12.22 - stable, pt requests refill of prn benzo, to begin therapy next month 6.23- Pt did not go to therapy due to insurance. RAFA score 21. see below, will add buspar & encouraged pt to see therapist Major depr essive disorder 614991852 F32.0 just recently sent updated rx for wellbutrin - hasn't started yet - urged him to do so (qd initially then increase to bid as gordon) 6.23- Taking Wellbutrin with no improvemen t. PHQ 9 score 22. will add buspar Renal diso rder due to type 2 diabetes mellitus 030888772 E11.22 N18.1 better control of sugars lately - A1c stable at 6.2 despite ~ 40 lbs of wt gain - cont metformin as dir will get podiatry eval and eye md eval 2.22 - no labs/ov in several months [...] by his ins, may need PA Hemorrhoids 19249342 K64 .9 see below Hematochezia 906190151 K 62.5 see above - likely has occ hem bleed - no help c otc agents - will send in steroid cream - if no better then consider colorectal eval 6.23 - seen by colorectal sx - no surgery offered ==== last colon 10.21 Body mass index 40+ - severely obese 864173883 E66.01 Z68.41 see dm above Chronic ki dney disease stage 1 111373731 N18.1 [id number] Jose Alfredo Quinn MD Telehealt h [address] [place] [address] 02/13/2023 08:31:01 02/13/2023 10:24:44 Major depressive disorder 760477311 F32.2 just recently sent updated rx for wellbutrin - hasn't started yet - urged him to do so (qd initially then increase to bid as gordon) 6.23- Taking Wellbutrin with no improvemen t. PHQ 9 score 22. will add buspar 8..23 - see above Panic diso rder with agoraphobia 37253269 F40.01 see above - - ? has agoraphobi a - encouraged pt to call [employer] 8..23 - see above Renal diso rder due to type 2 diabetes mellitus 814735578 E11.22 N18.1 better control of sugars lately - A1c stable at 6.2 despite ~ 40 lbs of wt gain - cont metformin as dir will get podiatry divya and eye md divya 2.22 - no labs/ov in several months [...] need PA 8.. - no like [place] lester so stated he will stop Anxiety disorder 7845602 06 F41.9 severe on rafa - ? [...] agoraphobi a - encouraged pt to call [place] [facility] 12.22 - stable, pt requests refill of [...] uptitrate dose. also, encouraged pt to call [facility] to check on rest of aptmt building for mice (the primary source of his stress lately), and advised pt to see therapist Mixed hyperlipidemia 267 522691 E78.2 rec low carb diet to help lower your trigs, cont statin as dir Exposure t o sexually transmissible disorder 107029226 Z20.2 pt requested sti testing [id number] Jose Alfredo Quinn MD Main Office [address] [facility] [address] [place] [address] 04/30/2023 10:38:47 04/30/2023 13:52:37 Herpes labialis 3959413 B00.1 Better now c herpecin L (symptomat ic relief) - but not fully resolved - trial c abreva topically, will give valtrex for future PRN [id number] Jose Alfredo Quinn MD Main Office [address] [facility] [address] [place] [address] 05/23/2023 13:59:28 05/23/2023 15:09:08 Adult health examination 588961194 Z00.00 Anxiety disorder 6942276 06 F41.9 severe on rafa - ? [...] agoraphobi a - encouraged pt to call [facility] 12.22 - stable, pt requests refill of [...] uptitrate dose. also, encouraged pt to call [facility] to check on rest of aptmt building [...] of prn benzoencou raged pt to call [email or web address] Influenza vaccination declined 759250047 Z28.21 Herpes labialis 3383875 B00.1 Better now c herpecin L (symptomat ic relief) - but not fully resolved - trial c abreva topically, will give valtrex for future PRN 11.23 - better p used valtrexapp arently ID eval was turned awayencour aged pt to go for outstandin g labsconsid er ID eval if + Major depr essive disorder 966677083 F32.2 just recently sent updated rx for wellbutrin - hasn't started yet - urged him to do so (qd initially then increase to bid as gordon)6.23- Taking Wellbutrin with no improvemen t. PHQ 9 score 22. will add buspar 11.23 - see above Renal diso rder due to type 2 diabetes mellitus 714638619 E11.22 better control of sugars lately - A1c stable at 6.2 despite ~ 40 lbs of wt gain - cont metformin as dir will get podiatry divya and eye md divya 2.22 - no labs/ov in several months [...] stop Chronic ki dney disease stage 1 809385765 N18.1 Hypertensi ve renal disease 26341561 I12.9 bp stable, cont meds as dir Mixed hyperlipidemia 267 921038 E78.2 rec low carb diet to help lower your trigs, cont statin as dir Body mass index 30+ - obesity 026503964 E66.01 Z68.39 Pt has lost add'l wt - diet > exercise, cont hawthorn extract 11.23 - rec increase sleep, exercise, better diet (low carb) [id number] Jose Alfredo Quinn MD Telehealt h [address] [facility] [address] [place] [address] 06/26/2023 10:12:56 06/26/2023 13:30:39 Anxiety disorder 820706393 F41.9 severe on rafa - ? agoraphobi [...] agoraphobi a - encouraged pt to call [facility] 12.22 - stable, pt requests refill of [...] uptitrate dose. 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 PHQ 9 score 22. will add buspar 11.23 - see above Temporoman dibular joint disorder 08568212 M26.609 advised pt to f/u c his dentist - may need mouthguard or referral to oral surgeonzander hewitt trial of prn ice/heat [id number] Jose Alfredo Quinn MD Telehealt h [address] [facility] [address] [place] [address] 07/24/2023 10:31:25 07/24/2023 13:17:49 Anxiety disorder 890428351 F41.9 severe on rafa - ? agoraphobi [...] agoraphobi a - encouraged pt to call [facility] 12.22 - stable, pt requests refill of [...] uptitrate dose. 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 PHQ 9 score 22. will add buspar 1.24 - see above Viral uppe r respiratory tract infection [id number] J06.9 x 4-5 days, better past 1-2 days as per pt - cont prn supportive care Renal diso rder due to type 2 diabetes mellitus 744153468 E11.22 better control of sugars lately - [...] 1.24 - check labs ac next ov [id number] Jose Alfredo Quinn MD Main Office [address] [facility] [address] [place] [address] 09/26/2023 12:51:31 09/26/2023 13:39:19 Renal disorder due to type 2 diabetes mellitus 361618396 E11.22 better control of sugars lately - [...] EC Body mass index 30+ - obesity 298368919 E66.01 Z68.37 Pt has lost add'l wt - diet > exercise, cont hawthorn extract 11.23 - rec increase sleep, exercise, better diet (low carb) 3.24 - has lost > 15 lbs recently - cont diet/suppl ements, encouraged increased exercise Fatigue 35676508 R53.83 Z00.00 Hyperlipidemia 91596800 E78.5 Z00.00 FASTING if trigs remain elevated then consider krill oil in addition to statin Chronic ki dney disease stage 1 108432175 N18.1 197224 Jose Alfredo Quinn MD Main Office [address] [facility] [address] [place] [address] 03/03/2024 14:03:45 03/03/2024 15:06:43 Anxiety disorder [id number] F41.9 severe on rafa - ? agoraphobi [...] agoraphobi a - encouraged pt to call [facility] 12.22 - stable, pt requests refill of [...] uptitrate dose. 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 - congratula sierra him on setting this up and encouraged him to go do the best he can on it - wished him well 1.24 - he didn't take pharmacy clinical coordinator test last month, has pending apptmt c ma rehab worker tomorrow to help c job training/c melecio called a few therapy places, including [facility] - awaiting call backon a waiting list for new housing - problems c navain creased buspar seems to have helped him to remain calm in a stressful situation c his landlord - cont meds as dir 8.24 - pt states ran out of buspar so will refill for himless stress lately - looking into working c his sister - cooking/ch efno see therapist Major depr essive disorder [id number] F32.2 just recently sent updated rx for wellbutrin - hasn't started yet - urged him to do so (qd initially then increase to bid as godron)6.23- Taking Wellbutrin with no improvemen t. PHQ 9 score 22. will add buspar 1.24 - see above 8.24 - will refill Chronic ki dney disease stage 1 625392447 N18.1 Hypertensi ve renal disease 90375128 I12.9 bp stable, cont meds as dir Renal diso rder due to type 2 diabetes mellitus 156153634 E11.22 better control of sugars lately - A1c stable at 6.2 despite ~ 40 lbs of wt gain - cont metformin as dir will get podiatry eval and eye evmarina 2.22 - no labs/ov in several [...] Body mass index 40+ - severely obese 191806941 E66.01 Z68.41 see dm abovegaine d wt recently, but motivated to ex more since is feeling better as of late Venereal d isease screening 252504111 Z11.3 pt requested testing [id number] Jose Alfredo Quinn MD Tele[facility] [address] [place] [address] 04/08/2024 14:23:04 04/08/2024 16:13:59 Anxiety disorder 890540504 F41.9 severe on rafa - ? agoraphobi [...] agoraphobi a - encouraged pt to call [facility] 12.22 - stable, pt requests refill of [...] uptitrate dose. 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 - congratula sierra him on setting this up and encouraged him to go do the best he can on it - wished him well 1.24 - he didn't take pharmacy clinical coordinator test last month, has pending apptmt 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 rehab worker 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 to help c job training/c melecio called a few therapy places, including [facility] - awaiting call backon a waiting list [...] is looking for a therapist ([facility] evaluated him, gave him a few options for a therapist) , see below Major depr essive disorder 703693201 F32.2 just recently sent updated rx for [...] rder due to type 2 diabetes mellitus 663492700 E11.22 better control of sugars lately - [...] - cont meds as dir Abnormal feces 211547667 R19.5 Vitamin D deficiency 347 73769 E55.9 [id number] Jose Alfredo Quinn MD Main Office [address] [place] [address] 11/20/2024 15:06:23 11/20/2024 16:37:24 Adult health examination 642605311 Z00.00 Gastroesop hageal reflux disease 770647645 K21.9 cont ppi as dir by gi Anxiety disorder F41.9 severe on rafa - [...] agoraphobi a - encouraged pt to call [facility] 12.22 - stable, pt requests refill of [...] uptitrate dose. 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 - congratula sierra him on setting this up and encouraged him to go do the best he can on it - wished him well 1.24 - he didn't take pharmacy clinical coordinator test last month, has pending apptmt c [...] is looking for a therapist ([facility] evaluated him, gave him a few options for a therapist) , see below 5.25 - pending start seeing therapist soonrec increase buspar Major depr essive disorder 552074100 F32.2 just recently sent updated rx for wellbutrin - hasn't started yet - urged him to do so (qd initially then increase to bid as gordon)6.23- Taking Wellbutrin with no improvemen t. PHQ 9 score 22. 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 9 H62.40 R ear Apnea 5004635 R06.81 combinatio n of obstructiv e and central - feeling much better as per pt - cont cpap, f/u c sleep med Chronic ki dney disease stage 1 642331310 N18.1 Hypertensi ve renal disease 56873540 I12.9 bp stable, cont meds as dir Mixed hyperlipidemia 267 925155 E78.2 rec low carb diet to help lower your trigs, cont statin as dir Venereal d isease screening 742889887 Z20.2 Z11.3 Z72.89 pt requested testing Fatigue 67027684 R53.83 Body mass index 40+ - severely obese 750580931 E66.01 Z68.41 see dm abovegaine d wt recently, but motivated to ex more since is feeling better as of late Health Concerns Section Related Observation LastModified by Organization Detai ls LastModified Time None Recorded Concern Status LastModified by Organization Details LastModified Time None Recorded Advance Directives Directive N: Payers Encounter Date Sequence Insurance Name Policy Number Policy Jeffries Covered Member ID Jeffries Member ID Guarantor Name 07/24/2023 2 [place] [facility] Ho Telles [id number] Ho Telles 07/24/2023 1 [facility] (MEDICARE REPLACEMENT/A DVANTAGE - HMO) [facility] Ho Telles [id number] Ho Telles 09/26/2023 2 [place] [facility] Ho Telles [id number] Ho Telles 09/26/2023 1 [facility] (MEDICARE REPLACEMENT/A DVANTAGE - HMO) [facility] Ho Telles [id number] Ho Telles 03/03/2024 2 [place] [facility] Ho Telles [id number] Ho Telles 03/03/2024 1 [facility] (MEDICARE REPLACEMENT/A DVANTAGE - HMO) [facility] Ho Telles [id number] Ho Telles 04/08/2024 2 [place] [facility] Ho Telles [id number] Ho Telles 04/08/2024 1 [facility] (MEDICARE REPLACEMENT/A DVANTAGE - HMO) [facility] Ho Vargas Elfego [id number] Ho Vargas [place]fego 11/20/2024 2 [place] [facility] Ho Jeanno [id number] Ho Vargas Elfego 11/20/2024 1 [facility] (MEDICARE REPLACEMENT/A DVANTAGE - HMO) [facility] Ho Jeanno [id number] Ho Vargas Elfego Notes Date Note Type Note Provider Name and Address Organization Details Recorded Time 07/24/2023 text/html TH for 1 month f /u anx/dep increased buspar c some help - appeared to be more calm when landlord was giving him a hard time c/o 4-5 days of feeling ill - cough, fatigue - nephew had flu, was exposed to him - nephew was hospitalized/better now taking coricidin hbp, feeling better past 2 days - no f/c, didn't use tyl or ibu Clary Lacy PA-C [address], [address], [facility] 07/24/2023 13:14:37 09/26/2023 text/html Diabetes F/URepo rted bypatient.Context:shyla cking feet regularly;not seeing eye doctor yearly;not taking aspirin daily Associated Symptoms:no dizziness; no increased thirst; no increased urination; no blurred vision; no numbness of feet;weight loss ( lbs) Francesca wei, [facility] 10/02/2023 14:03:13 03/03/2024 text/html Anxiety/Depressi onRep orted bypatient.Quality:sym ptoms improved Severity:denies suicidal ideations Context:major life stressors Associated Symptoms:denies homicidal ideations here for f/u visitfeeling better in general but still scored mod severe on rafa/phqno see therapisthas been looking for a job Clary Lacy PA-C [address] [address], [place], [address], [facility] 03/06/2024 13:07:04 04/08/2024 text/html Anxiety/Depressi onRep orted bypatient.Quality:sym ptoms improved Severity:denies suicidal ideations Context:major life stressors Associated Symptoms:denies homicidal ideations here for f/u visitfeeling better in general but still scored mod severe on rafa/phqno see therapisthas been looking for a job 9.24 - [employer] sent someone to his home for an eval - offered a few choices for therapists to see, pending choose one Clary Lacy PA-C [address] [facility] [address], [place], [address], [facility] [place] 04/08/2024 15:54:28 11/20/2024 text/html Medicare Annual Wellness VisitReported bypatient.Diet and Nutrition:high carbohydrate meals; discussed vitamin and supplement use; discussed portion control; discussed diet improvement Fracture Risk:no recent explained fracture; no sudden unexplained fractures;history of fractures(broken wrist at 7yo);previous musculoskeletal injuries Physical Activity:decreased physical activity;poor physical condition;decondition ed due to sedentary lifestyle; discussed weightbearing activities; discussed exercise habits Depression Risk:feels sad, empty, or tearful(sometimes);lo ss of interest in activities;significan t changes in weight;sleep disturbances or insomnia;loss of energy;feelings of worthlessness or guilt;history of mood disorders(ADHD, PTSD, and anxiety);history of depression Concentration and Memory:decreased concentrating ability(sometimes) Hearing:no loss of hearing Vision:no vision problems Instrumental Activities of Daily Living:able to do house work with limited or no assistance Falls Risk Assessment:no frequent falls while walking Here for annual wellness visit. Pt is not been able to go out much, feels closed off and doesn't feel motivated to engage in physical exercise or eat healthy. Has been feeling more depressed and hasn't been able to see a therapist or psychiatrist. He desires to become more physically active and eat better but is unable to do so due to his depression. Whenever he feels anxious or depressed he eats more. Clary Lacy PA-C [address] [facility] [address], [place], [address], [facility] 11/20/2024 17:15:40
== END ==
LOC: HO.SL 20:30
PROVIDERS: PCP Physician Assistant Medical; Visit Provider Physician Assistant Medical
DX: G47.33 Obstructive sleep apnea (adult) (pediatric) (principal)
CPT/HCPCS: 95811

== ENCOUNTER 2025-05-12 10:31 | Outpatient (AMB) | payer MEDICARE, MEDICAID, SELFPAY ==
--- NOTE | 2025-05-12 10:45 | MHC.OFFVIS ---
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 The patient presents for evaluation of abnormal thyroid function. The thyroid workup was initiated due to a combination of family history (mother and aunt with thyroid disease, although no clear if family history of thyroid cancer), and the patient?s own symptoms, including intermittent neck swelling over the past 4?5 years, difficulty losing weight, persistent fatigue, and subjective intolerance to heat (with some irritability and hot flashes). The patient also reports occasional palpitations and hand tremors, both of which have been present intermittently for over a year, but are less frequent now. There is no history of significant weight loss; rather, the patient has had difficulty losing weight and has remained at a stable weight for some time. The patient denies significant dysphagia, though occasionally needs to swallow multiple times with solids. There is no history of neck radiation exposure. The patient has not previously had thyroid function tests until recently. She is taking a vitamin supplement containing vitamin K and D, and possibly iodine, but is not taking biotin or other supplements known to interfere with thyroid assays. On review of prior labs, TSH was slightly abnormal, but TPO and thyroglobulin antibodies were negative. Thyroid ultrasound (performed at an outside facility) showed no nodules and only mild asymmetry in gland size, with overall volumes within normal limits. No significant enlargement or suspicious features were noted. The patient?s symptoms are not clearly consistent with either overt hyperthyroidism or hypothyroidism, and there is no evidence of thyroid eye disease. Physical exam General: Well appearing. NAD. Neck/Thyroid: Thyroid not palpable, no nodules. Eyes: No conjunctival injection, not lid lag or proptosis CV: RRR, no murmur. No edema. Resp:Lungs clear to auscultation bilaterally Abdomen: Soft, nontender. nondistended Extremities/Neuro: No weakness or tremor of outstretched hands Labs Imaging Patient had an ultrasound done on 04/20/2025, which I was able to see through his phone and showed that there is no evidence of thyroid nodules although gland might look slightly increased. We will obtain records to get this ultrasound to his records here. [facility] Medical History Apnea Chronic kidney disease, stage 1 Hematochezia GERD (gastroesophageal reflux disease) Temporomandibular joint (TMJ) pain Hemorrhoid Hypertensive renal disease Insomnia Drug abuse Tobacco dependence Panic disorder with agoraphobia Anxiety disorder Major depressive disorder Morbid obesity Mixed hyperlipidemia Renal disorder Onychomycosis of toenail Surgical History H/O esophagogastroduodenoscopy H/O colonoscopy Family History (Updated 05/12/25 @ 10:51 by LUZ ELENA Williamson) Father History of diabetes mellitus, type II Mother Hyperparathyroidism History of diabetes mellitus, type II Maternal Aunt Thyroid disease Social History (Updated 05/12/25 @ 10:51 by LUZ ELENA Williamson) Alcohol intake: current Alcohol intake frequency: holidays/special occasions only Patient Tobacco Use Status: Current everyday Tobacco user Physical Exam Vital Signs: Last Vital Signs Pulse 81 05/12/25 10:46 BP 120/82 05/12/25 10:46 Pulse Ox 96 05/12/25 10:46 Oxygen Delivery Method Room Air 05/12/25 10:46 BMI result Body Mass Index 41.9 Assessment & Plan Assessment & Plan (1) Subclinical hyperthyroidism: Code(s): E05.90 - Thyrotoxicosis, unspecified without thyrotoxic crisis or storm Category: Medical Plan: Symptoms are nonspecific and do not clearly indicate overt hyper- or hypothyroidism. TSH slightly abnormal on initial testing; TPO and thyroglobulin antibodies negative. Thyroid ultrasound: no nodules, mild asymmetry, overall slightly enlarged thyroid gland. No evidence of compressive symptoms or significant dysphagia. Plan: Repeat thyroid function tests (TSH, free T4, TSI) to confirm abnormality and rule out lab error. If repeat testing is abnormal, consider more specialized testing (e.g., thyroid uptake scan). Continue to monitor for development of new symptoms (palpitations, weight changes, heat/cold intolerance, neck swelling). Request outside thyroid ultrasound report for documentation and review. Educate patient regarding the benign nature of mild gland asymmetry and the low likelihood of malignancy in the absence of nodules or suspicious features. Plan 35 minutes minutes spent reviewing previous records, labs, imaging, education and documenting in the chart Orders: Orders TSH reflex Free T4 Today E05.90 - Thyrotoxicosis, unspecified without thyrotoxic crisis or storm Triiodothyronine T3 Total Today E05.90 - Thyrotoxicosis, unspecified without thyrotoxic crisis or storm Thyroid Stimulating Immunoglob Today E05.90 - Thyrotoxicosis, unspecified without thyrotoxic crisis or storm Coding Level of Care Code New Pt Level 4 (25531) Diagnoses Subclinical hyperthyroidism E05.90
[2025-05-12 10:46] VITALS: BP 120/82; PULSE 81; O2SAT 96; BMI 41.9
--- OUTSIDE RECORDS SUMMARY | 2025-05-12 13:08 | XMS_ITS ---
Author Name Elia Espinal APRN Address [address] [place] [address] Phone [phone] Organization [facility] Care Team Providers Care Content Production Specialist Name Role Phone Dior Espinal Unavailable [phone] Reason for Referral Not Available Allergies, adverse reactions, alerts No known allergies Problem List Problem Status Onset Date Resolved Date Synopsis Morbid obesity Active 2024-06-15 N/A N/A Screening for colorectal cancer Active 2024-06-15 N/A N/A Type 2 diabetes mellitus with diabetic nephropathy, without long-term current use of insulin Active 2024-06-15 N/A Meds: metforminL ast A1C: BP: TAINA/ARB: YesSTATIN: YesOptometrist:Camera Systems Engineer:BUN /CR/GFR:UA micro: Average BGs: CGM or BG monitor: Advised to monitor feet carefully for any ulcers, wounds, soresAdvised to wear closed feet shoes Advised annual eye exam unless advised earlier by specialist Advised to monitor BG at homeAdvised to avoid high sugar, high carb, high starchy foods and exercise F/U with provider as advised HTN (hypertension) Active 2024-06-15 N/A lisino pril/HCTZBPReport persistent reading of 140/90 or above Depression Active 2024-06-15 N/A buproprion, bu spar, ativan no recordsstableno si/hi Social History Sex Male Functional Status No Information Mental Status No Information Assessments Not Available Plan of Care Not Available
--- OUTSIDE RECORDS SUMMARY | 2025-05-12 13:09 | XMS_ITS | Clinical Summary ---
Author Organization [address] [place] [address] [place] [phone] Phone Care Team Providers Care Sales Warehouse Driver Name Role Phone Warren Lacy [facility] [...] of the bottom and top of feet 2 Active lisinopriL (PRINIVIL,ZESTRI L) 20 mg tablet [...] Encounters Date Type Department Care Team Description 04/22/2025 10:42 AM EDT - 04/22/2025 11:59 PM EDT Hospital Encounter [facility] Ultrasound [address] [place] [address] Thyrotoxicosis without thyroid storm, unspecified thyrotoxicosis type Discharge Disposition: Home or Self Care from Last 3 Months Medical History Medical History Date Comments Renal disorder 05/11/2022 DX:Renal disorde r Mixed hyperlipidemia 05/11/2022 DX:Mixed hy perlipidemia Obesity 05/11/2022 DX:Obesity Major depressive disorder 05/11/2022 DX:Jesse or depressive disorder Anxiety 05/11/2022 DX:Anxiety Social History Tobacco Use Types Packs/Day Years Used Date Smoking Tobacco: Never Assessed Sex and Gender Information Value Date Recorded Sex Assigned at Male 04/26/2025 7:03 PM EDT Legal Sex Male 1:02 AM EST Gender Identity Male 04/26/2025 7:03 PM EDT Sexual Orientation Lesbian or Nesbitt 04/26/2025 7: 03 PM EDT Obstetrics History Last Filed Vital Signs Vital [...] Care Team (Late st Contact Info) Description 06/19/2025 10:45 AM EST Office Visit Orthopedic Surgery - [place] [address] [facility] [address] [place] [address] Martinez, Christopher M, [address] [phone] Health Maintenance Due Date Last Done Comments Colorectal Cancer Screening: Colonoscopy 1977 Diabetes: Annual Foot Exam 1987 Diabetes: Annual Retina Eye Exam 1987 Hepatitis B Vaccines (1 of 3 - 19+ 3-dose series) 1996 Pneumococcal Vaccine: Pediatrics (0 to 5 Years) and At-Risk Patients (6 to 49 Years) (1 of 2 - PCV) 1996 Cholesterol Screening (Lipid Panel) 08/11/2022 HIV Screening 08/11/2022 Hepatitis C Screening 08/11/2022 Medicare Annual Wellness Visit 08/11/2022 Social Influencers of Health Screening 08/11/2022 Diabetes: Annual GFR (Glomerular Filtration Rate) 05/18/2023 05/18/2022 Depression Screening 07/16/2024 COVID-19 Vaccine (1 - 2023-2 5 season) 2025 Influenza Vaccine (#1) 2025 7, 03/11/2012 Diabetes: Annual Urine Albumin-Creatinine Ratio (uACR) 04/22/2025 Diabetes: Blood Sugar Contro l Test (HGBA1C) 04/22/2025 Hypertension/CHF/CAD Annual BMP Blood Test 04/22/2025 05/18/2022 DTaP,Tdap,and Td Vaccines (3 - Td or Tdap) 10/24/2028 10/24/2018, 12/30/2008 RSV Immunization Adult Patients (1 - 1-dose 75+ series) 2052 HIB Vaccines Aged Out No longer eligi [...] Procedure Name Priority Date/Time Associated Diagnosis Comments US HEAD NECK SOFT TISSUE Routine 04/22/2025 10:56 AM EDT Thyrotoxicosis without thyroid storm, unspecified thyrotoxicosis type ANNUAL BMP BLOOD TEST Routine 05/18/2022 from Last 3 Months or Most Recently Relevant to Health Maintenance Results * US Head Neck Soft Tissue (04/22/2025 10:56 AM EDT) Anatomical Region Laterality Modality Head and Neck Ultrasound 04/27/2025 11:1 8 AM EDT Impressions 04/27/2025 11:21 AM EDT Mild enlargement of the thyroid gland. Otherwise, normal examination. Code 12141 -------- FINAL REPORT -------- Dictated By: Naveen Gan Dictated Date: 04/27/2025 11:18 ET Assigned Physician: Naveen Gan Reviewed and Electronically Signed By: Naveen Gan Signed Date: 04/27/2025 11:21 ET Workstation ID: [id number] Transcribed By: Self Edit Transcribed Date: 04/27/2025 11:18 ET Narrative 04/27/2025 11:21 AM EDT HISTORY: The patient is a 50-year-old male with thyrotoxicosis. FINDINGS: Real-time ultrasonography of the thyroid gland is performed. The thyroid is mildly enlarged, with the right lobe measuring 5.1 x 2.4 x 2.6 cm and the left lobe measuring 5.1 x 2.3 x 2.2 cm. The isthmus measures 4.8 mm in thickness. Thyroid echotexture is normal. No thyroid nodule or other mass lesion is seen. Procedure Note Naveen Gan MD - 04/27/2025 HISTORY: The patient is a 50-year-old male with thyrotoxicosis. FINDINGS: Real-time ultrasonography of the thyroid gland is performed. Thethyroid is mildly enlarged, with the right lobe measuring 5.1 x 2.4 x 2.6cm and the left lobe measuring 5.1 x 2.3 x 2.2 cm. The isthmus measures4.8 mm in thickness. Thyroid echotexture is normal. No thyroid nodule orother mass lesion is seen. IMPRESSION: Mild enlargement of the thyroid gland. Otherwise, normal examination. Code 64842 -------- FINAL REPORT -------- Dictated By: Naveen Gan Dictated Date: 04/27/2025 11:18 ET Assigned Physician: Naveen Gan Reviewed and Electronically Signed By: Naveen Gan Signed Date: 04/27/2025 11:21 ET Workstation ID: [id number] Transcribed By: Self Edit Transcribed Date: 04/27/2025 11:18 ET us Warren SCHULER IMG US PROCEDURES Final Resu lt * Annual BMP Blood Test (05/18/2022) Pathologist [facility] Annual BMP Blood Test abstracted us Historical Provider HEALTH MAINTENANCE Final Result from Last 3 Months or Most Recently Relevant to Health Maintenance Insurance MEDICAID - [place] [employer] MEDICARE Care Teams Sales Warehouse Driver Relationship Specialty Start Date End Date Warren Lacy PA [address] [phone] PCP - General Internal Medicine 04/19/22
== END 2025-05-12 11:23 | disposition home or self-care (01) ==
LOC: HO.ENCR 10:32
PROVIDERS: PCP Physician Assistant Medical; Visit Provider Student in an Organized Health Care Education/Training Program
DX: E05.90 Thyrotoxicosis, unspecified without thyrotoxic crisis or storm (principal)
CPT/HCPCS: 99204

== ENCOUNTER → 2025-05-12 10:31 | Outpatient (BNVA) | payer OTHER, SELFPAY | PROVIDERS: PCP Physician Assistant Medical; Visit Provider Student in an Organized Health Care Education/Training Program | DX: E05.90 Thyrotoxicosis, unspecified without thyrotoxic crisis or storm (principal); F17.210 Nicotine dependence, cigarettes, uncomplicated | CPT/HCPCS: 99202 ==

== ENCOUNTER 2025-06-15 10:13 | Outpatient (REF) | payer MEDICARE, SELFPAY ==
[2025-06-15 12:37] LABS: Free T4 (Free Thyroxine) 1.12 ng/dL (0.71-1.85)
--- OUTSIDE RECORDS SUMMARY | 2025-06-15 12:38 | XMS_ITS | Continuity of Care Document ---
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 Plan of Treatment Reminders Order Date Submit Date Provider Last Modified By Organization Details Last Modified Time Details Appointments PE EST 2024 11:00A M Warren Morales PA-C Not available Not available Not available Lab CMP, serum or plasma 2024 025 SRUTHI [facility] (Centralized Electronic Ordering - All Locations), Patient Can Go To The Location Of Their Choice, [address] 04/09/2025 16:06:29 Hepatitis C IgG Ab, qual, serum 2024 025 SRUTHI [facility], [address] [place], [address], 04/09/2025 16:06:31 HBsAg (hepatiti s B surface Ag), EIA, serum 2024 025 SRUTHI [facility], [address] [place], [address], 04/09/2025 16:06:35 HIV 1 + 2, meaningfu l use set 2024 025 SRUTHI [facility], [address], [place], [address], 04/09/2025 16:06:33 treponema pallidum IgG + IgM Ab, QL, IA, serum 2024 025 SRUTHI [facility] (Centralized Electronic Ordering - All Locations), Patient Can Go To The Location Of Their Choice, 04/09/2025 16:06:33 CT + NG RNA, PCR, unspecifi ed specimen 2024 025 SRUTHI [facility] (Centralized Electronic Ordering - All Locations), Patient Can Go To The Location Of Their Choice, 04/09/2025 16:06:30 hepatitis B core IgM Ab, qual, serum or plasma 2024 025 SRUTHI [facility] (Centralized Electronic Ordering - All Locations), Patient Can Go To The Location Of Their Choice, 04/09/2025 16:06:36 HbA1c (hemoglob in A1c), blood 2024 025 SRUTHI [facility] (Centralized Electronic Ordering - All Locations), Patient Can Go To The Location Of Their Choice, 04/09/2025 16:06:32 vitamin D, 25-hydrox y, total, serum 2024 [facility] [address], [place], [address], 04/09/2025 16:06:32 Referral diabetic ophthalmo logy referral 2024 025 [email or web address] [facility], [address], [place], [address], 04/08/2025 12:00:02 nutrition ist/dieti joby referral 2024 025 [email or web address] Not available 04/08/2025 11:59:38 infectiou s disease specialis t referral - intereste d in PrEP 2024 025 KASHMIR Costa MD, [address] [place] [address] [place], [address], 05/12/2025 15:03:00 Procedures None recorded. Surgeries None recorded. Imaging None recorded. Medication Orders Ozempic 0.25 mg or 0.5 mg (2 mg/3 mL) subcutane ous pen injector [address] [id number], [address] [facility], [place], [address], 04/08/2025 11:39:04 Patient Targets Encounter Date Encounter Id Patient Goals Patient Target Last Modified By Organization Details Last Modified Time 04/08/2025 [id number] Ongoing of Microalbumin/Cre atinine Ratio yearly Not [...] reflect progress toward goal. [email or web address] Not available 04/08/2025 17:37:25 Patient Instructions Encounter Date Encounter Id Patient Instructions Last Modified By Organization Details Last Modified Time 04/08/2025 [id number] Starting a Weight-Loss Plan: Care Instructions [email or web address] Not available 04/08/2025 11:39:02 Nutrition Referral and Weight Management Follow-up Information [email or web address] Not available 04/08/2025 11:39:03 Medications (OTC, herbal therapies, supplements) reviewed and reconciled with patient and or caregiver, including potential side effects, drug interactions, instructions, and the consequences of not taking medication. Reviewed potential barriers to medication adherence, such as side effects from medication or cost of medication. 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 Body mass index 40+ - severely obese Referring Physician: Warren Morales, Internal Medicine, Encounter Date: 04/08/2025 Diabetic Ophthalmology Refer ral for Renal disorder due to type 2 diabetes mellitus Referring Physician: Warren Morales, Internal Medicine, Encounter Date: 04/08/2025 Infectious Disease Specialis t Referral for High risk homosexual behavior interested in PrEP Referring Physician: Warren Morales, Internal Medicine, Encounter Date: 04/08/2025 Results Created Date Observation Date Name Description Value Unit Range Abnormal Flag Note LastModifiedBy Organization Detail LastModifiedTime 04/08/2004/09/2025 TSH+F REE T4 TSH 0.273 uIU/m L 0.450- 4.500 below low normal Not Available [facility] ([facility]) [address] [place], [address], 04/09/2025 16:06:28 04/08/2004/09/2025 TSH+F REE T4 T4,free(dire ct) 1.57 NG/dL 0.82-1 .77 normal Not Available [facility] ([facility]) [address] [place], [address], 04/09/2025 16:06:28 04/08/20 25 04/08/2025 COMP. METAB OLIC PANEL (14) interpretati on: Commen t GFR estim ate at the follo wing level for >or=3 month s is class ified as follo ws: GFR WITH KIDNE Y DAMAG E WITHO UT KIDNE Y DAMAG E >or=9 0 Stage 1 Dawna l 60-89 Stage 2 Decr eased GFR 30-59 Stage 3 Stage 3 15-29 Stage 4 Stage 4 <15 (or dialy sis) Stage 5 Stage 5 Estim ated GFR will over estim ate true GFR if serum creat inine is risin g as in acute renal failu re and will under estim ate true GFR if serum creat inine is decli thom as in resol ving acute renal failu re. Addit ional infor davin zhao may be found at www.k [email or web address]. org. Not Available [facility] ([facility]) [address] [place], [address], 04/09/2025 16:06:29 04/08/20 25 04/09/2025 COMP. METAB OLIC PANEL (14) glucose 120 mg/dL 70-99 above high normal Not Available [facility] ([facility]) [address] [place], [address], 04/09/2025 16:06:29 04/08/20 25 04/09/2025 COMP. METAB OLIC PANEL (14) BUN 12 mg/dL 6-24 normal Not Available [facility] ([facility]) [address] [place], [address], 04/09/2025 16:06:29 04/08/20 25 04/09/2025 COMP. METAB OLIC PANEL (14) creatinine 0.82 mg/dL 0.76-1 .27 normal Not Available [facility] ([facility]) [address] [place], [address], 04/09/2025 16:06:29 04/08/20 25 04/09/2025 COMP. METAB OLIC PANEL (14) eGFR 109 mL/mi n/1.7 3 >59 normal Not Available [facility] ([facility]) [address] [place], [address], 04/09/2025 16:06:29 04/08/20 25 04/09/2025 COMP. METAB OLIC PANEL (14) BUN/creatini ne ratio 15 9-20 normal Not Available [facility] ([facility]) [address] [place], [address], 04/09/2025 16:06:29 04/08/20 25 04/09/2025 COMP. METAB OLIC PANEL (14) sodium 139 mmol/ L 134-14 4 normal Not Available [facility] ([facility]) [address] [place], [address], 04/09/2025 16:06:29 04/08/20 25 04/09/2025 COMP. METAB OLIC PANEL (14) potassium 3.9 mmol/ L 3.5-5. 2 normal Not Available [facility] ([facility]) [address] [place], [address], 04/09/2025 16:06:29 04/08/20 25 04/09/2025 COMP. METAB OLIC PANEL (14) chloride 98 mmol/ L 96-106 normal Not Available [facility] ([facility]) [address] [place], [address], 04/09/2025 16:06:29 04/08/20 25 04/09/2025 COMP. METAB OLIC PANEL (14) carbon dioxide, total 21 mmol/ L 20-29 normal Not Available [facility] ([facility]) [address] [place], [address], 04/09/2025 16:06:29 04/08/20 25 04/09/2025 COMP. METAB OLIC PANEL (14) calcium 9.9 mg/dL 8.7-10 .2 normal Not Available [facility] ([facility]) [address] [place], [address], 04/09/2025 16:06:29 04/08/20 25 04/09/2025 COMP. METAB OLIC PANEL (14) protein, total 7.4 g/dL 6.0-8. 5 normal Not Available [facility] ([facility]) [address] [place], [address], 04/09/2025 16:06:29 04/08/20 25 04/09/2025 COMP. METAB OLIC PANEL (14) albumin 4.6 g/dL 4.1-5. 1 normal Not Available [facility] ([facility]) [address] [place], [address], 04/09/2025 16:06:29 04/08/20 25 04/09/2025 COMP. METAB OLIC PANEL (14) globulin, total 2.8 g/dL 1.5-4. 5 Not Available [facility] ([facility]) [address] [place], [address], 04/09/2025 16:06:29 04/08/20 25 04/09/2025 COMP. METAB OLIC PANEL (14) bilirubin, total 0.7 mg/dL 0.0-1. 2 normal Not Available [facility] ([facility]) [address] [place], [address], 04/09/2025 16:06:29 04/08/20 25 04/09/2025 COMP. METAB OLIC PANEL (14) alkaline phosphatase 82 IU/L 47-123 normal Ple ase note refer ence inter garrett iraheta e Not Available [facility] ([facility]) [address] [place], [address], 04/09/2025 16:06:29 04/08/20 25 04/09/2025 COMP. METAB OLIC PANEL (14) AST (SGOT) 24 IU/L 0-40 normal Not Available [facility] ([facility]) [address] [place], [address], 04/09/2025 16:06:29 04/08/20 25 04/09/2025 COMP. METAB OLIC PANEL (14) ALT (SGPT) 31 IU/L 0-44 normal Not Available [facility] ([facility]) [address] [place], [address], 04/09/2025 16:06:29 04/08/20 25 04/09/2025 CHLAM YDIA/ GC AMPLI FICAT ION chlamydia trachomatis, TAVO Negati ve negati ve Not Available [facility] ([facility]) [address] [place], [address], 04/09/2025 16:06:30 04/08/20 25 04/09/2025 CHLAM YDIA/ GC AMPLI FICAT ION neisseria gonorrhoeae, TAVO Negati ve negati ve Not Available [facility] ([facility]) [address] [place], [address], 04/09/2025 16:06:30 04/08/20 25 04/09/2025 HCV ANTIB YING RFX TO QUANT PCR HCV Ab Non Reacti ve non reacti ve Not Available [facility] ([facility]) [address] [place], [address], 04/09/2025 16:06:31 04/08/2004/09/2025 HCV ANTIB YING RFX TO QUANT PCR interpretati on: Commen t Not infec sierra with HCV unles s early or acute infec tion is suspe cted (whic h may be delay ed in an immun ocomp romis ed indiv idual ), or other evide nce exist s to indic ate HCV infec tion. Not Available [facility] ([facility]) [address] [facility], [place], [address], 04/09/2025 16:06:31 04/08/2004/09/2025 HEMOG LOBIN A1C hemoglobin A1C 6.8 % 4.8-5. 6 above high normal Predi abete s: 5.7 - 6.4 Diabe lizzy: >6.4 Glyce prudencio contr ol for adult s with diabe lizzy: <7.0 Not Available [facility] ([facility]) [address] [place], [address], 04/09/2025 16:06:32 04/08/2004/09/2025 VITAM IN D, 25-HY DROXY vitamin D, 25-hydroxy 20.7 NG/mL 30.0-1 00.0 below low normal Vitam in D defic iency has been defin ed by the Insti tute of Medic ine and an Endoc rine Socie ty pract ice guide line as a level of serum 25-OH vitam in D less than 20 ng/mL (1,2) . The Endoc rine Socie ty went on to furth er defin e vitam in D insuf ficie ncy as a level betwe en 21 and 29 ng/mL (2). 1. IOM (Inst itute of Medic ine). 2010. Dieta ry refer ence intak es for calci um and D. Mona gutierres [place]: The [facility] . 2. Sultana gomez MF, Rajan guevara NC, Lucien off-F elma i ISSA, et al. Evalu ation , treat ment, and preve ntion of vitam in D defic iency : an Endoc rine Socie ty clini gabino pract ice guide line. JCEM. 2010; 96(7) :1911 -30. Not Available [facility] ([facility]) [address] [facility], [place], [address], 04/09/2025 16:06:32 04/08/2004/09/2025 T PALLI DUM SCREE THOM CASCA DE T pallidum antibodies Non Reacti ve non reacti ve Not Available [facility] ([facility]) [address] [facility], [place], [address], 04/09/2025 16:06:33 04/08/2004/09/2025 HIV AB/P2 4 AG WITH REFLE X HIV Ab/P24 Ag screen Non Reacti ve non reacti ve HIV-1 /HIV- 2 antib odies and HIV-1 p24 antig en were NOT detec sierra. There is no labor atory evide nce of HIV infec tion. HIV Negat snehal Not Available [facility] ([facility]) [address] [facility], [place], [address], 04/09/2025 16:06:33 04/08/2004/09/2025 THYRO ID ANTIB ODIES thyroid peroxidase (tpo) Ab <9 IU/mL 0-34 Not Available [facility] ([facility]) [address] [facility], [place], [address], 04/09/2025 16:06:34 04/08/2004/09/2025 THYRO ID ANTIB ODIES thyroglobuli n antibody <1.0 IU/mL 0.0-0. 9 Thyro globu henry Antib ying measu red by Beckm an Coult er Metho dolog y It shoul d be noted that the prese nce of thyro globu henry antib odies may not be patho genic nor diagn ostic , espec ially at very low level s. The assay manuf actur er has found that four perce nt of indiv idual s witho ut evide nce of thyro id disea se or autoi mmuni ty will have posit snehal TgAb level s up to 4 IU/mL . Not Available [facility] ([facility]) [address] [place], [address], 04/09/2025 16:06:34 04/08/20 25 04/09/2025 HBSAG SCREE N HBsAg screen Negati ve negati ve Not Available [facility] ([facility]) [address] [place], [address], 04/09/2025 16:06:35 04/08/20 25 04/09/2025 TRIIO DOTHY SILVIO E (T3), FREE triiodothyro nine (T3), free 3.7 pg/mL 2.0-4. 4 normal Not Available [facility] ([facility]) [address] [place], [address], 04/09/2025 16:06:35 04/08/20 25 04/09/2025 HEP B CORE AB, IGM hep B core Ab, IgM Negati ve negati ve Not Available [facility] ([facility]) [address] [place], [address], 04/09/2025 16:06:36 04/27/20 25 04/22/2025 head neck soft tissu e See Note [facility] [place] , a member of [employer] Macy douglas Name: NARESH WEST Date of : 1974 Reason for Exam: THYROT OXICOS IS,UNS PECIFI ED Exam Date: 2024 [id number] EST Report Status : Final Orderi ng Provid er: CHIN MORALES PCP: CHIN MORALES HISTOR Y: The patien t is a 50-yea r-old male with thyrot oxicos is. FINDIN GS: Real-t jose ultras onogra phy of the thyroi d gland is perfor med. The thyroi d is mildly enlarg ed, with the right lobe measur ing 5.1 x 2.4 x 2.6 cm and the left lobe measur ing 5.1 x 2.3 x 2.2 cm. The isthmu s measur es 4.8 mm in thickn ess. Thyroi d echote xture is normal . No thyroi d nodule or other mass lesion is seen. IMPRES [place]: Mild enlarg ement of the thyroi d gland. Otherw ise, normal examin ation. Code 74456 ------ -- FINAL REPORT ------ -- Dictat ed By: Naveen Burroughs Dictat ed Date: 2024 11:18 ET Assign ed Physic ngozi: Naveen Burroughs Review ed and Electr onical ly Signed By: Naveen Burroughs Signed Date: 2024 11:21 ET Workst ation ID: [id number] Transc ribed By: Self Edit Transc ribed Date: 2024 11:18 ET [facility] [address] [place] [address], [facility], [address], 04/27/2025 16:00:48 Result Notes None recorded. Problems Name Problem SNOMED Code Status Onset Date Resolution Date Notes Provider Name and Address Organization Details Recorded Time Depressi ve disorder 21067082 Completed 03/05/2022 Warren Morales PA-C [address] [facility] [address], [place], [address] , [facility] 2 21:05:23 Administ ration of bacteria l and viral vaccine Completed 200802/03/2014 RECORDED 12/31/19 09 2:17PM BY TONYA ADAMES, OFFICE VISIT Not Available Count includes the [facility] 4 15:13:47 Administ ration of bacteria l and viral vaccine Completed 200802/23/2014 RECORDED 12/31/19 09 2:17PM BY TONYA ADAMES, OFFICE VISIT Not Available [facility] 4 06:00:27 Cellulit is and abscess of buttock 845381741 Completed 201102/03/2014 RECORDED 01/26/20 12 9:03AM BY MAGNUS SIDDIQUI MA, ANNOTATI ON/ADDEN DUM Not Available [facility] 4 15:13:47 Chest pain 30524828 Completed 201102/03/2014 RECORDED 01/26/20 12 9:03AM BY MAGNUS ISDDIQUI MA, ANNOTATI ON/ADDEN DUM Not Available [facility] 4 15:13:47 Exposure to organism Completed 201102/03/2014 RECORDED 01/26/20 12 9:03AM BY MAGNUS SIDDIQUI MA, ANNOTATI ON/ADDEN DUM Not Available [facility] 4 15:13:47 Noninfec tious gastroen teritis 65342832 Completed 201102/03/2014 RECORDED 01/26/20 12 9:03AM BY MAGNUS SIDDIQUI MA, ANNOTATI ON/ADDEN DUM Not Available [facility] 4 15:13:47 Internal hordeolu m 617001231 Completed 201102/03/2014 RECORDED 01/26/20 12 9:03AM BY MAGNUS SIDDIQUI MA, ANNOTATI ON/ADDEN DUM Not Available [facility] 4 15:13:47 Pure hypercho lesterol emia 370134619 Completed 201102/03/2014 RECORDED 01/26/20 12 9:03AM BY MAGNUS SIDDIQUI MA, ANNOTATI ON/ADDEN DUM Not Available [facility] 4 15:13:47 High risk sexual behavior 850988767 Completed 201102/03/2014 RECORDED 01/26/20 12 9:03AM BY MAGNUS SIDDIQUI MA, ANNOTATI ON/ADDEN DUM Not Available [facility] 4 15:13:47 Adult health examinat ion Completed 201102/03/2014 RECORDED 01/26/20 12 9:03AM BY MAGNUS SIDDIQUI MA, ANNOTATI ON/ADDEN DUM Not Available [facility] 4 15:13:47 Cellulit is and abscess of buttock 642694588 Completed 201102/23/2014 RECORDED 01/26/20 12 9:03AM BY MAGNUS SIDDIQUI MA, ANNOTATI ON/ADDEN DUM Not Available [facility] 4 06:00:27 Chest pain 72224949 Completed 201102/23/2014 RECORDED 01/26/20 12 9:03AM BY MAGNUS SIDDIQUI MA, ANNOTATI ON/ADDEN DUM Not Available [facility] 4 06:00:27 Exposure to organism Completed 201102/23/2014 RECORDED 01/26/20 12 9:03AM BY MAGNUS SIDDIQUI MA, STEPHY ON/ADDEN DUM Not Available [facility] 4 06:00:27 Noninfec tious gastroen teritis 56752807 Completed 201102/23/2014 RECORDED 01/26/20 12 9:03AM BY MAGNUS SIDDIQUI MA, ANNOTATI ON/ADDEN DUM Not Available [facility] 4 06:00:27 Internal hordeolu m 715091104 Completed 201102/23/2014 RECORDED 01/26/20 12 9:03AM BY MAGNUS SIDDIQUI MA, ANNOTATI ON/ADDEN DUM Not Available [facility] 4 06:00:27 Pure hypercho lesterol emia 667095783 Completed 201102/23/2014 RECORDED 01/26/20 12 9:03AM BY MAGNUS SIDDIQUI MA, ANNOTATI ON/ADDEN DUM Not Available [facility] 4 06:00:27 High risk sexual behavior 063351497 Completed 201102/23/2014 RECORDED 01/26/20 12 9:03AM BY MAGNUS SIDDIQUI MA, ANNOTATI ON/ADDEN DUM Not Available [facility] 4 06:00:27 Adult health examinat ion Completed 201102/23/2014 RECORDED 01/26/20 12 9:03AM BY MAGNUS SIDDIQUI MA, ANNOTATI ON/ADDEN DUM Not Available [facility] 4 06:00:27 Influenz a vaccine needed 98709397349 06 Completed 201102/03/2014 RECORDED 03/11/20 12 8:38AM BY SAMARA ACUÑA I, OFFICE VISIT Not Available Count includes the [facility] 4 15:13:47 Influenz a vaccine needed 66144821247 06 Completed 201102/23/2014 RECORDED 03/11/20 12 8:38AM BY SAMARA ACUÑA I, OFFICE VISIT Not Available [facility] 4 06:00:27 Anxiety disorder 896311523 Active 2011 Jael wei, [facility] 7 14:34:39 Recurren t major depressi ve episodes , in full remissio n Completed 201103/05/2022 Warren Morales PA-C [address] [address], [facility] [place], [address] , [facility] 2 21:05:57 Malaise and fatigue 426622987 Completed 201102/03/2014 IMPRESSI ON: LONG HX OF [...] RECORDED 04/02/20 12 7:43AM BY SAMARA ACUÑA I ANNOTATI ON/ADDEN DUM Not Available Count includes the [facility] 4 15:13:47 Insomnia 366117630 Active 2011 Jael wei, [facility] 7 14:34:35 Drug abuse 02632291 Active 2011 Jael wei, [facility] 7 14:34:41 Tobacco dependen ce syndrome 09111234 Active 2011 Jael wei, [facility] 7 14:34:51 Malaise and fatigue 353693901 Completed 201102/23/2014 IMPRESSI ON: LONG HX OF [...] RECORDED 04/02/20 12 7:43AM BY STEPHY THOMASON ON/MARQUES DUM Not Available [facility] 4 06:00:27 Uncontro lled type 2 diabetes mellitus 148540179 Completed 201602/22/2021 Warren Morales PA-C [address] [address], [place], [address] , [facility] 1 09:53:48 Morbid obesity 783960241 Active 2018 Francesca Maradiagaromy wei, [facility] 9 12:00:00 Mixed hyperlip idemia 151141065 Active 2019 Warren Morales PA-C [address] [address], [place], [address] , [facility] 0 09:34:08 Chronic kidney disease stage 1 146802836 Active 2019 Warren Morales PA-C [address] [facility] [address], [place], [address] , [facility] 0 09:31:45 Snoring 61017077 Completed 201901/26/2021 Warren Morales PA-C [address] [facility] [address], [place], [address] , [facility] 1 09:10:30 Apnea 6433125 Active 2020 Warren Morales PA-C [address], [place], [address] , [facility] 1 09:50:11 Hyperten sive renal disease 59462587 Active 2020 Francesca Maradiaga eriberto, [facility] 1 13:20:47 Chronic kidney disease due to type 2 diabetes mellitus 00504968621 8 Completed 202003/01/2022 Warren Morales PA-C [address], [place], [address] , [facility] 2 13:17:09 Renal disorder due to type 2 diabetes mellitus 013705187 Active 2020 Warren Morales PA-C [address], [place], [address] , [facility] 1 09:56:16 Hematoch ezia 868117675 Active 2020 Warren Morales PA-C [address], [place], [address] , [facility] 1 09:58:18 Gastroes ophageal reflux disease 990571436 Active 2021 Warren Morales PA-C [address] [facility] [address], [place], [address] , [facility] 2 15:09:48 Onychomy cosis of toenails 620360903 Active 2021 Warren Morales PA-C [address], [place], [address] , [facility] 2 13:41:30 Major depressi ve disorder 520273044 Active 2021 Warren Morales PA-C [address], [place], [address] , [facility] 2 21:02:30 Panic disorder with agorapho margot 83442206 Active 2021 Warren Morales PA-C [address], [place], [address] , [facility] 2 21:03:24 Hemorrho ids 45033973 Active 2022 Warren Morales PA-C [address], [place], [address] , [facility] 3 15:33:28 Itching of lesion of skin 077548588 Active 2022 Warren Morales PA-C [address], [place], [address] , [facility] 3 10:35:49 Temporom andibula r joint disorder 44424855 Active 2022 Warren Morales PA-C [address], [place], [address] , [facility] 3 13:25:07 Obstruct snehal sleep apnea syndrome 44112555 Active 2023 Warren Morales PA-C [address] [facility] [address], [place], [address] , [facility] 4 12:45:14 Abnormal feces 027418359 Active 2024 Enxhi Sorayaadia null, [facility] 5 16:09:45 Vitamin D deficien cy 70610125 Active 2024 Enxhi Ferraj null, [facility] 5 16:09:45 Otomycos is 58027740 Active 2024 Enxhi Sorayaadia null, [facility] 5 16:10:00 Subclini gabino hyperthy roidism 038223154 Active 2024 Warren Morales PA-C [address] [facility] [address], [place], [address] , [facility] 5 09:19:43 Problem Notes None recorded. Procedures Surgical History Date Name Laterality Status Provider Name and Address Organization Details Recorded Time 09/25 Diabetic Foot Exam (Monofilament) completed Warren Morales PA-C [address], [place], [address] , [facility] 4 13:31:37 04/26 esophagogastroduodenoscopy completed Bryce Todd [facility] 2 14:06:17 04/26 Colonoscopy completed Warren Morales PA-C [address], [place], [address] , [facility] 2 13:21:09 01/26 Diabetic Foot Exam (Monofilament) completed Malorie Mojica MA [facility] 1 08:57:24 05/27 Diabetic Foot Exam (Monofilament) cancelled Guillermina Howard MA [facility] 0 09:46:25 12/05 Diabetic Foot Exam (Monofilament) completed Deepthi Minaya [facility] 9 15:04:01 Imaging Results None recorded. Procedure Notes None recorded. Medical Equipment None Reported. Allergies Allergen ID Allergen Name Allergen Category Reaction Reaction Severity Criticality Documentation Date Start Date Code Code System Note Provider Name and Address Organization Details Recorded Time 80607 Celexa medicatio n Not available Not available Not available 01/27/20142011 21676 8 RxNorm Jael wei [facility] 7 14:42:34 46079 amlodipin e medicatio n chest pain other Not available Not available Not available 12/05/2018 19692 RxNorm diffi culty sleep ing CM Bansal [facility] 2 13:05:55 48908 citalopra m medicatio n Not available Not available Not available 04/22/2020 2556 RxNorm CM Rutledge [facility] 0 09:40:54 09662 Trulicity medicatio n other moderate low 02/13/2023 65733 96 RxNorm bloat ing/c onsti patio n Warren Morales PA-C [address] [facility] [address], [facility] [place], [phone], [facility] 3 10:03:50 Medications Name Sig Start Date [...] Not Available Not Available No t Available Abreva 10 % topical cream apply 5x/day until healed; Start: at 1st sign of sx; Max: 10 days 05/23 completed Not Available Not Available Not Available nicotine 14 mg/24 hr daily transderm [...] DAY IN THE MORNING FOR 90 DAYS. 2024 active Not Available Not Available Not Avai lable valacyclo vir 1 gram tablet TAKE 2 TABLETS BY MOUTH EVERY 12 HOURS FOR 1 DAY, SART SONIA AFTER SYMPTOM ONSET active prn Not Available Not Available No t Available [...] Available Not Available Not Available hydrocort isone acetate 25 mg rectal supposito ry Insert 1 supposit ory twice a day by rectal route as needed for 12 days. 12/28 completed Not Available Not Available Not [...] 02/10 completed RECORDED 03/11/20 11 10:56AM BY ZOFIA CAMACHO PA-C, MEDICATI ON AUTO-JENNIFER CTIVATIO N;APPLY THIN STRIP TO LEFT LOWER LID Not Available Not Available Not Available buspirone 10 mg tablet TAKE 1 TABLET BY MOUTH THREE TIMES A DAY active Not Available Not Available No t Available lisinopri l 10 mg tablet TAKE 1 TABLET(S ) EVERY DAY BY ORAL ROUTE FOR 90 DAYS. active Not Available Not Available No t Available clotrimaz ole 1 % topical solution APPLY TO AFFECTED AREA TWICE A DAY IN THE MORNING AND IN THE EVENING active Not Available Not Available No t [...] 03/09 completed RECORDED 05/06/20 09 9:28AM BY ZOFIA CAMACHO PA-C, MEDICATI ON AUTO-JENNIFER CTIVATIO N; [...] Not Available Not Available No t Available Rogaine Extra Strength for Men 5 % topical solution APPLY 1 MILLILIT ER BY TOPICAL ROUTE 2 TIMES PER DAY , EVERY DAY, DIRECTLY ONTO THE SCALP IN THE HAIR LOSS AREA 03/01 completed Not Available Not Available Not Available nicotine 7 mg/24 hr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
--- OUTSIDE RECORDS SUMMARY | 2025-06-15 12:38 | XMS_ITS | Data Portability ---
Author Organization [facility], Main Office Address [address] [facility] [address] [place] [id number] Care Team Providers Care Report Analyst Name Role Phone CLARY MORALES Primary Care Provider [phone] [facility] Manager Family ZHANE HODGE Terry Cloth Cutter Hand Assessment Encounter Date Assessment Date Assessment LastModified by Organization Details LastModified Time 04/08/2024 04/08/2024 This service was provided using telemedicine. Patient consented to telephone visit Patient was located in the [facility]. Provider was located in the office. No other persons participated in the telemedicine visit except for the patient unless otherwise indicated here. Total time of visit was 23 minutes. [email or web address] Not available 04/08/2024 15:52:16 Plan of Treatment Reminders Order Date Submit Date Provider Last Modified By Organization Details Last Modified Time Details Appointments PE EST 2024 11:00A M Clary Morales PA-C Not available Not available Not available Lab CMP, serum or plasma 2024 025 KeyCAPTCHA [facility] (Centralized Electronic Ordering - All Locations), Patient Can Go To The Location Of Their Choice, [id number] 04/09/2025 16:06:29 Hepati tis C IgG Ab, qual, serum 2024 025 SRUTHI [facility], [address] [place], [address], 04/09/2025 16:06:31 HBsAg (hepat itis B surfac e Ag), EIA, serum 2024 025 SRUTHI [facility], [address] [place], [address], 04/09/2025 16:06:35 HIV 1 + 2, meanin gful use set 2024 025 SRUTHI [facility], [address], [place], [address], 04/09/2025 16:06:33 trepon isaias pallid um IgG + IgM Ab, QL, IA, serum 2024 025 [facility] Patient Can Go To The Location Of Their Choice, [facility] 04/09/2025 16:06:33 CT + NG RNA, PCR, unspec ified specim en 2024 025 FALL[facility]IMBER [facility] Patient Can Go To The Location Of Their Choice, [facility] 04/09/2025 16:06:30 hepati tis B core IgM Ab, qual, serum or plasma 2024 025 [facility] Patient Can Go To The Location Of Their Choice, [id number] 04/09/2025 16:06:36 HbA1c (hemog lobin A1c), blood 2024 025 [facility] Patient Can Go To The Location Of Their Choice, [facility] 04/09/2025 16:06:32 vitami n D, 25-hyd lizz, total, serum 2024 025 SRUTHI [facility], [address], [place], [address], 04/09/2025 16:06:32 Hepati tis C IgG Ab, qual, serum 2024 025 [facility], [address], [place], [address], 12/11/2024 10:16:52 HBsAg (hepat itis B surfac e Ag), EIA, serum 2024 025 [email or web address] [facility], [address], [place], [address], 12/11/2024 10:16:52 HIV 1 + 2, meanin gful use set 2024 025 lmulerovalle [facility], [address], [place], [address], 12/11/2024 10:16:53 trepon isaias pallid um IgG + IgM Ab, QL, IA, serum 2024 025 [email or web address] [facility] ([facility] Ordering - All Locations), Patient Can Go To The Location Of Their Choice, 11/27/2024 14:16:42 CT + NG RNA, PCR, unspec ified specim en 2024 025 [email or web address] [facility] ([facility] Ordering - All Locations), Patient Can Go To The Location Of Their Choice, 11/27/2024 14:16:42 hepati tis B core IgM Ab, qual, serum or plasma 2024 025 [email or web address] [facility] ([facility] Ordering - All Locations), Patient Can Go To The Location Of Their Choice, 11/27/2024 14:16:42 TSH, ultra- sensit snehal, serum 2024 025 SRUTHI [facility] ([facility]ized Electronic Ordering - All Locations), Patient Can Go To The Location Of Their Choice, 12/16/2024 06:07:38 celiac diseas e serolo gy panel, serum 2024 025 SRUTHI [facility] ([facility] Ordering - All Locations), Patient Can Go To The Location Of Their Choice, 12/16/2024 06:07:34 lipid panel, serum 2024 025 SRUTHI [facility] ([facility] Ordering - All Locations), Patient Can Go To The Location Of Their Choice, 12/16/2024 06:07:35 CK (creat ine kinase ), total, serum 2024 025 SRUTHI [facility] ([facility] Ordering - All Locations), Patient Can Go To The Location Of Their Choice, 12/16/2024 06:07:39 CBC w/ auto diff 2024 025 SRUTHI [facility] ([facility]ized [facility] Ordering - All Locations), Patient Can Go To The Location Of Their Choice, 12/16/2024 06:07:34 HbA1c (hemog lobin A1c), blood 2024 025 SRUTHI [facility] ([facility] Ordering - All Locations), Patient Can Go To The Location Of Their Choice, 12/16/2024 06:07:37 microa lbumin /creat inine, mass ratio, urine 2024 025 SRUTHI [facility] ([facility] Ordering - All Locations), Patient Can Go To The Location Of Their Choice, 12/16/2024 06:07:36 CMP, serum or plasma 2024 025 SRUTHI [facility] ([facility] Ordering - All Locations), Patient Can Go To The Location Of Their Choice, 12/16/2024 06:07:35 vitami n D, 25-hyd lizz, total, serum 2024 025 SRUTHI [facility], [address], [place], [address], 12/16/2024 06:07:37 HbA1c (hemog lobin A1c), blood 2023 024 [email or web address] [facility] ([facility] Ordering - All Locations), Patient Can Go To The Location Of Their Choice, 12/01/2024 10:04:20 BMP, serum or plasma 2023 024 [email or web address] [facility] ([facility] Ordering - All Locations), Patient Can Go To The Location Of Their Choice, 12/01/2024 10:04:20 vitami n D, 25-hyd lizz, total, serum 2023 024 lmulerovalle [facility], [address], [place], [address], 07/07/2024 09:23:13 celiac diseas e serolo gy panel, serum 2023 [facility]ations), Patient Can Go To The Location Of Their Choice, 12/01/2024 10:04:20 HbA1c (hemog lobin A1c), blood 2023 SRUTHI [facility] ([facility] Ordering - All Locations), Patient Can Go To The Location Of Their Choice, 03/04/2024 18:05:55 CMP, serum or plasma 2023 SRUTHI [facility] ([facility]ized [facility] Ordering - All Locations), Patient Can Go To The Location Of Their Choice, 03/04/2024 18:05:53 microa lbumin /creat inine, mass ratio, urine 2023 SRUTHI [facility] ([facility] Ordering - All Locations), Patient Can Go To The Location Of Their Choice, 03/04/2024 18:05:54 Hepati tis C IgG Ab, qual, serum 2023 SRUTHI [facility] ([facility] Ordering - All Locations), Patient Can Go To The Location Of Their Choice, 03/04/2024 18:05:55 HBsAg (hepat itis B surfac e Ag), EIA, serum 2023 FALLENTIMBER [facility] ([facility]ized [facility] Ordering - All Locations), Patient Can Go To The Location Of Their Choice, 03/04/2024 18:05:57 HIV 1 + 2, meanin gful use set 2023 SRUTHI [facility] ([facility] Ordering - All Locations), Patient Can Go To The Location Of Their Choice, 03/04/2024 18:05:56 trepon isaias pallid um IgG + IgM Ab, QL, IA, serum 2023 024 SRUTHI [facility] ([facility] Ordering - All Locations), Patient Can Go To The Location Of Their Choice, 03/04/2024 18:05:56 CT + NG RNA, PCR, unspec ified specim en 2023 024 SRUTHI [facility] ([facility] Ordering - All Locations), Patient Can Go To The Location Of Their Choice, 03/04/2024 18:05:54 hepati tis B core IgM Ab, qual, serum or plasma 2023 024 SRUTHI [facility] ([facility] Ordering - All Locations), Patient Can Go To The Location Of Their Choice, 03/04/2024 18:05:57 lipid panel, serum 2023 024 SRUTHI [facility], [address], [place], [address], 09/28/2023 06:08:23 BMP, serum or plasma 2023 024 SRUTHI [facility], [address], [place], [address], 09/28/2023 06:08:22 Referral diabet ic ophtha lmolog y referr al 2024 025 [facility], [address], [place], [address], 04/08/2025 12:00:02 nutrit ionist /dieti joby referr al 2024 025 [email or web address] Not available 04/08/2025 11:59:38 infect ious diseas e specia list referr marina solitario in PrEP 2024 025 [email or web address] Gissel Costa MD, [address] [place] [address] [place], [address], 05/12/2025 15:03:00 nutrit ionist /dieti joby referr al 2024 025 [email or web address] Not available 11/20/2024 16:37:25 psychi atrist referr al - Medica tion consul tation with Robert Rosas MD 2024 025 frida Rosas MD, [address] [facility], [place], [address], 12/29/2024 11:07:55 psychi atrist referr al 2023 024 [email or web address] [facility], [address], [place], [address], 10/07/2024 11:50:06 nutrit ionist /dieti joby referr al 2023 024 [email or web address] Not available 03/04/2024 09:14:57 diabet ic ophtha lmolog y referr al 2023 024 frida Rajinder Justice [facility], [address] [facility], [place], [address], 11/26/2023 09:53:23 nutrit ionist /dieti joby referr al 2023 024 Not available 09/27/2023 11:05:50 Procedures None record ed. Surgeries None record ed. Imaging None record ed. Medication Orders Ozempi c 0.25 mg or 0.5 mg (2 mg/3 mL) subcut aneous pen inject or 2024 025 [facility][id number], [address] [place] [address], [address], 04/08/2025 11:39:04 clotri mazole 1 % topica l soluti on 2024 025 [facility][id number], [address] [place], [address], 11/20/2024 16:32:49 buspir one 10 mg tablet 2024 025 [facility][id number], [address] [place], [address], 11/20/2024 16:32:49 buprop ion HCl SR 150 mg tablet ,12 hr sustai lesia-re lease 2023 024 [facility][id number], [address] [place], [address], 03/03/2024 15:00:52 buspir one 10 mg tablet 2023 024 [facility][id number], [address] [place], [address], 03/03/2024 15:00:52 Patient Targets Encounter Date Encounter Id Patient Goals Patient Target Last Modified By Organization Details Last Modified Time 09/26/2023 [id number] Ongoing of Microalbumin/Cre atinine Ratio yearly Not [...] <100 Not available Not available Not available 09/26/2023 [id number] Pt advised and agrees to do moderate [...] goal. [email or web address] Not available 09/26/2023 13:34:22 03/03/2024 [id number] Ongoing of Microalbumin/Cre atinine Ratio yearly Not [...] <100 Not available Not available Not available 03/03/2024 [id number] Pt advised and agrees to do moderate [...] goal. 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 Patient preferences and goals incorporated in plan and updated/modified as needed to reflect progress toward goal. Pt advised and agrees to work on self-monitoring behaviors; begin an appropriate diet for weight loss (such as a low carbohydrate diet), to do moderate exercise (such as walking) for approximately 150 minutes per week; and to identify desirable and timely rewards that will reinforce achievement of specific weight loss goals. [email or web address] Not available 11/20/2024 17:14:42 04/08/2025 [id number] Ongoing of Microalbumin/Cre atinine Ratio yearly Not [...] <100 Not available Not available Not available 04/08/2025 [id number] Pt advised and agrees to do moderate [...] By Organization Details Last Modified Time 09/26/2023 [id number] Starting a Weight-Loss Plan: Care Instructions pmadden Not available 09/26/2023 13:36:11 Nutrition Referral [...] medication. ramírez Not available 09/26/2023 13:01:44 03/03/2024 [id number] Starting a Weight-Loss Plan: Care Instructions pmadden Not available 03/03/2024 15:00:46 Nutrition Referral [...] medication. pmadden Not available 03/03/2024 14:55:40 04/08/2024 [id number] Medications (OTC, herbal therapies, supplements) reviewed and reconciled with patient and or caregiver, including potential side effects, drug interactions, instructions, and the consequences of not taking medication. Reviewed potential barriers to medication adherence, such as side effects from medication or cost of medication. pmadden Not available 04/08/2024 15:44:37 11/20/2024 [id number] otomycosis: care instructions pmadden Not available 11/20/2024 16:32:47 Starting a Weight-Loss Plan: Care Instructions pmadden Not available 11/20/2024 16:32:46 Nutrition Referral [...] of medication. pmadden Not available 11/20/2024 16:32:41 04/08/2025 [id number] Starting a Weight-Loss Plan: Care Instructions pmadden [...] or cost of medication. 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 Refer ral for Body mass index 30+ - obesity Referring Physician: Clary Morales, Internal Medicine, Encounter Date: 09/26/2023 Diabetic Ophthalmology Refer ral for Renal disorder due to type 2 diabetes mellitus Referring Physician: Clary Morales, Internal Medicine, Encounter Date: 09/26/2023 Summer School Coordinator/dietitian Refer ral for Body mass index 40+ - severely obese Referring Physician: Clary Morales Internal Medicine, Encounter Date: 03/03/2024 Psychiatrist Referral for Ma avelino depressive disorder Referring Physician: Clary Morales Internal Medicine, Encounter Date: 04/08/2024 Psychiatrist Referral for Ma avelino depressive disorder Medication Consultation Medication consultation with Robert Rosas MD Referring Physician: Clary Morales Internal Medicine, Encounter Date: 11/20/2024 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 School Coordinator/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 Refer ral for Body mass index 40+ - severely obese Referring Physician: Clary Morales Internal Medicine, Encounter Date: 11/20/2024 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 School Coordinator/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 Refer ral for Body mass index 40+ - severely obese Referring Physician: Clary Morales Internal Medicine, Encounter Date: 04/08/2025 Diabetic Ophthalmology Refer ral for Renal disorder due to type 2 diabetes mellitus Referring Physician: Clary Morales, Internal Medicine, Encounter Date: 04/08/2025 Infectious Disease Specialis t Referral for High risk homosexual behavior interested in PrEP Referring Physician: Clary Morales, Internal Medicine, Encounter Date: 04/08/2025 Results Created Date Observation Date Name Description Value Unit Range Abnormal Flag Note LastModifiedBy Organization Detail LastModifiedTime 09/26/1909/27/2023 BASIC METAB OLIC PANEL (8) glucose 101 mg/dL 70-99 above high normal Not Available [facility] ([facility]) [address] [place], [address], 09/28/2023 06:08:22 09/26/19 24 09/27/2023 BASIC METAB OLIC PANEL (8) BUN 12 mg/dL 6-24 Not Available [facility] ([facility]) [address] [place], [address], 09/28/2023 06:08:22 09/26/19 24 09/27/2023 BASIC METAB OLIC PANEL (8) creatinine 0.86 mg/dL 0.76-1 .27 Not Available [facility] ([facility]) [address] [place], [address], 09/28/2023 06:08:22 09/26/19 24 09/27/2023 BASIC METAB OLIC PANEL (8) eGFR 108 mL/mi n/1.7 3 >59 Not Available [facility] ([facility]) [address] [place], [address], 09/28/2023 06:08:22 09/26/1909/27/2023 BASIC METAB OLIC PANEL (8) BUN/creatini ne ratio 14 9-20 Not Available [facility] ([facility]) [address] [place], [address], 09/28/2023 06:08:22 09/26/19 24 09/27/2023 BASIC METAB OLIC PANEL (8) sodium 135 mmol/ L 134-14 4 Not Available [facility] ([facility]) [address] [facility] [place], [address], 09/28/2023 06:08:22 09/26/19 24 09/27/2023 BASIC METAB OLIC PANEL (8) potassium 4.1 mmol/ L 3.5-5. 2 Not Available [facility] ([facility]) [address] [place], [address], 09/28/2023 06:08:22 09/26/19 24 09/27/2023 BASIC METAB OLIC PANEL (8) chloride 95 mmol/ L 96-106 below low normal Not Available [facility] ([facility]) [address] [place], [address], 09/28/2023 06:08:22 09/26/19 24 09/27/2023 BASIC METAB OLIC PANEL (8) carbon dioxide, total 23 mmol/ L 20-29 Not Available [facility] ([facility]) [address] [place], [address], 09/28/2023 06:08:22 09/26/19 24 09/27/2023 BASIC METAB OLIC PANEL (8) calcium 10.0 mg/dL 8.7-10 .2 Not Available [facility] ([facility]) [address] [place], [address], 09/28/2023 06:08:22 09/26/19 24 09/27/2023 LIPID PANEL cholesterol, total 138 mg/dL 100-19 9 Not Available [facility] ([facility]) [address] [place], [address], 09/28/2023 06:08:23 09/26/19 24 09/27/2023 LIPID PANEL triglyceride s 208 mg/dL 0-149 above high normal Not Available [facility] ([facility]) [address] [place], [address], 09/28/2023 06:08:23 09/26/19 24 09/27/2023 LIPID PANEL HDL cholesterol 46 mg/dL >39 Not Available [facility]) [address] [facility] [place], [address], 09/28/2023 06:08:23 09/26/19 24 09/27/2023 LIPID PANEL VLDL cholesterol gabino 34 mg/dL 5-40 Not Available [facility] ([facility]) [address] [facility] [place], [address], 09/28/2023 06:08:23 09/26/19 24 09/27/2023 LIPID PANEL LDL chol calc ([facility]) 58 mg/dL 0-99 Not Available [facility]) [address] [place], [address], 09/28/2023 06:08:23 09/26/19 24 09/27/2023 LIPID PANEL comment: PET RESORT CONCIERGE Not Available [facility] ([facility]) [address] [facility], [place], [address], 09/28/2023 06:08:23 03/03/20 24 03/04/2024 COMP. METAB OLIC PANEL (14) glucose 98 mg/dL 70-99 normal Not Available [facility] ([facility]) [address] [place], [address], 03/04/2024 18:05:53 03/03/20 24 03/04/2024 COMP. METAB OLIC PANEL (14) BUN 14 mg/dL 6-24 normal Not Available [facility] ([facility]) [address] [place], [address], 03/04/2024 18:05:53 03/03/20 24 03/04/2024 COMP. METAB OLIC PANEL (14) creatinine 0.64 mg/dL 0.76-1 .27 below low normal Not Available [facility] ([facility]) [address] [facility] [place], [address], 03/04/2024 18:05:53 03/03/20 24 03/04/2024 COMP. METAB OLIC PANEL (14) eGFR 118 mL/mi n/1.7 3 >59 normal Not Available [facility] ([facility]) [address] [facility] [place], [address], 03/04/2024 18:05:53 03/03/20 24 03/04/2024 COMP. METAB OLIC PANEL (14) BUN/creatini ne ratio 22 9-20 above high normal Not Available [facility] ([facility]) [address] [facility] [place], [address], 03/04/2024 18:05:53 03/03/20 24 03/04/2024 COMP. METAB OLIC PANEL (14) sodium 140 mmol/ L 134-14 4 normal Not Available [facility] ([facility]) [address] [facility] [place], [address], 03/04/2024 18:05:53 03/03/20 24 03/04/2024 COMP. METAB OLIC PANEL (14) potassium 4.5 mmol/ L 3.5-5. 2 normal Not Available [facility] ([facility]) [address] [facility] [place], [address], 03/04/2024 18:05:53 03/03/20 24 03/04/2024 COMP. METAB OLIC PANEL (14) chloride 101 mmol/ L 96-106 normal Not Available [facility] ([facility]) [address] [facility] [place], [address], 03/04/2024 18:05:53 03/03/20 24 03/04/2024 COMP. METAB OLIC PANEL (14) carbon dioxide, total 24 mmol/ L 20-29 normal Not Available [facility] ([facility]) [address] [facility] [place], [address], 03/04/2024 18:05:53 03/03/20 24 03/04/2024 COMP. METAB OLIC PANEL (14) calcium 10.3 mg/dL 8.7-10 .2 above high normal Not Available [facility] ([facility]) [address] [place], [address], 03/04/2024 18:05:53 03/03/20 24 03/04/2024 COMP. METAB OLIC PANEL (14) protein, total 7.4 g/dL 6.0-8. 5 normal Not Available [facility] ([facility]) [address] [place], [address], 03/04/2024 18:05:53 03/03/20 24 03/04/2024 COMP. METAB OLIC PANEL (14) albumin 5.0 g/dL 4.1-5. 1 normal Not Available [facility] ([facility]) [address] [facility] [place], [address], 03/04/2024 18:05:53 03/03/20 24 03/04/2024 COMP. METAB OLIC PANEL (14) globulin, total 2.4 g/dL 1.5-4. 5 Not Available [facility] ([facility]) [address] [facility] [place], [address], 03/04/2024 18:05:53 03/03/20 24 03/04/2024 COMP. METAB OLIC PANEL (14) bilirubin, total 0.4 mg/dL 0.0-1. 2 normal Not Available [facility] ([facility]) [address] [facility] [place], [address], 03/04/2024 18:05:53 03/03/20 24 03/04/2024 COMP. METAB OLIC PANEL (14) alkaline phosphatase 74 IU/L 44-121 normal Not Available [facility]) [address] [facility] [place], [address], 03/04/2024 18:05:53 03/03/20 24 03/04/2024 COMP. METAB OLIC PANEL (14) AST (SGOT) 22 IU/L 0-40 normal Not Available [facility] ([facility]) [address] [facility], [place], [address], 03/04/2024 18:05:53 03/03/20 24 03/04/2024 COMP. METAB OLIC PANEL (14) ALT (SGPT) 32 IU/L 0-44 normal Not Available [facility] ([facility]) [address] [facility], [place], [address], 03/04/2024 18:05:53 03/03/20 24 03/04/2024 ALBUM IN/CR EAT RATIO , RANDO M UR creatinine, urine 88.5 mg/dL not estab. normal Not Available [facility] ([facility]) [address] [facility], [place], [address], 03/04/2024 18:05:54 03/03/20 24 03/04/2024 ALBUM IN/CR EAT RATIO , RANDO M UR albumin, urine 4.8 ug/mL not estab. Not Available [facility] ([facility]) [address] [place], [address], 03/04/2024 18:05:54 03/03/20 24 03/04/2024 ALBUM IN/CR EAT RATIO , RANDO M UR alb/creat ratio 5 mg/g_ creat 0-29 Dawna l: 0 - 29 Moder ately incre ased: 30 - 300 Sever eddie incre ased: >300 Not Available [facility] ([facility]) [address] [place], [address], 03/04/2024 18:05:54 03/03/20 24 03/04/2024 CHLAM YDIA/ GC AMPLI FICAT ION chlamydia trachomatis, TAVO NEGATI VE negati ve Not Available [facility] ([facility]) [address] [place], [address], 03/04/2024 18:05:54 03/03/20 24 03/04/2024 CHLAM YDIA/ GC AMPLI FICAT ION neisseria gonorrhoeae, TAVO NEGATI VE negati ve Not Available [facility] ([facility]) [address] [facility], [place], [address], 03/04/2024 18:05:54 03/03/20 24 03/04/2024 HCV ANTIB MEKA RFX TO QUANT PCR HCV Ab NON REACTI VE non reacti ve Not Available [facility] ([facility]) [address] [facility], [place], [address], 03/04/2024 18:05:55 03/03/20 24 03/04/2024 HCV ANTIB MEKA RFX TO QUANT PCR interpretati on: COMMEN T Not infec sierra with HCV unles s early or acute infec tion is suspe cted (whic h may be delay ed in an immun ocomp romis ed indiv idual ), or other evide nce exist s to indic ate HCV infec tion. Not Available [facility] ([facility]) [address] [facility], [place], [address], 03/04/2024 18:05:55 03/03/20 24 03/04/2024 HEMOG LOBIN A1C hemoglobin A1C 6.2 % 4.8-5. 6 above high normal Predi abete s: 5.7 - 6.4 Diabe lizzy: >6.4 Glyce prudencio contr ol for adult s with diabe lizzy: <7.0 Not Available [facility] ([facility]) [address] [facility], [place], [address], 03/04/2024 18:05:55 03/03/20 24 03/04/2024 T PALLI DUM SCREE THOM CASCA DE T pallidum antibodies NON REACTI VE non reacti ve Not Available [facility] ([facility]) [address] [facility], [place], [address], 03/04/2024 18:05:56 03/03/20 24 03/04/2024 HIV AB/P2 4 AG WITH REFLE X HIV Ab/P24 Ag screen NON REACTI VE non reacti ve HIV-1 /HIV- 2 antib odies and HIV-1 p24 antig en were NOT detec sierra. There is no labor atory evide nce of HIV infec tion. HIV Negat snehal Not Available [facility] ([facility]) [address] [place], [address], 03/04/2024 18:05:56 03/03/20 24 03/04/2024 HBSAG SCREE N HBsAg screen NEGATI VE negati ve Not Available [facility] ([facility]) [address] [facility], [place], [address], 03/04/2024 18:05:57 03/03/20 24 03/04/2024 HEP B CORE AB, IGM hep B core Ab, IgM NEGATI VE negati ve Not Available [facility] ([facility]) [address] [facility], [place], [address], 03/04/2024 18:05:57 12/13/19 25 12/13/2024 MARIANNE C DISEA SE PANEL T-transgluta minase (ttg) IgA <2 U/mL 0-3 Negat snehal 0 - 3 Weak Posit snehal 4 - 10 Posit snehal >10 Tissu e Trans gluta felicity e (tTG) has been ident ified as the endom ysial antig en. Studi es have demon str- ated that endom ysial IgA antib odies have over 99% speci ficit y for glute n sensi tive enter opath y. Not Available [facility] ([facility]) [address] [facility], [place], [address], 12/16/2024 06:07:34 12/13/19 25 12/15/2024 MARIANNE C DISEA SE PANEL endomysial antibody IgA NEGATI VE negati ve Not Available [facility] ([facility]) [address] [facility], [place], [address], 12/16/2024 06:07:34 12/13/19 25 12/15/2024 MARIANNE C DISEA SE PANEL immunoglobul in A, qn, serum 324 mg/dL 90-386 normal Not Available [facility] ([facility]) [address] [facility], [place], [address], 12/16/2024 06:07:34 12/13/19 25 12/12/2024 CBC WITH DIFFE RENTI AL/PL ATELE T WBC 6.4 x10e3 /uL 3.4-10 .8 normal Not Available [facility] ([facility]) [address] [facility], [place], [address], 12/16/2024 06:07:34 12/13/19 25 12/12/2024 CBC WITH DIFFE RENTI AL/PL ATELE T RBC 4.73 x10e6 /uL 4.14-5 .80 normal Not Available [facility] ([facility]) [address] [facility], [place], [address], 12/16/2024 06:07:34 12/13/19 25 12/12/2024 CBC WITH DIFFE RENTI AL/PL ATELE T hemoglobin 14.0 g/dL 13.0-1 7.7 normal Not Available [facility] ([facility]) [address] [place], [address], 12/16/2024 06:07:34 12/13/19 25 12/12/2024 CBC WITH DIFFE RENTI AL/PL ATELE T hematocrit 41.4 % 37.5-5 1.0 normal Not Available [facility] ([facility]) [address] [place], [address], 12/16/2024 06:07:34 12/13/19 25 12/12/2024 CBC WITH DIFFE RENTI AL/PL ATELE T MCV 88 fL 79-97 normal Not Available [facility] ([facility]) [address] [facility], [place], [address], 12/16/2024 06:07:34 12/13/19 25 12/12/2024 CBC WITH DIFFE RENTI AL/PL ATELE T MCH 29.6 pg 26.6-3 3.0 normal Not Available [facility] ([facility]) [address] [facility], [place], [address], 12/16/2024 06:07:34 12/13/19 25 12/12/2024 CBC WITH DIFFE RENTI AL/PL ATELE T MCHC 33.8 g/dL 31.5-3 5.7 normal Not Available [facility] ([facility]) [address] [facility], [place], [address], 12/16/2024 06:07:34 12/13/19 25 12/12/2024 CBC WITH DIFFE RENTI AL/PL ATELE T RDW 13.0 % 11.6-1 5.4 Not Available [facility] ([facility]) [address] [place], [address], 12/16/2024 06:07:34 12/13/19 25 12/12/2024 CBC WITH DIFFE RENTI AL/PL ATELE T platelets 285 x10e3 /uL 150-45 0 normal Not Available [facility] ([facility]) [address] [place], [address], 12/16/2024 06:07:34 12/13/19 25 12/12/2024 CBC WITH DIFFE RENTI AL/PL ATELE T neutrophils 45 % not estab. normal Not Available [facility] ([facility]) [address] [place], [address], 12/16/2024 06:07:34 12/13/19 25 12/12/2024 CBC WITH DIFFE RENTI AL/PL ATELE T lymphs 42 % not estab. normal Not Available [facility] ([facility]) [address] [place], [address], 12/16/2024 06:07:34 12/13/19 25 12/12/2024 CBC WITH DIFFE RENTI AL/PL ATELE T monocytes 10 % not estab. normal Not Available [facility] ([facility]) [address] [place], [address], 12/16/2024 06:07:34 12/13/19 25 12/12/2024 CBC WITH DIFFE RENTI AL/PL ATELE T eos 2 % not estab. normal Not Available [facility] ([facility]) [address] [place], [address], 12/16/2024 06:07:34 12/13/19 25 12/12/2024 CBC WITH DIFFE RENTI AL/PL ATELE T basos 1 % not estab. normal Not Available [facility] ([facility]) [address] [place], [address], 12/16/2024 06:07:34 12/13/19 25 12/12/2024 CBC WITH DIFFE RENTI AL/PL ATELE T immature cells PET RESORT CONCIERGE Not Available [facility] ([facility]) [address] [place], [address], 12/16/2024 06:07:34 12/13/19 25 12/12/2024 CBC WITH DIFFE RENTI AL/PL ATELE T neutrophils (absolute) 2.9 x10e3 /uL 1.4-7. 0 normal Not Available [facility] ([facility]) [address] [place], [address], 12/16/2024 06:07:34 12/13/19 25 12/12/2024 CBC WITH DIFFE RENTI AL/PL ATELE T lymphs (absolute) 2.7 x10e3 /uL 0.7-3. 1 normal Not Available [facility] ([facility]) [address] [place], [address], 12/16/2024 06:07:34 12/13/19 25 12/12/2024 CBC WITH DIFFE RENTI AL/PL ATELE T monocytes(ab solute) 0.7 x10e3 /uL 0.1-0. 9 normal Not Available [facility] ([facility]) [address] [facility], [place], [address], 12/16/2024 06:07:34 12/13/19 25 12/12/2024 CBC WITH DIFFE RENTI AL/PL ATELE T eos (absolute) 0.1 x10e3 /uL 0.0-0. 4 normal Not Available [facility] ([facility]) [address] [place], [address], 12/16/2024 06:07:34 12/13/19 25 12/12/2024 CBC WITH DIFFE RENTI AL/PL ATELE T baso (absolute) 0.0 x10e3 /uL 0.0-0. 2 normal Not Available [facility] ([facility]) [address] [place], [address], 12/16/2024 06:07:34 12/13/19 25 12/12/2024 CBC WITH DIFFE RENTI AL/PL ATELE T immature granulocytes 0 % not estab. Not Available [facility] ([facility]) [address] [place], [address], 12/16/2024 06:07:34 12/13/19 25 12/12/2024 CBC WITH DIFFE RENTI AL/PL ATELE T immature grans (abs) 0.0 x10e3 /uL 0.0-0. 1 Not Available [facility] ([facility]) [address] [place], [address], 12/16/2024 06:07:34 12/13/19 25 12/12/2024 CBC WITH DIFFE RENTI AL/PL ATELE T NRBC PET RESORT CONCIERGE Not Available [facility] ([facility]) [address] [facility], [place], [address], 12/16/2024 06:07:34 12/13/19 25 12/12/2024 CBC WITH DIFFE HAYDEE AL/NIRANJAN BABB T hematology comments: PET RESORT CONCIERGE Not Available [facility] ([facility]) [address], [place], [address], 12/16/2024 06:07:34 12/13/19 25 12/13/2024 COMP. METAB OLIC PANEL (14) glucose 112 mg/dL 70-99 above high normal Not Available [facility] ([facility]) [address] [place], [address], 12/16/2024 06:07:35 12/13/19 25 12/13/2024 COMP. METAB OLIC PANEL (14) BUN 9 mg/dL 6-24 normal Not Available [facility] ([facility]) [address] [facility] [place], [address], 12/16/2024 06:07:35 12/13/19 25 12/13/2024 COMP. METAB OLIC PANEL (14) creatinine 0.68 mg/dL 0.76-1 .27 below low normal Not Available [facility] ([facility]) [address] [facility], [place], [address], 12/16/2024 06:07:35 12/13/19 25 12/13/2024 COMP. METAB OLIC PANEL (14) eGFR 115 mL/mi n/1.7 3 >59 normal Not Available [facility] ([facility]) [address] [facility], [place], [address], 12/16/2024 06:07:35 12/13/19 25 12/13/2024 COMP. METAB OLIC PANEL (14) BUN/creatini ne ratio 13 9-20 normal Not Available [facility] ([facility]) [address] [facility] [place], [address], 12/16/2024 06:07:35 12/13/19 25 12/13/2024 COMP. METAB OLIC PANEL (14) sodium 139 mmol/ L 134-14 4 normal Not Available [facility] ([facility]) [address] [facility] [place], [address], 12/16/2024 06:07:35 12/13/19 25 12/13/2024 COMP. METAB OLIC PANEL (14) potassium 4.2 mmol/ L 3.5-5. 2 normal Not Available [facility] ([facility]) [address] [facility] [place], [address], 12/16/2024 06:07:35 12/13/19 25 12/13/2024 COMP. METAB OLIC PANEL (14) chloride 101 mmol/ L 96-106 normal Not Available [facility] ([facility]) [address] [facility] [place], [address], 12/16/2024 06:07:35 12/13/19 25 12/13/2024 COMP. METAB OLIC PANEL (14) carbon dioxide, total 20 mmol/ L 20-29 normal Not Available [facility] ([facility]) [address] [facility] [place], [address], 12/16/2024 06:07:35 12/13/19 25 12/13/2024 COMP. METAB OLIC PANEL (14) calcium 9.2 mg/dL 8.7-10 .2 normal Not Available [facility] ([facility]) [address] [facility] [place], [address], 12/16/2024 06:07:35 12/13/19 25 12/13/2024 COMP. METAB OLIC PANEL (14) protein, total 7.3 g/dL 6.0-8. 5 normal Not Available [facility] ([facility]) [address] [facility] [place], [address], 12/16/2024 06:07:35 12/13/19 25 12/13/2024 COMP. METAB OLIC PANEL (14) albumin 4.6 g/dL 4.1-5. 1 normal Not Available [facility] ([facility]) [address] [place], [address], 12/16/2024 06:07:35 12/13/19 25 12/13/2024 COMP. METAB OLIC PANEL (14) globulin, total 2.7 g/dL 1.5-4. 5 Not Available [facility] ([facility]) [address] [place], [address], 12/16/2024 06:07:35 12/13/19 25 12/13/2024 COMP. METAB OLIC PANEL (14) bilirubin, total 0.3 mg/dL 0.0-1. 2 normal Not Available [facility] ([facility]) [address] [place], [address], 12/16/2024 06:07:35 12/13/19 25 12/13/2024 COMP. METAB OLIC PANEL (14) alkaline phosphatase 92 IU/L 44-121 normal Not Available [facility] ([facility]) [address] [place], [address], 12/16/2024 06:07:35 12/13/19 25 12/13/2024 COMP. METAB OLIC PANEL (14) AST (SGOT) 37 IU/L 0-40 normal Not Available [facility] ([facility]) [address] [place], [address], 12/16/2024 06:07:35 12/13/19 25 12/13/2024 COMP. METAB OLIC PANEL (14) ALT (SGPT) 59 IU/L 0-44 above high normal Not Available [facility] ([facility]) [address] [place], [address], 12/16/2024 06:07:35 12/13/19 25 12/13/2024 LIPID PANEL cholesterol, total 159 mg/dL 100-19 9 normal Not Available [facility] ([facility]) [address] [facility], [place], [address], 12/16/2024 06:07:35 12/13/19 25 12/13/2024 LIPID PANEL triglyceride s 282 mg/dL 0-149 above high normal Not Available [facility] ([facility]) [address] [facility] [place], [address], 12/16/2024 06:07:35 12/13/19 25 12/13/2024 LIPID PANEL HDL cholesterol 44 mg/dL >39 normal Not Available [facility] ([facility]) [address] [facility] [place], [address], 12/16/2024 06:07:35 12/13/19 25 12/13/2024 LIPID PANEL VLDL cholesterol gabino 45 mg/dL 5-40 above high normal Not Available [facility] ([facility]) [address] [facility], [place], [address], 12/16/2024 06:07:35 12/13/19 25 12/13/2024 LIPID PANEL LDL chol calc ([facility]) 70 mg/dL 0-99 Not Available [facility] ([facility]) [address] [facility], [place], [address], 12/16/2024 06:07:35 12/13/19 25 12/13/2024 LIPID PANEL LDL calc comment: PET RESORT CONCIERGE Not Available [facility] ([facility]) [address] [place], [address], 12/16/2024 06:07:35 12/13/19 25 12/13/2024 ALBUM IN/CR EAT RATIO TERRY UR creatinine, urine 172.5 mg/dL not estab. normal Not Available [facility] ([facility]) [address] [facility] [place], [address], 12/16/2024 06:07:36 12/13/19 25 12/13/2024 ALBUM IN/CR EAT RATIO , TERRY Vargas UR albumin, urine 35.8 ug/mL not estab. Not Available [facility] ([facility]) [address] [facility], [place], [address], 12/16/2024 06:07:36 12/13/19 25 12/13/2024 ALBUM IN/CR EAT RATIO , RANDO M UR alb/creat ratio 21 mg/g_ creat 0-29 Dawna l: 0 - 29 Moder ately incre ased: 30 - 300 Sever eddie incre ased: >300 Not Available [facility] ([facility]) [address] [place], [address], 12/16/2024 06:07:36 12/13/19 25 12/16/2024 CHLAM YDIA/ GC AMPLI FICAT ION chlamydia trachomatis, TAVO NEGATI VE negati ve Not Available [facility] ([facility]) [address] [facility], [place], [address], 12/16/2024 06:07:36 12/13/19 25 12/16/2024 CHLAM YDIA/ GC AMPLI FICAT ION neisseria gonorrhoeae, TAVO NEGATI VE negati ve Not Available [facility] ([facility]) [address] [facility], [place], [address], 12/16/2024 06:07:36 12/13/1912/13/2024 HCV ANTIB MEKA RFX TO QUANT PCR HCV Ab NON REACTI VE non reacti ve Not Available [facility] ([facility]) [address] [place], [address], 12/16/2024 06:07:36 12/13/1912/13/2024 HCV ANTIB MEKA RFX TO QUANT PCR interpretati on: COMMEN T Not infec sierra with HCV unles s early or acute infec tion is suspe cted (whic h may be delay ed in an immun ocomp romis ed indiv idual ), or other evide nce exist s to indic ate HCV infec tion. Not Available [facility] ([facility]) [address] [facility], [place], [address], 12/16/2024 06:07:36 12/13/1912/13/2024 HEMOG LOBIN A1C hemoglobin A1C 6.6 % 4.8-5. 6 above high normal Predi abete s: 5.7 - 6.4 Diabe lizzy: >6.4 Glyce prudencio contr ol for adult s with diabe lizzy: <7.0 Not Available [facility] ([facility]) [address] [facility], [place], [address], 12/16/2024 06:07:37 12/13/1912/13/2024 VITAM IN D, 25-HY DROXY vitamin D, 25-hydroxy 23.3 NG/mL 30.0-1 00.0 below low normal Vitam [...] 1. IOM (Inst itute of Medic ine). 2009. Dieta ry refer ence intak es for calci um and D. Mona gutierres [place]: [facility] . 2. Sultana gomez MF, Rajan guevara [place], Lucien off-F errar i ISSA, et al. Evalu ation , treat ment, and preve ntion of vitam in D defic iency : an Endoc rine Socie ty clini gabino pract ice guide line. JCEM. 2010; 96(7) :1911 -30. Not Available [facility] ([facility]) [address] [facility], [place], [address], 12/16/2024 06:07:37 05/30/20 25 12/13/2024 T PALLI DUM SCREE THOM CASCA DE T pallidum antibodies NON REACTI VE non reacti ve Not Available [facility] ([facility]) [address] [place], [address], 12/16/2024 06:07:37 12/13/1912/13/2024 HIV AB/P2 4 AG WITH REFLE X HIV Ab/P24 Ag screen NON REACTI VE non reacti ve HIV-1 /HIV- 2 antib odies and HIV-1 p24 antig en were NOT detec sierra. There is no labor atory evide nce of HIV infec tion. HIV Negat snehal Not Available [facility] ([facility]) [address] [place], [address], 12/16/2024 06:07:38 12/13/1912/13/2024 TSH RFX ON ABNOR MAL TO FREE T4 TSH 0.283 uIU/m L 0.450- 4.500 below low normal Not Available [facility] ([facility]) [address] [place], [address], 12/16/2024 06:07:38 12/13/1912/13/2024 TSH RFX ON ABNOR MAL TO FREE T4 T4,free (direct) 1.47 NG/dL 0.82-1 .77 normal Not Available [facility] ([facility]) [address] [place], [address], 12/16/2024 06:07:38 12/13/1912/13/2024 CREAT INE KINAS E,TOT AL creatine kinase,total 327 U/L 49-439 normal Not Available [facility] ([facility]) [address] [place], [address], 12/16/2024 06:07:39 12/13/1912/13/2024 HBSAG SCREE N HBsAg screen NEGATI VE negati ve Not Available [facility] ([facility]) [address] [place], [address], 12/16/2024 06:07:39 12/13/1912/13/2024 HEP B CORE AB, IGM hep B core Ab, IgM NEGATI VE negati ve Not Available [facility] ([facility]) [address] [facility], [place], [address], 12/16/2024 06:07:39 04/08/2004/09/2025 TSH+F REE T4 TSH 0.273 uIU/m L 0.450- 4.500 below low normal Not Available [facility] ([facility]) [address] [facility], [place], [address], 04/09/2025 16:06:28 04/08/2004/09/2025 TSH+F REE T4 T4,free(dire ct) 1.57 NG/dL 0.82-1 .77 normal Not Available [facility] ([facility]) [address] [facility], [place], [address], 04/09/2025 16:06:28 04/08/20 25 04/08/2025 COMP. METAB [...] at www.k doqi. org. Not Available [facility] ([facility]) [address] [facility], [place], [address], 04/09/2025 16:06:29 04/08/20 25 04/09/2025 COMP. METAB OLIC PANEL (14) glucose 120 mg/dL 70-99 above high normal Not Available [facility] ([facility]) [address] [place], [address], 04/09/2025 16:06:29 04/08/20 25 04/09/2025 COMP. METAB OLIC PANEL (14) BUN 12 mg/dL 6-24 normal Not Available [facility] ([facility]) [address] [place], [address], 04/09/2025 16:06:29 04/08/20 25 04/09/2025 COMP. METAB OLIC PANEL (14) creatinine 0.82 mg/dL 0.76-1 .27 normal Not Available [facility] ([facility]) [address] [place], [address], 04/09/2025 16:06:29 04/08/20 25 04/09/2025 COMP. METAB OLIC PANEL (14) eGFR 109 mL/mi n/1.7 3 >59 normal Not Available [facility] ([facility]) [address] [place], [address], 04/09/2025 16:06:29 04/08/20 25 04/09/2025 COMP. METAB OLIC PANEL (14) BUN/creatini ne ratio 15 9-20 normal Not Available [facility] ([facility]) [address] [place], [address], 04/09/2025 16:06:29 04/08/20 25 04/09/2025 COMP. METAB OLIC PANEL (14) sodium 139 mmol/ L 134-14 4 normal Not Available [facility] ([facility]) [address] [place], [address], 04/09/2025 16:06:29 04/08/20 25 04/09/2025 COMP. METAB OLIC PANEL (14) potassium 3.9 mmol/ L 3.5-5. 2 normal Not Available [facility] ([facility]) [address] [place], [address], 04/09/2025 16:06:29 04/08/20 25 04/09/2025 COMP. METAB OLIC PANEL (14) chloride 98 mmol/ L 96-106 normal Not Available [facility] ([facility]) [address] [place], [address], 04/09/2025 16:06:29 04/08/20 25 04/09/2025 COMP. METAB OLIC PANEL (14) carbon dioxide, total 21 mmol/ L 20-29 normal Not Available [facility] ([facility]) [address] [place], [address], 04/09/2025 16:06:29 04/08/20 25 04/09/2025 COMP. METAB OLIC PANEL (14) calcium 9.9 mg/dL 8.7-10 .2 normal Not Available [facility] ([facility]) [address] [place], [address], 04/09/2025 16:06:29 04/08/20 25 04/09/2025 COMP. METAB OLIC PANEL (14) protein, total 7.4 g/dL 6.0-8. 5 normal Not Available [facility] ([facility]) [address] [place], [address], 04/09/2025 16:06:29 04/08/20 25 04/09/2025 COMP. METAB OLIC PANEL (14) albumin 4.6 g/dL 4.1-5. 1 normal Not Available [facility] ([facility]) [address] [place], [address], 04/09/2025 16:06:29 04/08/20 25 04/09/2025 COMP. METAB OLIC PANEL (14) globulin, total 2.8 g/dL 1.5-4. 5 Not Available [facility] ([facility]) [address] [facility] [place], [address], 04/09/2025 16:06:29 04/08/2004/09/2025 COMP. METAB OLIC PANEL (14) bilirubin, total 0.7 mg/dL 0.0-1. 2 normal Not Available [facility] ([facility]) [address] [facility] [place], [address], 04/09/2025 16:06:29 04/08/20 25 04/09/2025 COMP. METAB OLIC PANEL (14) alkaline phosphatase 82 IU/L 47-123 normal Ple ase note refer ence inter garrett iraheta e Not Available [facility] ([facility]) [address] [facility], [place], [address], 04/09/2025 16:06:29 04/08/20 25 04/09/2025 COMP. METAB OLIC PANEL (14) AST (SGOT) 24 IU/L 0-40 normal Not Available [facility] ([facility]) [address] [facility] [place], [address], 04/09/2025 16:06:29 04/08/20 25 04/09/2025 COMP. METAB OLIC PANEL (14) ALT (SGPT) 31 IU/L 0-44 normal Not Available [facility] ([facility]) [address] [facility], [place], [address], 04/09/2025 16:06:29 04/08/20 25 04/09/2025 CHLAM YDIA/ GC AMPLI FICAT ION chlamydia trachomatis, TAVO Negati ve negati ve Not Available [facility] ([facility]) [address] [facility], [place], [address], 04/09/2025 16:06:30 04/08/20 25 04/09/2025 CHLAM YDIA/ GC AMPLI FICAT ION neisseria gonorrhoeae, TAVO Negati ve negati ve Not Available [facility] ([facility]) [address] [place], [address], 04/09/2025 16:06:30 04/08/2004/09/2025 HCV ANTIB MEKA RFX TO QUANT PCR HCV Ab Non Reacti ve non reacti ve Not Available [facility] ([facility]) [address] [place], [address], 04/09/2025 16:06:31 04/08/2004/09/2025 HCV ANTIB MEKA RFX TO QUANT PCR interpretati on: Commen t Not infec sierra with HCV unles s early or acute infec tion is suspe cted (whic h may be delay ed in an immun ocomp romis ed indiv idual ), or other evide nce exist s to indic ate HCV infec tion. Not Available [facility] ([facility]) [address] [facility], [place], [address], 04/09/2025 16:06:31 04/08/2004/09/2025 HEMOG LOBIN A1C hemoglobin A1C 6.8 % 4.8-5. 6 above high normal Predi abete s: 5.7 - 6.4 Diabe lizzy: >6.4 Glyce prudencio contr ol for adult s with diabe lizzy: <7.0 Not Available [facility] ([facility]) [address] [place], [address], 04/09/2025 16:06:32 04/08/2004/09/2025 VITAM IN D, 25-HY [...] Medic ine). 2010. Dieta ry refer ence kiersten es for calci um and DShantal gutierres [place]: The [facility] . 2. Sultana gomez MF, Binkl ey [place], Bisch off-F errar i ISSA, et al. Evalu ation , treat ment, and preve ntion of vitam in D defic iency : an Endoc rine Socie ty clini gabino pract ice guide line. JCEM. 2010; 96(7) :1911 -30. Not Available [facility] ([facility]) [address] [facility] [place], [address], 04/09/2025 16:06:32 04/08/2004/09/2025 T PALLI DUM SCREE THOM CASCA DE T pallidum antibodies Non Reacti ve non reacti ve Not Available [facility] ([facility]) [address] [place], [address], 04/09/2025 16:06:33 04/08/20 25 04/09/2025 HIV AB/P2 4 AG WITH REFLE X HIV Ab/P24 Ag screen Non Reacti ve non reacti ve HIV-1 /HIV- 2 antib odies and HIV-1 p24 antig en were NOT detec sierra. There is no labor atory evide nce of HIV infec tion. HIV Negat snehal Not Available [facility] ([facility]) [address] [facility], [place], [address], 04/09/2025 16:06:33 04/08/2004/09/2025 THYRO ID ANTIB ODIES thyroid peroxidase (tpo) Ab <9 IU/mL 0-34 Not Available [facility] ([facility]) [address] [place], [address], 04/09/2025 16:06:34 04/08/20 25 04/09/2025 THYRO ID ANTIB ODIES thyroglobuli n antibody <1.0 IU/mL 0.0-0. 9 Thyro globu henry Antib meka measu red by Kalina Lyon er Metho dolog y It shoul d be noted that the prese nce of thyro globu henry antib odies may not be patho genic nor diagn ostic , espec ially at very low level s. The assay vladislav actur er has found that four perce nt of indiv idual s witho ut evide nce of thyro id disea se or autoi mmuni ty will have posit snehal TgAb level s up to 4 IU/mL . Not Available [facility] ([facility]) [address] [place], [address], 04/09/2025 16:06:34 04/08/2004/09/2025 HBSAG SCREE N HBsAg screen Negati ve negati ve Not Available [facility] ([facility]) [address] [place], [address], 04/09/2025 16:06:35 04/08/20 25 04/09/2025 TRIIO DOTHY SILVIO E (T3), FREE triiodothyro nine (T3), free 3.7 pg/mL 2.0-4. 4 normal Not Available [facility] ([facility]) [address] [place], [address], 04/09/2025 16:06:35 04/08/2004/09/2025 HEP B CORE AB, IGM hep B core Ab, IgM Negati ve negati ve Not Available [facility] ([facility]) [address] [place], [address], 04/09/2025 16:06:36 04/16/2004/17/2025 VITAM IN B12 vitamin B12 291 pg/mL 232-12 45 normal Not Available [facility] ([facility]) [address] [place], [address], 04/17/2025 10:05:55 04/27/2004/22/2025 US head neck soft tissu e See [facility] , a member of [employer] Macy douglas Name: NARESH WEST Date of : 1974 Reason for Exam: THYROT OXICOS IS,UNS PECIFI ED Exam Date: 2024 [id number] EST Report Status : Final Orderi ng [...] gland. Otherw ise, normal examin ation. Code 45028 ------ -- FINAL REPORT ------ -- Dictat ed By: Naveen Burroughs Dictat ed Date: 2024 11:18 ET Assign ed Physic ngozi: Naveen Burroughs Review ed and Electr onical ly Signed By: Naveen Burroughs Signed Date: 2024 11:21 ET Workst ation ID: [facility] Transc ribed By: Self Edit Transc ribed Date: 2024 11:18 ET SRUTHI [facility] U/S Dept [address], [place], [address], 04/27/2025 16:00:48 Result Notes None recorded. Problems Name Problem SNOMED Code Status Onset Date Resolution Date Notes Provider Name and Address Organization Details Recorded Time Depressi ve disorder 38009773 Completed 03/05/2022 Clary Morales PA-C [address] [facility] [address], [place], [address] , [facility] 08/21/202 2 21:05:23 Administ ration of bacteria l and viral vaccine Completed 200802/03/2014 RECORDED 12/31/19 09 2:17PM BY TONYA ADAMES, OFFICE VISIT Not Available [facility] 4 15:13:47 Administ ration of bacteria l and viral vaccine Completed 200802/23/2014 RECORDED 12/31/19 09 2:17PM BY TONYA ADAMES, OFFICE VISIT Not Available [facility] 4 06:00:27 Cellulit is and abscess of buttock 467366548 Completed 201102/03/2014 RECORDED 01/26/20 12 9:03AM BY MAGNUS SIDDIQUI MA, ANNOTATI ON/ADDEN DUM Not Available [facility] 4 15:13:47 Chest pain 99933465 Completed 201102/03/2014 RECORDED 01/26/20 12 9:03AM BY MAGNUS SIDDIQUI MA, ANNOTATI ON/ADDEN DUM Not Available [facility] 4 15:13:47 Exposure to organism Completed 201102/03/2014 RECORDED 01/26/20 12 9:03AM BY MAGNUS SIDDIQUI MA, ANNOTATI ON/ADDEN DUM Not Available [facility] 4 15:13:47 Noninfec tious gastroen teritis 17795033 Completed 201102/03/2014 RECORDED 01/26/20 12 9:03AM BY MAGNUS SIDDIQUI MA, ANNOTATI ON/ADDEN DUM Not Available [facility] 4 15:13:47 Internal hordeolu m 582433532 Completed 201102/03/2014 RECORDED 01/26/20 12 9:03AM BY MAGNUS SIDDIQUI MA, ANNOTATI ON/ADDEN DUM Not Available [facility] 4 15:13:47 Pure hypercho lesterol emia 658080985 Completed 201102/03/2014 RECORDED 01/26/20 12 9:03AM BY MAGNUS SIDDIQUI MA, ANNOTATI ON/ADDEN DUM Not Available [facility] 4 15:13:47 High risk sexual behavior 398726863 Completed 201102/03/2014 RECORDED 01/26/20 12 9:03AM BY MAGNUS SIDDIQUI MA, ANNOTATI ON/ADDEN DUM Not Available [facility] 4 15:13:47 Adult health examinat ion Completed 201102/03/2014 RECORDED 01/26/20 12 9:03AM BY MAGNUS SIDDIQUI MA, ANNOTATI ON/ADDEN DUM Not Available [facility] 4 15:13:47 Cellulit is and abscess of buttock 631359769 Completed 201102/23/2014 RECORDED 01/26/20 12 9:03AM BY MAGNUS SIDDIQUI MA, ANNOTATI ON/ADDEN DUM Not Available [facility] 4 06:00:27 Chest pain 17955608 Completed 201102/23/2014 RECORDED 01/26/20 12 9:03AM BY MAGNUS SIDDIQUI MA, ANNOTATI ON/ADDEN DUM Not Available [facility] 4 06:00:27 Exposure to organism Completed 201102/23/2014 RECORDED 01/26/20 12 9:03AM BY MAGNUS SIDDIQUI MA, ANNOTATI ON/ADDEN DUM Not Available [facility] 4 06:00:27 Noninfec tious gastroen teritis 66077697 Completed 201102/23/2014 RECORDED 01/26/20 12 9:03AM BY MAGNUS SIDDIQUI MA, ANNOTATI ON/ADDEN DUM Not Available [facility] 4 06:00:27 Internal hordeolu m 900860965 Completed 201102/23/2014 RECORDED 01/26/20 12 9:03AM BY MAGNUS SIDDIQUI MA, ANNOTATI ON/ADDEN DUM Not Available [facility] 4 06:00:27 Pure hypercho lesterol emia 004394467 Completed 201102/23/2014 RECORDED 01/26/20 12 9:03AM BY MAGNUS SIDDIQUI MA, ANNOTATI ON/ADDEN DUM Not Available [facility] 4 06:00:27 High risk sexual behavior 549944168 Completed 201102/23/2014 RECORDED 01/26/20 12 9:03AM BY MAGNUS SIDDIQUI MA, ANNOTATI ON/ADDEN DUM Not Available [facility] 4 06:00:27 Adult health examinat ion Completed 201102/23/2014 RECORDED 01/26/20 12 9:03AM BY MAGNUS SIDDIQUI MA, ANNOTATI ON/ADDEN DUM Not Available [facility] 4 06:00:27 Influenz a vaccine needed 10528497100 06 Completed 201102/03/2014 RECORDED 03/11/20 12 8:38AM BY SAMARA ACUÑA I, OFFICE VISIT Not Available [facility] 4 15:13:47 Influenz a vaccine needed 88240130181 06 Completed 201102/23/2014 RECORDED 03/11/20 12 8:38AM BY SAMARA ACUÑA I, OFFICE VISIT Not Available [facility] 4 06:00:27 Anxiety disorder 170639626 Active 2011 Jael wei, [facility] 7 14:34:39 Recurren t major depressi ve episodes , in full remissio n Completed 201103/05/2022 Clary Morales PA-C [address] [address], [place], [address] , [facility] 2 21:05:57 Malaise and fatigue 339367229 Completed 201102/03/2014 IMPRESSI ON: LONG HX OF [...] ACUÑA I, ANNOTATI ON/ADDEN DUM Not Available [facility] 4 15:13:47 Insomnia 680421270 Active 2011 Jael wei, [facility] 7 14:34:35 Drug abuse 37196678 Active 2011 Jael wei, [facility] 7 14:34:41 Tobacco dependen ce syndrome 01769135 Active 2011 Jael wei, [facility] 7 14:34:51 Malaise and fatigue 538337098 Completed 201102/23/2014 IMPRESSI ON: LONG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 possibilit y of having fmla - encouraged him to call his HR in [place], [place] to fwd paperwork to us, and we'd be happy to fill out for him Renal diso rder due to type 2 diabetes mellitus 016134655 E11.22 N18.1 Continue quarterly follow-up of serum creatinine , blood pressure, glycemic control. Referral to renal as indicated. Chronic ki dney disease stage 1 356010630 N18.1 [id number] Jose Alfredo Quinn MD [facility] [address] [facility] 207 [facility] [place] [address] 04/29/2020 08:04:32 04/29/2020 13:23:11 Renal disorder due to type 2 diabetes mellitus 583707311 E11.22 N18.1 Continue quarterly follow-up of serum creatinine , blood pressure, glycemic control. Referral to renal as indicated. 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 - apparently had sleep study [...] encouraged him to call his HR in [place], [place] to fwd paperwork to us, and [...] to have this (and below) addressed Hematochezia 708713893 K 62.5 and occ hematemesi s - pt did not get egd/colon c [facility] d/t financial issues at the time - will re-try Gastroesop hageal reflux disease 951463100 K21.9 see above re: possible egd/colon [id number] Jose Alfredo Quinn MD [facility] [address] [facility] [address] [place] [address] 06/01/2020 07:20:14 06/01/2020 13:25:05 Renal disorder due to type 2 diabetes mellitus 710267167 E11.22 N18.1 encouraged pt to get outstandin g labs done, and get his DM eye exam too Snoring 81486391 R06.83 father has patricia - 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 if he rec'd pink slip from his employer) Hematochezia 795903173 K 62.5 and occ hematemesi s - pt did not get egd/colon c [facility] d/t financial issues at the time - will re-try update 11.17 - pt states he contacted gi - postponed his 11.4 eval - he will get in touch with them in the near future p his snoring/sl eeping issues addressed Mixed hyperlipidemia 267 928859 E78.2 rec low carb diet to help lower your trigs -- just began statin, recheck lipids in ~ 4 months [id number] Jose Alfredo Quinn MD Tele[facility] [address] [facility] [address] [facility] [address] 10/19/2020 08:30:44 10/19/2020 16:20:04 Major depressive disorder 908626517 F32.3 just recently sent updated rx for wellbutrin - hasn't started yet - urged him to do so (qd initially then increase to bid as gordon) pt states he made an apptmt c [facility] for next wk Anxiety disorder F41.9 see above - ? agoraphobi a too - hasn't left his home in a while to get rx's, urged him to have friend take him sounds like he has been experienci ng panic attacks lately - explained pros/cons of prn benzo - pt wishes to have small rx for prn use, low risk for addiction Apnea 6891561 R06.81 rev recent note - combinatio n of obstructiv e and central - cont cpap, f/u c sleep med Onychomyco sis of toenails 078553413 B35.1 pt requests pod eval [id number] Clary Morales PA-C Main Office [address] [facility] [address] [facility] [place] [address] 01/26/2021 08:48:25 01/26/2021 09:48:27 Adult health examination 455754494 Z00.00 Anxiety disorder 2691702 06 F41.9 severe on rafa - ? [...] on wellbutrin - urged him to call [facility] to make apptmt = hasn't done so yet, they're just down the street from him - he has a referral already Essential hypertension 44632227 I10 bp stable - cont as dir - will change to combo pill - less $ Mixed hyperlipidemia 267 805009 E78.2 rec low carb diet to help lower your trigs -- recheck lipids Renal diso rder due to type 2 diabetes mellitus 484246901 E11.22 N18.1 encouraged pt to get get his DM eye exam and to see acrylic fabricator (has referral for this) cont meds as dir check labs Tobacco de pendence syndrome 30525381 F17.290 Administra tion of pneumococcal vaccine 32252114 Z23 pt declines at this time Apnea 9348722 R06.81 rev recent note - combinatio n of obstructiv e and central - cont cpap, f/u c sleep med Chronic ki dney disease stage 1 772194327 N18.1 Insomnia 695282374 G47.0 0 trial c trazodone to help c sleep and mood - hopefully will not need benzo to help sleep in the future Body mass index 40+ - severely obese 717975510 E66.01 Z68.41 [id number] Clary Morales PA-C Telehealt h [address] [facility] [address] [place] [address] 02/22/2021 08:22:52 02/22/2021 12:55:09 Anxiety disorder 285148018 F41.9 severe on rafa - ? agoraphobi [...] octavio when has panic attack Depressive disorder 1008 9007 F32.2 rafa/phq severe- but he is feeling more energetic on wellbutrin - urged him to call [facility] to make apptmt = hasn't done so yet, they're just down the street from him - he has a referral already 8. -- has reached out to [facility], but still hasn't connected c them for a date yet - if still unsuccessf , then call [facility] below Insomnia 580538053 G47.0 0 trial c trazodone to help c sleep and mood - hopefully will not need benzo to help sleep in the future rec increase traz to 75mg qhs Hematochezia 285453284 K 62.5 pending see gi on 03.08 Mixed hyperlipidemia 267 774185 E78.2 rec low carb diet to help lower your trigs, cont statin as dir Exposure t o sexually transmissible disorder 835172268 Z20.2 pt requested sti testing Counseling 014811489 Z71 .9 Referral for counseling with [facility] / ELAINE Edwards. 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 x ~ 6 months, getting progressiv eddie worse - has tried home remedies, aloe - no sig help - rec trial of rogaine while awaiting derm eval Renal diso rder due to type 2 diabetes mellitus 420394771 E11.22 N18.1 better control of sugars lately - A1c stable at 6.2 despite ~ 40 lbs of wt gain - cont metformin as dir will get podiatry eval and eye md stokes 2.22 - no labs/ov in several months - will check labs, and discuss further at next ov Gastroesop hageal reflux disease 917755607 K21.9 cont ppi as dir by gi - apparently had egd/colon - no records to review - will attempt to get Hematochezia 688831919 K 62.5 see above - likely has occ hem bleed - no help c otc agents - will send in steroid cream - if no better then consider colorectal eval Apnea 4344933 R06.81 rev recent note - combinatio n of obstructiv e and central - feeling much better as per pt - cont cpap, f/u c sleep med Exposure t o sexually transmissible disorder 819997114 Z20.2 pt requested sti testing Chronic ki dney disease stage 1 429224909 N18.1 Hypertensi ve renal disease 54039956 I12.9 bp stable as per pt- cont as dir [id number] Jose Alfredo Quinn MD Main Office [address] [facility] [address] [place] [address] 03/01/2022 12:51:59 03/01/2022 14:09:28 Adult health examination 174911396 Z00.00 Body mass index 30+ - obesity 035985742 E66.01 Z68.39 Pt has lost add'l wt - diet > exercise, cont hawthorn extract Anxiety disorder 4909961 06 F41.9 severe on rafa - ? [...] agoraphobi a - encouraged pt to call [facility] Apnea 2240746 R06.81 combinatio n of obstructiv e and central - feeling much better as per pt - cont cpap, f/u c sleep med Chronic ki dney disease stage 1 380693417 N18.1 Renal diso rder due to type 2 diabetes mellitus 313525443 E11.22 N18.1 better control of sugars lately - A1c stable at 6.2 despite ~ 40 lbs of wt gain - cont metformin as dir will get podiatry eval and eye eval 2.22 - no labs/ov in several months - will check labs, and discuss further at next ov 8.22 - A1c down to 6.0, pending eye md in 2 months Mixed hyperlipidemia 267 934255 E78.2 rec low carb diet to help lower your trigs, cont statin as dir Major depr essive disorder 479229621 F32.0 just recently sent updated rx for wellbutrin - hasn't started yet - urged him to do so (qd initially then increase to bid as gordon) encouraged pt to call [facility] wk Gastroesop hageal reflux disease 753695938 K21.9 cont ppi as dir by gi Hypertensi ve renal disease 98376015 I12.9 bp elevated - rec double up combo pill Onychomyco sis of toenails 681446923 B35.1 pt requests pod eval External hemorrhoids 239 04358 K64.4 ext hem bleed most days - no sig help c hem cream - will try supp & get colorectal sx eval Panic diso rder with agoraphobia 11359654 F40.01 see above - - ? has agoraphobi a - encouraged pt to call [facility] [id number] Jose Alfredo Quinn MD Main Office [address] [place] [address] 07/03/2022 12:56:44 07/03/2022 13:47:22 Renal disorder due to type 2 diabetes mellitus 306255899 E11.22 N18.1 better control of sugars lately - A1c stable at 6.2 despite ~ 40 lbs of wt gain - cont metformin as dir will get podiatry evmarina and eye md divya 2.22 - no [...] agoraphobi a - encouraged pt to call [facility] 07.06 - stable, pt requests refill of prn benzo, to begin therapy next month Palpitations 67009539 R0 0.2 ? d/t SE of truvy for wt loss - check labs, if worse in future then consider BB Chronic ki dney disease stage 1 355337174 N18.1 Hypertensi ve renal disease 25492599 I12.9 bp stable, cont meds as dir [id number] Jose Alfredo Quinn MD Main Office [address] [place] [address] 12/28/2022 14:17:14 12/28/2022 15:43:19 Anxiety disorder [...] agoraphobi a - encouraged pt to call [facility] 07.06 - stable, pt requests refill of prn benzo, to begin therapy next month 6.23- Pt did not go to therapy due to insurance. RAFA score 21. see below, will add buspar & encouraged pt to see therapist Major depr essive disorder 199634746 F32.0 just recently sent updated rx for wellbutrin - hasn't started yet - urged him to do so (qd initially then increase to bid as gordon) 6.23- Taking Wellbutrin with no improvemen t. PHQ 9 score 22. will add buspar Renal diso rder due to type 2 diabetes mellitus 719844492 E11.22 N18.1 better control of sugars lately [...] by his ins, may need PA Hemorrhoids 34971018 K64 .9 see below Hematochezia 227869384 K 62.5 see above - likely has occ hem bleed - no help c otc agents - will send in steroid cream - if no better then consider colorectal eval 6.23 - seen by colorectal sx - no surgery offered ==== last colon 10.21 Body mass index 40+ - severely obese 391551850 E66.01 Z68.41 see dm above Chronic ki dney disease stage 1 822151861 N18.1 [id number] Jose Alfredo Quinn MD Telehealt h [address] [facility] [address] [facility] [place] [address] 02/13/2023 08:31:01 02/13/2023 10:24:44 Major depressive disorder 627118759 F32.2 just recently sent updated rx for wellbutrin - hasn't started yet - urged him to do so (qd initially then increase to bid as gordon) 6.23- Taking Wellbutrin with no improvemen t. PHQ 9 score 22. will add buspar 8.1.23 - see above Panic diso rder with agoraphobia 52409729 F40.01 see above - - ? has agoraphobi a - encouraged pt to call [facility] 8..23 - see above Renal diso rder due to type 2 diabetes mellitus 762507370 E11.22 N18.1 better control of sugars lately [...] need PA 8..23 - no like SE lester so stated he will stop Anxiety disorder 7305299 06 F41.9 severe on rafa - ? [...] agoraphobi a - encouraged pt to call [facility] 12.22 - stable, pt requests refill of prn benzo, to begin therapy next month 6.23- Pt did not go to therapy due to insurance. RAFA score 21. see below, will add buspar & encouraged pt to see therapist 8..23 - has been able to go outside more often lately, so appears buspar has helped a little - rec slowly uptitrate dose. also, encouraged pt to call [facility] to check on rest of aptmt building for mice (the primary source of his stress lately), and advised pt to see therapist Mixed hyperlipidemia 267 850796 E78.2 rec low carb diet to help lower your trigs, cont statin as dir Exposure t o sexually transmissible disorder 119534436 Z20.2 pt requested sti testing [id number] Jose Alfredo Quinn MD Main Office [address] [facility] [address] [place] [address] 04/30/2023 10:38:47 04/30/2023 13:52:37 Herpes labialis 5480401 B00.1 Better now c herpecin L (symptomat ic relief) - but not fully resolved - trial c abreva topically, will give valtrex for future PRN [id number] Jose Alfredo Quinn MD Main Office [address] [facility] [address] [place] [address] 05/23/2023 13:59:28 05/23/2023 15:09:08 Adult health examination 298545632 Z00.00 Anxiety disorder 4252483 06 F41.9 severe on rafa - ? [...] agoraphobi a - encouraged pt to call [facility] 12.22 - stable, pt requests refill of [...] uptitrate dose. also, encouraged pt to call [facility] to check on rest of aptmt [...] of prn benzoencou raged pt to call [address] [place] [address].o rg Influenza vaccination declined 158505047 Z28.21 Herpes labialis 5853243 B00.1 Better now c herpecin L (symptomat ic relief) - but not fully resolved - trial c abreva topically, will give valtrex for future PRN 11.23 - better p used valtrexapp arently ID divya was turned awayencour aged pt to go for outstandin g labsconsid er ID divya if + Major depr essive disorder 805069746 F32.2 just recently sent updated rx for wellbutrin - hasn't started yet - urged him to do so (qd initially then increase to bid as gordon)6.23- Taking Wellbutrin with no improvemen t. PHQ 9 score 22. will add buspar 11.23 - see above Renal diso rder due to type 2 diabetes mellitus 683620789 E11.22 better control of sugars lately - [...] stop Chronic ki dney disease stage 1 570028917 N18.1 Hypertensi ve renal disease 88075062 I12.9 bp stable, cont meds as dir Mixed hyperlipidemia 267 488435 E78.2 rec low carb diet to help lower your trigs, cont statin as dir Body mass index 30+ - obesity 893356047 E66.01 Z68.39 Pt has lost add'l wt - diet > exercise, cont hawthorn extract 11.23 - rec increase sleep, exercise, better diet (low carb) [id number] Jose Alfredo Quinn MD [facility] [address] [facility] [facility] [place] [address] 06/26/2023 10:12:56 06/26/2023 13:30:39 Anxiety disorder [id number] F41.9 severe on rafa - ? agoraphobi [...] agoraphobi a - [facility] - stable, pt requests [...] uptitrate dose. 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 PHQ 9 score 22. will add buspar 11.23 - see above Temporoman dibular joint disorder 80664060 M26.607 advised pt to f/u c his dentist - may need mouthguard or referral to oral surgeonzander hewitt trial of prn ice/heat [id number] Jose Alfredo Quinn MD Telehealt h [address] [facility] [address] [facility] [place] [address] 07/24/2023 10:31:25 07/24/2023 13:17:49 Anxiety disorder 154482538 F41.9 severe on rafa - ? agoraphobi [...] agoraphobi a - [facility] 12.22 - stable, pt requests [...] uptitrate dose. 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 - congratula sierra him on setting this up and encouraged him to go do the best he can on it - wished him well 1.24 - he didn't take pharmacy resource tech test last month, has pending apptmt [facility]hab worker tomorrow to help c job training/c melecio called a few therapy places, including [facility] - awaiting call backon a waiting list for new housing - problems c neighborin creased buspar seems to have helped him to remain calm in a stressful situation c his landlord - cont meds as dir Major depr essive disorder [id number] F32.2 just recently sent updated rx for wellbutrin - hasn't started yet - urged him to do so (qd initially then increase to bid as gordon)6.23- Taking Wellbutrin with no improvemen t. PHQ 9 score 22. will add buspar 1.24 - see above Viral uppe r respiratory tract infection [id number] J06.9 x 4-5 days, better past 1-2 days as per pt - cont prn supportive care Renal diso rder due to type 2 diabetes mellitus 312898820 E11.22 better control of sugars lately - [...] 1.24 - check labs ac next ov [id number] Jose Alfredo Quinn MD Main Office [address] [facility] [address] [facility] [place] [address] 09/26/2023 12:51:31 09/26/2023 13:39:19 Renal disorder due to type 2 diabetes mellitus 265188747 E11.22 better control of sugars lately - [...] EC Body mass index 30+ - obesity 788499104 E66.01 Z68.37 Pt has lost add'l wt - diet > exercise, cont hawthorn extract 11.23 - rec increase sleep, exercise, better diet (low carb) 3.24 - has lost > 15 lbs recently - cont diet/suppl ements, encouraged increased exercise Fatigue 64996052 R53.83 Z00.00 Hyperlipidemia 27562629 E78.5 Z00.00 FASTING if trigs remain elevated then consider krill oil in addition to statin Chronic ki dney disease stage 1 092475968 N18.1 [id number] Jose Alfredo Quinn MD Main Office [address] [facility] [address] [facility] [address] 03/03/2024 14:03:45 03/03/2024 15:06:43 Anxiety disorder 633632985 F41.9 severe on rafa - ? agoraphobi [...] agoraphobi a - [facility] 12.[facility] - stable, pt requests [...] uptitrate dose. 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 PHQ 9 score 22. will add buspar 1.24 - see above 8.24 - will refill Chronic ki dney disease stage 1 551979475 N18.1 Hypertensi ve renal disease 94198450 I12.9 bp stable, cont meds as dir Renal diso rder due to type 2 diabetes mellitus 623914121 E11.22 better control of sugars lately - [...] Body mass index 40+ - severely obese 138714532 E66.01 Z68.41 see dm abovegaine d wt recently, but motivated to ex more since is feeling better as of late Venereal d isease screening 617183775 Z11.3 pt requested testing [id number] Jose Alfredo Quinn MD Telehealt h [address] [facility] [address] [facility] [place] [address] 04/08/2024 14:23:04 04/08/2024 16:13:59 Anxiety disorder 980053761 F41.9 severe on rafa - ? agoraphobi [...] agoraphobi a - [facility] 12.[facility] - stable, pt requests [...] uptitrate dose. 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 - congratula sierra him on setting this up and encouraged him to go do the best he can on it - wished him well 1.24 - he didn't take pharmacy resource tech test last month, has pending apptmt c [...] states he is looking for a therapist ([facility] evaluated him, gave him a few options for a therapist) , see below Major depr essive disorder 774804378 F32.2 just recently sent updated rx for [...] rder due to type 2 diabetes mellitus 263049671 E11.22 better control of sugars lately - [...] - cont meds as dir Abnormal feces 582411070 R19.5 Vitamin D deficiency 347 36292 E55.9 [id number] Jose Alfredo Quinn MD Main Office [address] [facility] [address] [facility] [place] [address] 11/20/2024 15:06:23 11/20/2024 16:37:24 Adult health examination 161114640 Z00.00 Gastroesop hageal reflux disease 403251795 K21.9 cont ppi as dir by gi Anxiety disorder 8780388 06 F41.9 severe on rafa - ? [...] agoraphobi a - [facility] 12.22 - stable, pt requests [...] uptitrate dose. 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 - congratula sirera him on setting this up and encouraged him to go do the best he can on it - wished him well 1.24 - he didn't take pharmacy resource tech test last month, has pending apptmt c [...] states he is looking for a therapist ([facility] evaluated him, gave him a few options for a therapist) , see below 5.25 - pending start seeing therapist soonrec increase buspar Major depr essive disorder 446326336 F32.2 just recently sent updated rx for wellbutrin - hasn't started yet - urged him to do so (qd initially then increase to bid as gordon)6.23- Taking Wellbutrin with no improvemen t. PHQ 9 score 22. will add buspar 1.24 - see above 8.24 - will refill 9.24 - rafa/phq persists severe - will get psych consult 5.25 - didn't like [facility] (spa receptionist ist), so didn't see themso [facility] Renal diso rder due to type 2 diabetes mellitus 216479772 E11.22 better control of sugars lately - [...] - cont meds as dir Abnormal feces 336407179 R19.5 Vitamin D deficiency 347 29872 E55.9 Otomycosis 84619105 B36. 9 H62.40 09297 R ear Apnea 6125214 R06.81 combinatio n of obstructiv e and central - feeling much better as per pt - cont cpap, f/u c sleep med Chronic ki dney disease stage 1 630626054 N18.1 Hypertensi ve renal disease 23244047 I12.9 bp stable, cont meds as dir Mixed hyperlipidemia 267 783259 E78.2 rec low carb diet to help lower your trigs, cont statin as dir Venereal d isease screening 305007360 Z20.2 Z11.3 Z72.89 pt requested testing Fatigue 61466566 R53.83 8067875 Body mass index 40+ - severely obese 561805212 E66.01 Z68.41 see dm abovegaine d wt recently, but motivated to ex more since is feeling better as of late 546186 Jose Alfredo Quinn MD Main Office [address] [facility] [address] [facility] [address] 04/08/2025 10:16:36 04/08/2025 11:47:28 Renal disorder due to type 2 diabetes mellitus 338908392 E11.22 better control of sugars lately - [...] ozempic is covered Needs infl uenza immunization 473378258 Z23 DECLINED Body mass index 40+ - severely obese 074039060 E66.01 Z68.41 see dm abovegaine d wt recently, but motivated to ex more since is feeling better as of late Vitamin D deficiency 347 09921 E55.9 Naresh - your vitamin D level is a little low. I rec. begin taking an over-the-c ounter vitamin D supplement 2000iu daily, and stop taking it in the summer when you're getting plenty of sunshine - resume fall/ r/spring.9 .25 - recheck level Mixed hyperlipidemia 267 999813 E78.2 cont low carb diet and your statin, but add a krill oil supplement daily to help lower your trigs Hypertensi ve renal disease 39850504 I12.9 bp stable, cont meds as dir Chronic ki dney disease stage 1 410373467 N18.1 Venereal d isease screening 601545105 Z20.2 Z11.3 Z72.89 pt requested testing High risk homosexual behavior 1425853186 18211 Z72.52 8834721 pt interested in PrEP - will get ID eval Health Concerns Section Related Observation LastModified by Organization Detai ls LastModified Time None Recorded Concern Status LastModified by Organization Details LastModified Time None Recorded Advance Directives Directive N: Payers Insurance Date Sequence Insurance Name Policy Number Policy Jeffries Covered Member ID Jeffries Member ID Guarantor Name 11/20/2024 1 [facility] ADVANTAGE (HMO) [id number] Naresh West [id number] Naresh West 06/15/2025 2 MEDICAID-[place]: [facility] Naresh West [id number] Naresh West 11/20/2024 1 [place] [employer] Naresh West [id number] Naresh West 06/15/2025 1 [facility] (MEDICARE REPLACEMENT/ ADVANTAGE - HMO) [facility] Naresh West [id number] Naresh West Notes Date Note Type Note Provider Name and Address Organization Details Recorded Time 4 text/html Diabetes F/UReported by PatientHPIFor context, patient reportsnot seeing eye doctor yearlyandnot taking aspirin dailybut reportschecking feet regularly. For associated symptoms, patient reportsweight loss (___ lbs)but reportsno dizziness,no increased thirst,no increased urination,no blurred vision, andno numbness of feet. Francesca wei, [facility] 10/02/2023 14:03:13 4 text/html Anxiety/DepressionReported by PatientHPIFor context, patient reportsmajor life stressors. For quality, patient reportssymptoms improved. For severity, patient reportsdenies suicidal ideations. For associated symptoms, patient reportsdenies homicidal ideations. 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 For quality, patient reportssymptoms improved. For severity, patient reportsdenies suicidal ideations. For associated symptoms, patient reportsdenies homicidal ideations. 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 For fracture risk, patient reportshistory of fractures (broken wrist at 7yo)andprevious musculoskeletal injuriesbut reportsno recent explained fractureandno sudden unexplained fractures. For physical activity, patient reportsdecreased physical activity,poor physical condition, anddeconditioned due to sedentary lifestylebut reportsdiscussed weightbearing activitiesanddiscussed exercise habits.Mental Status:For depression risk, patient reportsfeels sad, empty, or tearful (sometimes),loss of interest in activities,significant changes in weight,sleep disturbances or insomnia,loss of energy,feelings of worthlessness or guilt,history of mood disorders (adhd, ptsd, and anxiety), andhistory of depression. For concentration and memory, patient reportsdecreased concentrating ability (sometimes).Functional AbilityFor hearing, patient reportsno loss of hearing. For vision, patient reportsno vision problems. For instrumental activities of daily living, patient reportsable to do house work with limited or no assistance. For falls risk assessment, patient reportsno frequent falls while walking. Here for annual wellness visit. Pt is [...] anxious or depressed he eats more. Clary Morales PA-C [address], [address], [facility] 11/20/2024 17:15:40 5 text/html Diabetes F/UReported by PatientHPIFor context, patient reportsnot seeing eye doctor yearlyandnot taking aspirin dailybut reportschecking feet regularly. For associated symptoms, patient reportsno dizziness,no increased thirst,no increased appetite,no increased urination, andno numbness of feet. Clary Morales PA-C [address], [address], [facility] 04/08/2025 17:38:11
--- OUTSIDE RECORDS SUMMARY | 2025-06-15 12:38 | XMS_ITS | Clinical Summary ---
Author Organization [address] [place] [address] [place] [address] Phone Care Team Providers Care Venue Manager Name Role Phone Warren Lacy Primary Care Provider [phone] Allergies Active Allergy Reactions Criticality Noted Date [...] - 04/22/2025 11:59 PM EDT Hospital Encounter [facility] Ultrasound [address] [place] [address] Thyrotoxicosis without thyroid storm, unspecified [...] AM EST Office Visit Orthopedic Surgery - [place] [address] [phone] Juan Martinez, DPM [address] [place] [address] Health Maintenance Due Date Last Done Comments [...] Depression Screening 07/16/2024 COVID-19 Vaccine (1 - 2024-2 6 season) 2025 Influenza Vaccine (#1) 2025 7, [...] the thyroid gland. Otherwise, normal examination. Code 73717 -------- FINAL REPORT -------- Dictated By: Naveen Gan Dictated Date: 04/27/2025 11:18 ET Assigned Physician: Naveen Gan Reviewed and Electronically Signed By: Naveen Gan Signed Date: 04/27/2025 11:21 ET Workstation ID: [id number] Transcribed By: Self Edit Transcribed Date: 04/27/2025 [...] the thyroid gland. Otherwise, normal examination. Code 41414 -------- FINAL REPORT -------- Dictated By: Naveen Gan Dictated Date: 04/27/2025 11:18 ET Assigned Physician: Naveen Gan Reviewed and Electronically Signed By: Naveen Gan Signed Date: 04/27/2025 11:21 ET Workstation ID: [id number] Transcribed By: Self Edit Transcribed Date: 04/27/2025 11:18 ET us Warren SCHULER IMG US PROCEDURES Final Resu lt * Annual BMP Blood Test (05/18/2022) Annual BMP Blood Test abstracted us Historical Provider HEALTH MAINTENANCE Final Result from Last 3 Months or Most Recently Relevant to Health Maintenance Insurance [place]ICAID - [place] [employer] MEDICARE Care Teams Venue Manager Relationship Specialty Start Date End Date Warren Lacy PA [address] [address] PCP - General Internal Medicine 04/19/22
== END 2025-06-15 10:14 | disposition home or self-care (01) ==
LOC: HO.LAB 10:13
PROVIDERS: PCP Physician Assistant Medical; Visit Provider Student in an Organized Health Care Education/Training Program
DX: E05.90 Thyrotoxicosis, unspecified without thyrotoxic crisis or storm (principal)
CPT/HCPCS: 36415; 84439; 84443; 84445; 84480

== ENCOUNTER 2025-06-23 11:00 | Outpatient (AMB) | payer MEDICARE, MEDICAID, SELFPAY ==
[2025-06-23 11:11] VITALS: BP 124/80; PULSE 74; O2SAT 98; BMI 41.2
--- NOTE | 2025-06-23 11:11 | MHC.OFFVIS ---
Vital Signs 06/23/25 11:11 Height 5 ft 8 in Weight 271 lb 2.697 oz BMI 41.2 BP 124/80 Blood Pressure Location Rt brachial Position Sitting Pulse 74 Pulse Source Pulse Oximeter Pulse Oximetry (%) 98 Oxygen Delivery Method Room Air Intake Visit Reasons: Hyperthyroidism Intake Note: Patient presents today for a follow-up on for Subclinical Hyperthyroidism: Repeat Thyroid Function Tests (TSH, free T4, TSI): Completed on 06/15/2025 Collar Pointer Required: No Accompanied by: Self / Same As Patient Allergies amlodipine Allergy (Mild, Verified 06/23/25 11:15) Chest Pain citalopram Allergy (Mild, Verified 06/23/25 11:15) unk dulaglutide ([facility]) Allergy (Mild, Verified 06/23/25 11:15) Constipation HPI Comments Details: 50 yo male with PMH of T2DM, LIZETH, obesity, GERD, seen in the office for evaluation of subclinical hyperthyroidism. The patient presents for evaluation of abnormal thyroid function. The thyroid workup was initiated due to a combination of family history (mother and aunt with thyroid disease, although no clear if family history of thyroid cancer), and the patient?s own symptoms, including intermittent neck swelling over the past 4?5 years, difficulty losing weight, persistent fatigue, and subjective intolerance to heat (with some irritability and hot flashes). The patient also reports occasional palpitations and hand tremors, both of which have been present intermittently for over a year, but are less frequent now. There is no history of significant weight loss; rather, the patient has had difficulty losing weight and has remained at a stable weight for some time. The patient denies significant dysphagia, though occasionally needs to swallow multiple times with solids. There is no history of neck radiation exposure. The patient has not previously had thyroid function tests until recently. She is taking a vitamin supplement containing vitamin K and D, and possibly iodine, but is not taking biotin or other supplements known to interfere with thyroid assays. On review of prior labs, TSH was slightly abnormal, but TPO and thyroglobulin antibodies were negative. Thyroid ultrasound (performed at an outside facility) showed no nodules and only mild asymmetry in gland size, with overall volumes within normal limits. No significant enlargement or suspicious features were noted. The patient?s symptoms are not clearly consistent with either overt hyperthyroidism or hypothyroidism, and there is no evidence of thyroid eye disease. Physical exam General: Well appearing. NAD. Neck/Thyroid: Thyroid not palpable, no nodules. Eyes: No conjunctival injection, not lid lag or proptosis CV: RRR, no murmur. No edema. Resp:Lungs clear to auscultation bilaterally Abdomen: Soft, nontender. nondistended Extremities/Neuro: No weakness or tremor of outstretched hands Interval history: Reports feeling well overall Denies palpitation, chronic anxiety or hyperdefecation He is taking a supplement that does not contain biotin Labs Laboratory Tests 06/15/25 10:43 TSH 0.14 L Free T4 1.12 Total T3 122 Thyroid Stim Immunoglob <89 Imaging Patient had an ultrasound done on 04/20/2025, which I was able to see through his phone and showed that there is no evidence of thyroid nodules although gland might look slightly increased. We will obtain records to get this ultrasound to his records here. [facility] Medical History Apnea Chronic kidney disease, stage 1 Hematochezia GERD (gastroesophageal reflux disease) Temporomandibular joint (TMJ) pain Hemorrhoid Hypertensive renal disease Insomnia Drug abuse Tobacco dependence Panic disorder with agoraphobia Anxiety disorder Major depressive disorder Morbid obesity Mixed hyperlipidemia Renal disorder Onychomycosis of toenail Surgical History H/O esophagogastroduodenoscopy H/O colonoscopy Family History Father History of diabetes mellitus, type II Mother Hyperparathyroidism History of diabetes mellitus, type II Maternal Aunt Thyroid disease Social History Alcohol intake: current Alcohol intake frequency: holidays/special occasions only Patient Tobacco Use Status: Current everyday Tobacco user Physical Exam Vital Signs: Last Vital Signs Pulse 74 06/23/25 11:11 BP 124/80 06/23/25 11:11 Pulse Ox 98 06/23/25 11:11 Oxygen Delivery Method Room Air 06/23/25 11:11 BMI result Body Mass Index 41.2 Assessment & Plan Assessment & Plan (1) Subclinical hyperthyroidism: Code(s): E05.90 - Thyrotoxicosis, unspecified without thyrotoxic crisis or storm Category: Medical Plan: Symptoms are nonspecific and do not clearly indicate overt hyper- or hypothyroidism. TSH slightly abnormal on initial testing; TPO and thyroglobulin antibodies negative. Thyroid ultrasound: no nodules, mild asymmetry, overall slightly enlarged thyroid gland. No evidence of compressive symptoms or significant dysphagia. Repeated thyroid function tests showed suppressed TSH, normal free T4, normal T3 and TSI consistent with subclinical hyperthyroidism. We discussed the potential detrimental effects of excess thyroid including arrhythmias and osteoporosis. Patient elected to monitor but is willing to undergo uptake scan if TSH is persistently suppressed after next blood work. Plan Continue to monitor for development of new symptoms (palpitations, weight changes, heat/cold intolerance, neck swelling). Request outside thyroid ultrasound report for documentation and review, pending Educate patient regarding the benign nature of mild gland asymmetry and the low likelihood of malignancy in the absence of nodules or suspicious features. Follow up in 3 months Plan 30 minutes minutes spent reviewing previous records, labs, imaging, education and documenting in the chart Orders: Orders TSH reflex Free T4 8 Weeks E05.90 - Thyrotoxicosis, unspecified without thyrotoxic crisis or storm Free T4 (Free Thyroxine) 8 Weeks E05.90 - Thyrotoxicosis, unspecified without thyrotoxic crisis or storm Triiodothyronine T3 Free 8 Weeks E05.90 - Thyrotoxicosis, unspecified without thyrotoxic crisis or storm Coding Level of Care Code Complex visit Add On G2211 Diagnoses Subclinical hyperthyroidism E05.90
== END 2025-06-23 11:49 | disposition home or self-care (01) ==
LOC: HO.ENCR 11:01
PROVIDERS: PCP Physician Assistant Medical; Visit Provider Student in an Organized Health Care Education/Training Program
DX: E05.90 Thyrotoxicosis, unspecified without thyrotoxic crisis or storm (principal)
CPT/HCPCS: 99213; G2211

== ENCOUNTER → 2025-06-23 11:00 | Outpatient (BNVA) | payer OTHER, SELFPAY | PROVIDERS: PCP Physician Assistant Medical; Visit Provider Student in an Organized Health Care Education/Training Program | DX: E05.90 Thyrotoxicosis, unspecified without thyrotoxic crisis or storm (principal); E66.9 Obesity, unspecified; Z68.41 Body mass index [BMI] 40.0-44.9, adult | CPT/HCPCS: 99212 ==